=== PATIENT | female | born 1960 | race Caucasian/White ===

== ENCOUNTER → 2016-06-24 | Day surgery (SDC) | payer BC ==
[~2016-06-24] MED LIST: Buffered Lidocaine 1% SYR 3ML* 3 ML/SYR SYRINGE INTRADERM ONE; Bupivacaine 0.25% SDV* 30 ML ONE; Bupivacaine 0.5% W/EPI SDV* 30 ML VIAL ONE; DiMENhydriNATE IV* 50 MG/ML VIAL IV PUSH PRN; Metoclopramide TAB* 10 MG ONE; Metoclopramide TAB* 10 MG PO ONE; Midazolam* 1 MG/ML 5 ML VIAL (5 MG) ONE; Ondansetron INJ* 2 MG/ML VIAL IV PRN; Ondansetron INJ* 2 MG/ML VIAL ONE; Propofol* 10 MG/ML 20 ML BTL IV PUSH ONE; Scopolamine 1.5 mg* PATCH ONE; Scopolamine PATCH Remove* 1 NOTE MISC PATCH OFF ONE; ceFAZolin 2 GM PREMIX (*) 2 GM/50 ML BAG IVPB ONE; fentaNYL* 50 MCG/ML 2 ML VIAL (100 MCG VIAL) IV PRN; fentaNYL* 50 MCG/ML 2 ML VIAL (100 MCG VIAL) ONE; oxyCODONE/Acetamin 5/325 MG* TAB PO PRN
[2016-06-24] MEDS: Scopolamine 1.5 mg* PATCH TRANSDERM ONE ×2 (10:50→12:44)
[2016-06-24 15:55] VITALS: BP 128/64
--- NOTE | 2016-06-30 00:14 | OP ---
DATE OF OPERATION: 06/24/16 - [facility] DATE OF : 58 SURGEON: Modesto Cao MD CAR USHER: SANGITA Goodwin ANESTHESIOLOGIST: Dr. Rl Presley. ANESTHESIA: General. 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 POST-OP DIAGNOSES: 1. 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 2. Right scaphotrapezoid degenerative joint disease. OPERATIVE PROCEDURES: 1. Right thumb carpometacarpal interposition arthroplasty with trapeziectomy. 2. Distally based split flexor carpi radialis tendon transfer for thumb suspension. 3. Right partial trapezoidectomy. INDICATIONS: Xiao is a patient on whom I have done a left carpometacarpal arthroplasty and partial trapezoidectomy. She has had good pain relief and her motion is improving. She presented with similar severe pain in the right thumb. She wanted to proceed with surgery. We discussed risks and benefits including risk of stiffness and persistent pain. ESTIMATED BLOOD LOSS: 5 mL. COMPLICATIONS: None. FINDINGS: Degenerative joint disease in both the carpometacarpal joints of the thumb and in the scaphotrapezoid joints. DESCRIPTION OF PROCEDURE: Xiao was seen in the preoperative holding area and the correct site and side were marked. We came back to the operating room where anesthesia was induced. The arm was prepped and draped in the usual fashion and a formal time-out was performed. The arm was exsanguinated with the Esmarch and the tourniquet inflated to 250 mmHg. A longitudinal incision was made from the base of the thumb metacarpal proximal just staying dorsal to the first dorsal compartment tendons. Dissection was carried down and care was taken to preserve the dorsal sensory nerves. Full- thickness flaps were raised off the capsule of the basal joint. The radial artery was identified and mobilized, and protected throughout the procedure. I then made a longitudinal incision opening the capsules of the scaphotrapezoid joint and then the carpometacarpal joint, full thickness capsule and periosteal flaps were raised to release the soft tissue attachments around the trapezium. The basal joint, the trapeziotrapezoid joint and the scaphotrapezoid joint were all identified. I then went ahead and removed the trapezium with a rongeur. The FCR tendon was identified in the base of the wound and care was taken to preserve it throughout the trapeziectomy. Once all the bone was removed, I went ahead and made a drill hole through the base of the thumb metacarpal in a standard fashion from distal dorsal radial to proximal volar ulnar. I then went ahead and irrigated the wound and turned our attention to the volar forearm. After the trapeziectomy had been completed. I went ahead and pulled some longitudinal traction on the index finger and using a freer to get little bit more space, I was able to look at the scaphotrapezoid joint. There was complete full thickness loss of the cartilage on the distal aspect of the scaphoid. I therefore turned my osteotome and excised the most proximal 3 mm of the trapezoid. There was no more contact between the proximal trapezoid and the distal pole of the scaphoid with motion and with axial loading of that joint. I made a transverse incision over the distal aspect of the FCR tendon just proximal to the volar wrist flexion crease. The tendon was identified. I made two more transverse incisions each about 7 or 8 cm more proximal than the prior incision. All adhesions were released about the flexor carpi radialis tendon. I then delivered the tendon up into the most distal wound and split the tendon with a 15 blade. I passed a 26 gauge wire through the splint in the tendon. This was then sequentially pulled in to the two more proximal wounds, completing the split of the tendon in the musculotendinous junction. I then delivered the split into the tendon down into the distal wound and freed up and continued to split down in to the flexor carpi radialis sheath with a tenotomy scissors. A 26 gauge wire was then used to shuttle the tendon down into the thumb base wound. The split in the tendon was continued all the way down to the base of the second metacarpal with a tenotomy scissors. I then passed the free tail through the bony tunnel back around the intact limb of the FCR tendon and then set the tension and secured the tendon transverse with 3-0 Ethibond suture. The rest of the tendon was rolled up and secured as a ball with a 3-0 Ethibond suture. This was placed in an interposition fashion between the base of the thumb metacarpal and the distal scaphoid. A free tail of the tendon was left out of the ball and was placed as an interposition between the distal pole of the scaphoid and the proximal aspect of the trapezoid, where the partial trapezoidectomy had been performed. At this point, I was very satisfied with the interposition of the tendon and the partial trapezoidectomy. So we went ahead and irrigated with wound. The capsule was closed with some 3-0 Ethibond suture. The skin at the thumb base wound was closed using 4-0 nylon. The volar forearm wounds were closed with a buried 3-0 Polysorb followed by 4-0 nylon to close the skin. All wounds were dressed with Xeroform, 4x4s, sterile Webril and then a thumb spica splint was placed leaving the IP joint free. She was then awoken back up and taken the recovery room in stable condition. [id number]/[facility] #: [id number] [place]
== END | disposition home or self-care (01) ==
LOC: OREAST 10:34
PROVIDERS: ATTEND Orthopaedic Surgery Hand Surgery
DX: M18.11 Unilateral primary osteoarthritis of first carpometacarpal joint, right hand (principal); M19.041 Primary osteoarthritis, right hand; E03.9 Hypothyroidism, unspecified; K51.90 Ulcerative colitis, unspecified, without complications
CPT/HCPCS: 88304; 88311; A9270-GY; J0690; J2250; J2405; J2704; J3010

== ENCOUNTER 2018-11-27 20:02 | Emergency (ER) | payer BC ==
--- OUTSIDE RECORDS SUMMARY | 2018-11-27 20:10 | XMS REPORT | Continuity of Care Document ---
:1960 External Reference #:[id number] Author Name Gabriel Becker D.O. Address [address] [place] [address] Care Team Providers Name Role Phone HCP given Primary Care Physician Unavailable Payers Date Identification Numbers Payment Provider Subscriber Policy Number: [id number] [employer] Xiao Gorman PayID: [id number] [address] [address] [place] [address] Problems Active Problems Provider Date Hypothyroidism Yulissa Lopez MD Onset: 07/18/2008 Gastroesophageal reflux disease Yulissa Lopez MD Onset: 07/18/2008 Degeneration of cervical intervertebral disc Jose Scott M.D. Onset: Ulcerative colitis Jose Scott M.D. Onset: 01/19/2010 Backache Gabriel Becker D.O. Onset: 11/14/2013 Low back pain Gabriel Becker D.O. Onset: 11/14/2013 Rosacea Gabriel Becker D.O. Onset: 12/14/2013 Generalized osteoarthritis of the hand Gabriel Becker D.O. Onset: 12/14/2013 Psoriasis Gabriel Becker D.O. Onset: 12/27/2013 Benign neoplasm of colon Yulissa Lopez MD Onset: 01/09/2014 Insomnia Yulissa Lopez MD Onset: 01/09/2014 Osteochondropathy Gabriel Becker D.O. Onset: 01/16/2014 Disorder of magnesium metabolism Gabriel Becker D.O. Onset: 08/13/2015 Iron deficiency anemia Gabriel Becker D.O. Onset: 08/13/2015 Headache Gabriel Becker D.O. Onset: 08/13/2015 Anxiety state Gabriel Becker D.O. Onset: 12/29/2016 Family History Date Family Member(s) Observation Comments Father Hypertension Father Lymphoma Father TIA Father Alzheimer's Disease Father Colon Polyps Father Merry Louise Mother Glaucoma Mother Hypercholesterolemia Mother Colon Polyps Mother Moira Louise Number of Children 2 sons and 1 daughter. First Son Lenny Second Son Mohsen Second Daughter Migraine Second Daughter Violeta First Brother Hypercholesterolemia Second Brother Hypercholesterolemia First Sister Hypercholesterolemia Maternal Grandmother due to MS () Social History Type Date Description Comments Sex Unknown Education Highest Level Completed College Marital Status 2 Times Lives With in the warmer months she [place], in the winter they rent a condo in [place] and sail there as well. 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 Work Status Currently Working Hand Dominance 10/13/2018 Right-handed Abuse No history of abuse Tobacco Use Start: Unknown Denies Cigarette Use ETOH Use Rarely consumes alcohol Recreational Drug Use Former Drug User Tobacco Use Start: Unknown Non Smoker / No Tobacco Recreational Drug Use Denies Drug Use Current Smoking Status Reviewed: 10/13/18 Non Smoker / No Tobacco Sun Exposure excessive amount of sun exposure Sun Exposure Does not use sunscreen Seat Belt/Car Seat always uses seat belt Currently Active Patient is currently not sexually active Age 1st [place] 21 Years Old # Partners in a Lifetime Partners 1-5 Allergies, Adverse Reactions, Alerts Active Allergies Reaction Severity Comments Date Gabapentin 05/20/2011 Celexa 04/07/2012 Meloxicam Moderate Nausea and abd pain 11/01/2012 Mobic Moderate Nausea and abd pain 11/01/2012 Inactive Allergies NKDA 02/13/2004 Medications Active Medications SIG Qnty Indications Ordering Date Provider Alendronate Sodium take 1 tablet every 12tabs M81.0 [facility], 11/22/2018 week 30 mins before Lelo Rios. 35mg Tablets meal with 8 oz of water. do not lie down for 30 minutes after taking. Zolpidem Tartrate take 1/2-1 tablet by 30tabs G47.00 [facility], 11/20/2018 mouth at bedtime if Gabriel D.O. 10mg Tablets needed for sleep Bupropion take 1 tablet by 90tabs F34.1 [facility], 10/30/2018 Hydrochloride ER mouth once daily Adrian Rios (XL) 150mg Tablets ER 24HR Pepto Bismol prn Unknown 10/12/2018 Estradiol intravaginally twice Gannon, 09/18/2018 10mcg weekly MD Gloria Tablets Clobetasol apply to affected Gannon, 07/13/2018 Propionate area twice a day x MD Gloria 0.05% 7 days and then Ointment daily x 7 days Escitalopram Oxalate take 1 tablet by 30tabs F41.9 [facility], 06/20/2018 mouth once daily Adrian Rios 10mg Tablets Triamcinolone apply to affected 5gm [facility], 06/30/2017 Acetonide areas in mouth Adrian Rios 0.1% Cream 3-4x/d as needed Flonase Allergy 2 sprays each 47.400ml H65.23 [facility], 01/11/2017 Relief nostril in the Adrian Rios 50mcg/Act morning Suspension Meclizine HCL 1 tab by mouth three 90tabs H81.12 Darcie [place], 01/06/2017 25mg times a day as PA Tablets needed dizziness Ranitidine 150 1 cap by mouth twice 60tabs R11.0 [facility], 12/29/2016 Maximum Strength a day as needed Adrian Rios 150mg Tablets Calcium 1 daily Unknown 12/28/2016 500mg Colace 1 daily as needed Unknown 12/28/2016 100mg Capsules Carafate 10ml four times a 420ml [facility], 12/28/2016 1GM/10ML day as needed Adrian Rios Suspension Gas-X prn Unknown 12/28/2016 Benzoyl apply 1 application 46.600gm L71.8 [facility], 08/20/2016 Peroxide-Erythromyci topically to Adrian Rios n affected area 2 5-3% Gel times per day Magnesium 1 po twice daily Unknown 06/20/2016 100mg Tylenol 2 tablet by mouth Unknown 06/20/2016 325mg Tablets [id number] as needed for pain otc Ondansetron HCL 1 by mouth three 30tabs R11.0 [facility], 05/19/2016 4mg times a day as Gabriel, D.O. Tablets needed for nausea Levothyroxine Sodium Take 1 Tablet By 30tabs E03.8 [facility], 08/13/2015 Mouth Every Day Gabriel D.O. 100mcg Tablets Benzonatate 1 by mouth three 90caps [facility], 07/17/2015 200mg times a day as Gabriel, D.O. Capsules needed cough Soma 1 tab by mouth 90tabs M54.2 [facility], 12/28/2012 350mg Tablets t.i.d, as needed Gabriel, D.O. Lidoderm apply up to 3 30units M54.5 [facility], 09/03/2011 5% Patches patches to affected Reanna Garcia area for up to 12 hours a day as needed Diazepam 1 by mouth three 90tabs M54.89 [facility], 10/14/2006 5mg Tablets times a day as Gabriel, D.O. needed for back pain M54.2 Vitamin D3 1 by mouth every day Unknown 1000Unit Capsules Gluten Cutter Digestive as needed Unknown Enzyme Probiotic 2 capsules by mouth 180caps Yulissa Lopez MD Capsules daily. please cover the cost of this med. Xiao relies on it to regulate her bowels. History Medications Gas X prn Unknown 10/12/2018 - 11/21/2018 Zolpidem Tartrate ER take 1 tablet by 14tabs G47.00 [facility], 08/04/2018 - mouth daily at Gabriel D.OAbraham 11/20/2018 6.25mg Tablets ER bedtime Cefdinir 1 cap by mouth twice 14caps J01.90 [facility]onia, 07/17/2018 - 300mg a day x 7 days Reanna Garcia 08/05/2018 Capsules Mupirocin apply ointment 3 22gm J01.90 Sonia, 07/17/2018 - 2% Ointment times a day to in Reanna Garcia 08/05/2018 nose for 5 days Temazepam 1 qhs for sleep, prn 30caps G47.00 [facility], 07/17/2018 - 7.5mg Reanna Garcia 08/04/2018 Capsules Bactroban Nasal Apply 1 application 10gm [facility], 06/20/2017 - 2% into nostrils 2 times Adrian Rios 06/20/2017 Ointment per day for 5 days Bactroban Apply 1 application 15gm [facility], 06/20/2017 - 2% Cream topically to affected Adrian Rios 07/20/2017 area 3 times per day for 10days for skin infection Tobramycin 1 drop three times a 5ml [facility], 04/09/2017 - 0.3% day for 7 days Adrian Rios 04/16/2017 Solution Diurex as directed, 4 times Unknown 02/01/2017 - 50-162.5mg a day as needed when 07/16/2018 Tablets pt feels ears fill w/fluid Chelated Iron 2-3 times a week when Unknown 02/01/2017 - 29mg shaky or weak 09/29/2017 Lexapro 1 by mouth every day 30tabs F41.9 [facility], 01/11/2017 - 10mg Tablets Adrian Rios 06/20/2018 Zolpidem Tartrate ER take 1 tablet by 14tabs G47.00 [facility], 12/29/2016 - mouth daily at Thomas RiosOAbraham 01/10/2017 6.25mg Tablets ER bedtime Premarin 0.5 grams 30gm N89.8 [facility], 12/29/2016 - 0.625mg/GM intravaginally Thomas RiosOAbraham 10/12/2018 Cream twice-weekly Lexapro 1 by mouth every day 30tabs F41.9 [facility], 12/29/2016 - 5mg Tablets Thomas RiosOAbraham 01/11/2017 Zolpidem Tartrate 1/2-1 tablet by mouth 30tabs G47.00 [facility], 11/24/2016 - at bedtime for sleep Adrian Rios 07/17/2018 10mg Tablets code a mdd 1 Meclizine HCL take 2 tablet by 27tabs R42 [facility], 05/19/2016 - 25mg mouth 3 times per day Thomas RiosOAbraham 06/20/2016 Tablets for 3 days then 1 by mouth 3 times a day for 3 days then stop Ventolin HFA inhale 2 puffs by 16gm J20.9 [facility], 04/14/2016 - mouth every 4 hours Mark Rios.O. 06/20/2016 108(90Base) mcg/Act as needed for Aerosol bronchospasm Tylenol Extra 2 by mouth every 8 Unknown 04/13/2016 - Strength hours as for pain 06/21/2016 500mg Tablets Fluticasone 2 sprays into each 48units J01.00 [facility], 09/12/2015 - Propionate nostril once-twice Gabriel, D.O. 10/13/2015 50mcg/Act daily for nasal Suspension congestion Azithromycin take 1 tablet by 3tabs J01.00 [facility], 08/26/2015 - 500mg mouth daily for 3 Gabriel D.O. 08/29/2015 Tablets days for infection Slow-Mag 1-2 by mouth at night 60tabs E83.42 [facility], 08/13/2015 - 71.5-119mg Gabriel D.O. 06/20/[address] Iron (Ferrous 1 by mouth once to 180tabs D50.9 [facility], 08/13/2015 - Gluconate) twice a day Mark Rios.O. 10/13/2015 256(28Fe) mg Tablets Vitamin D3 Maximum 1 by mouth every day 90caps [facility], 08/04/2015 - Strength or 7 tablets once a Mark Rios.O. 10/13/2018 5000Unit week Capsules Iron Supplement 1 by mouth twice a 180tabs [facility], 08/04/2015 - day Gabriel D.O. 11/04/2015 325(65Fe) mg Tablets Amoxicillin/Clavulan 1 by mouth twice a 20tabs 01.00 [facility], 07/14/2015 - ate Potassium day Gabriel D.O. 07/22/2015 875-125mg Tablets Flonase Allergy 2 sprays twice a day 47.400ml [address] [place] [address], 07/14/2015 - Relief until better. Mark Rios.O. 09/12/2015 50mcg/Act Suspension Triamcinolone apply to affected 5gm [facility], 05/20/2015 - Acetonide areas in mouth 3-4x/d Mark Rios.O. 06/20/2016 0.1% Paste as needed Levothyroxine S[facility] 1 by mouth [facility]2014 - Adrian Rios 08/13/2015 112mcg Tablets Zolpidem Tartrate 1 every night at 30tabs G47.00 [facility], 07/16/2014 - bedtime as needed Adrian Rios 12/29/2016 10mg Tablets sleep code a, d Ferrousul 1 tab by mouth in hs. 100tabs Yulissa Lopez 01/23/2014 - 325(65Fe) for one week. if 02/22/2014 mg Tablets tolerable increase to one tab by mouth bid. start post hemmocult testing. Levoxyl one tab po daily 90tabs 244.8 Yulissa Lopez 01/23/2014 - 100mcg instead of the 112 10/12/2014 Tablets microgram dosing. labs in one month Celebrex one by mouth twice a 60caps M54.89 [facility], 01/09/2014 - 100mg day as needed pain Adrian Rios 10/11/2015 Capsules Physical And Massage 2x week indefinitely 724.5 Yulissa Lopez 01/09/2014 - Therapy 02/01/2017 Clobetasol use up to twice a day 118ml L45 [facility], 12/27/2013 - Propionate for 2 weeks for Adrian Rios 10/12/2018 0.05% psoriasis flares. Shampoo Bupropion HCL ER Take 1 Tablet By 90tabs F34.1 [facility], 12/21/2013 - (XL) Mouth Every Day Adrian Rios 10/30/2018 150mg Tablets ER 24HR Psoriasin use 1 - 4 times daily QS 696.8 [facility], 11/14/2013 - 3% Liquid until resovled then Adrian Rios 12/15/2013 decrease to 2-3 times/week Benzonatate 1 po prn cough q 8 30caps [facility], 10/09/2013 - 100mg hrs Adrian Rios 01/09/2014 Capsules Flonase inhale 2 sprays into 1units [facility], 10/09/2013 - 50mcg/Act nostril daily in each Adrian Rios 10/09/2014 Suspension nostril for nose inflammation Erythromycin/Benzoyl apply 1 application 46.600gm 695.3 [facility], 2013 - Peroxide topically to affected Thomas RiosO. 08/20/2016 5-3% Gel area 2 times per day Triamcinolone apply bid- three 60ml L71.8 [facility], 10/08/2013 - Acetonide times a day to GabrielMark.O. 02/01/2017 0.025% affected area Lotion Cream 5% cyclobenzaprine, 729.82 [facility], 08/30/2013 - 5% gabapentin. apply Mark Rios.O. 04/15/2015 to feet nightly to prevent cramps. # 30 grams 715.04 Medrol taper starting 6 21tabs 354.0 [facility], 06/08/2013 - 4mg Tablets tab,5 tabs...1 tab Mark Rios.O. 08/15/2013 qd. Take 5 ml by mouth 1bottle [facility], 01/26/2013 - 16.2mg/5ML 3 times per day Thomas RiosO. 08/16/2013 Elixir for acute small and large intestine inflammation Biaxin Take 1 tablet by 20tabs 461.0 [facility], 01/22/2013 - 500mg Tablets mouth every 12 Gabriel, D.O. 06/08/2013 hours for 10 days for sinus irritation and congestion Voltaren apply to painful 60gm 723.1 [facility] 01/12[facility]2013 - 1% Gel areas prn Reanna Garcia 10/07/2013 pain.wait 10 min before getting dressed to prevent rubbing off.samples given Diflucan 1 tablet, 1 time 1tabs 616.10 Sonia, 12/05/2012 - 150mg Tablets Reanna Garcia 12/06/2012 Diclofenac Sodium 1 po tid , prn 60tabs 715.90 Sonia, 11/23/2012 - 50mg Reanna Garcia 01/19/[address] Azithromycin 2 tabs day one, 6tabs Sonia, 11/11/2012 - 250mg one tab days 2-5 Reanna Garcia 11/17/2012 Tablets Amoxicillin/Clavulanat 1 tab po bid x 10 20tabs 461.2 [facility]onia, 11/01/2012 - e Potassium Reanna Garcia 11/02/2012 875-125mg Tablets Celebrex take 1 capsule by 180caps 724.5 [facility]onia, 11/01/2012 - 200mg Capsules mouth 1 To 2 Times Reanna Garcia 01/09/2014 Per Day as Needed For Back Pain Meloxicam 1 po bid 60tabs 724.5 Sonia, 10/12/2012 - 7.5mg Tablets Reanna Garcia 11/01/2012 Celebrex take 1 capsule by 180caps 724.5 Sonia, 05/19/2012 - 200mg Capsules mouth 1 To 2 Times Reanna Garcia 10/12/2012 Per Day as Needed For Back Pain Zolpidem Tartrate 1 every at bedtime 30tabs 780.52 [facility], 03/17/2012 - 10mg as needed sleep Gabriel D.Theodore 02/08/2014 Tablets Citalopram 1 tab qd x 1 week 60tabs 300.00 Sonia, 03/15/2012 - Hydrobromide then increase to 2 Reanna Garcia 04/07/2012 10mg Tablets tabs qd Mucinex DM 1 bid prn cough OTC Sonia, 10/05/2011 - 30-600mg Reanna Garcia 10/05/2012 Tablets ER 12HR Prochlorperazine take 1 tablet by 30tabs Sonia, 09/30/2011 - Maleate mouth three times Reanna Garcia 10/05/2012 10mg Tablets a day if needed for nausea Tramadol HCL 1-2 by mouth every 200tabs 724.2 [facility]onia, 09/03/2011 - 50mg Tablets 6 hours as needed Reanna Garcia 10/08/2013 for back pain Fluticasone Propionate 2 sprays into each 48gm 473.0 Rosita, 09/03/2011 - nostril once-twice Gabriel D.OAbraham 10/09/2013 50mcg/Act Suspension daily for nasal congestion 473.1 Gabapentin 1 po starting qhs 90caps 729.2 Jose Scott 04/08/2011 - 100mg x 5 days then bid M.D. 05/20/2011 Capsules x 5 days then tid. Celebrex 1 capsule 60caps 724.5 Jose Scott, 04/08/2011 - 200mg 1-2x/day as M.D. 03/17/2012 Capsules needed for back pain Compazine 1 tablet 3x/day 30tabs 787.01 Jose Scott, 01/12/2011 - 10mg as needed for M.D. 05/19/2012 Tablets nausea Sumatriptan 1 po at first 9tabs 784.0 Jose Scott, 12/28/2010 - Succinate sign of migraine; M.D. 10/05/2011 100mg may repeat in 2 Tablets hours if migraine partially relieved; max 3 doses/week Amoxicillin 2 po tid for 10 60tabs 784.0 Jose Scott, 12/28/2010 - 500mg days for M.D. 01/07/2011 Tablets sinusitis Bupropion HCL XL Take 1 tab Daily 180tabs 300.4 Jose Scott, 2010 - M.D. 10/23/2017 150mg Tablets ER 24HR Ferrous Fumarate 1 by mouth every 780.79 Jose Scott, 09/28/2010 - 324 day M.D. 12/25/2010 324mg Tablets 280.9 Terazol 7 use daily as 45gm 112.1 Jose Scott, 08/15/2010 - 0.4% directed x1wk for M.D. 08/22/2010 Cream yeast infection Vitamin D-3 1 po qd Unknown 07/27/2010 - 03/28/2012 1000Unit Tablets Ferrous Fumarate 1 tab po bid 180tabs 780.79 Jose Scott, 07/05/2010 - 324 M.D. 09/28/2010 324mg Tablets 280.9 Bupropion HCL XL 1 po qam 90tabs 300.4 Sonia, 07/03/2010 - Reanna Garcia 10/19/2010 300mg Tablets ER 24HR Bupropion HCL SR 1 pill every 300.4 Sonia, 07/02/2010 - morning Reanna Garcia 07/03/2010 150mg Tablets ER 12HR Ferrous Fumarate 324 1 tab po bid 180tabs 780.79 Sonia 06/29/2010 - Reanna Garcia 07/03/2010 324mg Tablets Dicyclomine HCL 1-2 po tid prn for 180caps 789.07 Sonia, 06/26/2010 - 10mg abdominal pain Reanna Garcia 01/09/2014 Capsules Nortriptyline HCL 1 po qhs to start; 150caps 723.1 Sonia, 02/11/2010 - inc by 1 tab q3-7 Reanna Garcia 07/02/2010 10mg Capsules days if needed; max 5 pills/night; Fish Oil 3 qd Sonia, 01/19/2010 - 1200 Reanna Garcia 03/28/2012 Capsules Ambien 1 tab po qhs prn 30tabs 780.52 Sonia, 01/19/2010 - 10mg Tablets for sleep Reanna Garcia 03/15/2012 Probiotic Formula Sonia, 01/19/2010 - Reanna Garcia 03/28/2012 Capsules Pantoprazole Sodium take 1 tablet once 90tabs 530.81 Gabriel Becker 12/26 - a day as needed D.O. 11/20/2015 40mg Tablets Bupropion HCL SR 1 po bid; take 180tabs 300.4 Eugeniecoaneesh, 12/25/2009 - last dose of the Reanna Garcia 07/02/2010 150mg Tablets ER day by mid 12HR afternoon Lialda 2 po qam 556.5 Juan Pablo Bolden, 09/10/2009 - 1.2gm Tablets 01/19/2010 Zolpidem Tartrate 1 po qhs prn for 30tabs 780.52 Sonia, 05/16/2009 - sleep; you should Reanna Garcia 07/02/2010 10mg Tablets only take this if you have 8hrs to devote to sleep Bupropion HCL 1 po qam 90tabs 300.4 Sonia, 05/16/2009 - 150mg Reanna Garcia 12/25/2009 Tablets ER 24HR Lidoderm apply to intact 30units 724.5 Yulissa Lopez 01/23/2009 - 5% Patches skin in region of 01/19/2010 pain. up to 3 patches , once for up to 12 hours within 24 hours Nerve Conduction Bilateral Upper 782.0 Sonia 10/16/2008 - Studies Extremities Reanna Garcia 05/06/2009 Pantoprazole Sodium 1 po qd 90tabs 787.02 Sonia 09/21/2008 - Reanna Garcia 12/26/2009 40mg Tablets 789.06 530.81 Cymbalta 1 po qd for 2 60caps 723.1 Jose Scott 08/21/2008 - 30mg weeks then 1 po M.D. 10/16/2008 Caps Part bid Skelaxin 1 po tid prn for 50tabs 723.1 Jose Scott 07/18/2008 - 800mg your muscle spasm M.D. 10/16/2008 Tablets like pain. Voltaren apply to painful 480gm 723.1 Yulissa Lopez MD 07/18/2008 - 1% Gel areas prn 09/13/2010 pain.wait 10 min before getting dressed to prevent rubbing off.samples given Protonix 1 PO bid for 1 120tabs 787.02 Jose Scott 03/04/2008 - 40mg month then M.D. 09/21/2008 Tablets decrease to qd 789.06 530.81 Protonix 1 PO qd 90tabs 787.02 Jose Scott, 12/25/2007 - 40mg Tablets M.D. 03/04/2008 789.06 Levoxyl take 1 tablet 90tabs 244.8 Rosita, 10/12/2007 - 112mcg Tablets daily in the Gabriel, D.O. 01/23/2014 morning on an empty stomach Luxiq Apply To Affected 100gm rohit 12/14/2006 - 0.12% Foam Area Sparingly 10/09/2007 bid Compazine 1 po tid prn for 30tabs 787.01 Sonia 10/14/2006 - 10mg Tablets nausea Reanna Garcia 01/23/2009 Vicodin 1 po q 4 hours 30tabs 724.5 rohit 10/14/2006 - 5-500mg Tablets prn pain 10/09/2007 Zithromax Z-Deandre take as directed rohit 02/04/2006 - 250mg 10/09/2007 Tablets #one pack Scopolamine Transdermal apply one patch 5units klepack 05/21/2005 - System every 72 hours as 10/09/2007 0.33mg/24 Hours needed for motion Patches sickness Tessalon 1 PO tid Cough. 30units [facility] 09/18/2004 - 100mg Perles Nothing In Mouth 10/09/2007 After Medication. Guaifenesin 1 po q4h cough 30caps 300.00 rohit 07/09/2004 - 200mg Capsules 10/09/2007 Tylenol W/ Codeine #3 1 po tid cough 30tabs 300.00 [facility] 07/09/2004 - 10/09/2007 300mg;30 mg Tablets Work Note patient seen and 300.00 [facility] 07/09/2004 - treated here. 07/12/2004 suggest next 72 hours off. Pseudoephedrine 1 PO bid [facility] - 120mg 10/09/2007 Tablets Amoxicillin 1 po tid 30caps 300.00 [facility] 07/09/2004 - 500mg Capsules 11/30/2004 Levoxyl 1 po qd 90tabs 244.8 Leland AAbraham 03/13/2003 - 125mcg Tablets Reanna Heath 10/12/2007 Acidophilus 1 qd Unknown - Capsules 01/19/2010 Multivitamins 2 by mouth every OTC Unknown - Capsules day 11/21/2018 Mucinex 1 by mouth twice otc Unknown - 600mg Tablets ER a day prn 06/20/2016 12HR Prochlorperazine take one tablet Unknown - Maleate by mouth every 8 08/04/2015 10mg Tablets hours as needed for nausea Magnesium Oxide Take 2 tablets by 180tabs [facility], - 400mg mouth daily Gabriel D.OAbraham 08/13/2015 Tablets Potassium Chloride Alexia Unknown - ER 04/13/2016 20Meq Tablets ER Ondansetron Place 1 tablet on 30tabs Sopchak, - 4mg Tablets the tongue and Gabriel D.O. 06/20/2016 Dispers allow to dissolve every 8 hours for prevention of nausea and vomiting Medications Administered in Office Medication SIG Qnty Indications Ordering Provider Date SC/Im Injections Sopchak, Gabriel, D.O. 04/14/2016 Injection Immunizations CPT Code Status Date Vaccine Lot # [id number] Refused 05/11/2014 Flu, Split Virus 3Yrs Vital Signs Date Vital Result Comment 11/22/2018 2:01pm BP Systolic 120 mmHg BP Diastolic 67 mmHg Height 62.25 inches 5'2.25" Weight 156.00 lb BMI (Body Mass Index) 28.3 kg/m2 10/13/2018 1:54pm BP Systolic 108 mmHg BP Diastolic 74 mmHg Height 62.25 inches 5'2.25" Weight 156.00 lb BMI (Body Mass Index) 28.3 kg/m2 07/17/2018 4:59pm BP Systolic 108 mmHg BP Diastolic 62 mmHg Body Temperature 98.0 F Height 62 inches 5'2" Weight 151.00 lb BMI (Body Mass Index) 27.6 kg/m2 10/24/2017 11:38am BP Systolic 96 mmHg BP Diastolic 64 mmHg 09/29/2017 2:06pm BP Systolic 112 mmHg BP Diastolic 66 mmHg 09/09/2017 4:38pm BP Systolic 116 mmHg BP Diastolic 70 mmHg Height 62.5 inches 5'2.50" Weight 147.00 lb BMI (Body Mass Index) 26.5 kg/m2 02/02/2017 4:48pm BP Systolic 136 mmHg BP Diastolic 78 mmHg 01/11/2017 9:56am BP Systolic 120 mmHg BP Diastolic 70 mmHg Height 62.50 inches 5'2.50" Weight 144.00 lb BMI (Body Mass Index) 25.9 kg/m2 01/06/2017 12:00pm BP Systolic 112 mmHg BP Diastolic 68 mmHg 12/29/2016 5:05pm BP Systolic 124 mmHg BP Diastolic 68 mmHg Weight 146.00 lb 06/21/2016 4:37pm BP Systolic 110 mmHg BP Diastolic 78 mmHg Height 62.25 inches 5'2.25" Weight 145.00 lb BMI (Body Mass Index) 26.3 kg/m2 05/19/2016 3:37pm BP Systolic 108 mmHg BP Diastolic 64 mmHg 05/06/2016 2:11pm BP Systolic 138 mmHg BP Diastolic 80 mmHg Weight 144.00 lb 04/14/2016 4:55pm BP Systolic 126 mmHg BP Diastolic 74 mmHg Body Temperature 97.9 F Height 62 inches 5'2" Weight 144.00 lb BMI (Body Mass Index) 26.3 kg/m2 08/13/2015 4:55pm BP Systolic 120 mmHg BP Diastolic 70 mmHg Weight 139.00 lb 07/22/2015 4:38pm BP Systolic 116 mmHg BP Diastolic 70 mmHg 07/14/2015 10:29am BP Systolic 126 mmHg BP Diastolic 76 mmHg Body Temperature 98.2 F Height 62 inches 5'2" Weight 140.00 lb BMI (Body Mass Index) 25.6 kg/m2 10/18/2014 3:59pm BP Systolic 111 mmHg BP Diastolic 62 mmHg Heart Rate 82 /min Body Temperature 98.1 F Height 62.25 inches 5'2.25" Weight 143.00 lb BMI (Body Mass Index) 25.9 kg/m2 05/11/2014 11:39am BP Systolic 104 mmHg BP Diastolic 66 mmHg Body Temperature 97.9 F Weight 145.00 lb 02/12/2014 9:49am BP Systolic 98 mmHg BP Diastolic 60 mmHg Height 62.25 inches 5'2.25" Weight 144.00 lb BMI (Body Mass Index) 26.1 kg/m2 01/16/2014 3:03pm BP Systolic 116 mmHg BP Diastolic 65 mmHg 01/09/2014 9:28am BP Systolic 104 mmHg BP Diastolic 66 mmHg Height 62.25 inches 5'2.25" Weight 141.00 lb BMI (Body Mass Index) 25.6 kg/m2 12/27/2013 4:44pm BP Systolic 110 mmHg BP Diastolic 78 mmHg Waist Circumference ` 12/14/2013 9:31am BP Systolic 114 mmHg BP Diastolic 64 mmHg Weight 142.00 lb 11/14/2013 3:15pm BP Systolic 118 mmHg BP Diastolic 64 mmHg 11/07/2013 11:59am BP Systolic 116 mmHg BP Diastolic 76 mmHg Body Temperature 98.2 F Weight 139.00 lb 10/08/2013 5:33pm BP Systolic 108 mmHg BP Diastolic 70 mmHg Height 62.5 inches 5'2.50" Weight 141.00 lb BMI (Body Mass Index) 25.4 kg/m2 08/30/2013 4:51pm BP Systolic 110 mmHg BP Diastolic 78 mmHg Body Temperature 98.2 F Weight 140.00 lb 06/08/2013 4:15pm BP Systolic 105 mmHg BP Diastolic 60 mmHg Heart Rate 69 /min Weight 137.50 lb 01/22/2013 4:08pm BP Systolic 118 mmHg BP Diastolic 76 mmHg Body Temperature 98.0 F Weight 134.00 lb 12/28/2012 3:28pm BP Systolic 113 mmHg BP Diastolic 56 mmHg Heart Rate 70 /min Height 62.25 inches 5'2.25" Weight 137.00 lb BMI (Body Mass Index) 24.9 kg/m2 Last Menstrual Period [id number] 12/05/2012 4:34pm BP Systolic 120 mmHg BP Diastolic 72 mmHg Heart Rate 72 /min Body Temperature 98.4 F Weight 138.00 lb 11/23/2012 4:35pm BP Systolic 111 mmHg BP Diastolic 62 mmHg Heart Rate 77 /min Weight 140.00 lb 11/01/2012 4:11pm BP Systolic 107 mmHg BP Diastolic 61 mmHg Heart Rate 77 /min Body Temperature 98.2 F Weight 137.00 lb 06/28/2012 1:51pm BP Systolic 133 mmHg BP Diastolic 68 mmHg Heart Rate 80 /min 05/19/2012 10:51am BP Systolic 115 mmHg BP Diastolic 63 mmHg Heart Rate 73 /min Height 62.50 inches 5'2.50" Weight 137.00 lb BMI (Body Mass Index) 24.7 kg/m2 04/19/2012 12:11pm BP Systolic 122 mmHg BP Diastolic 70 mmHg Heart Rate 76 /min Weight 137.00 lb Last Menstrual Period 0 04/07/2012 4:14pm BP Systolic 109 mmHg BP Diastolic 63 mmHg Heart Rate 73 /min Weight 136.00 lb Last Menstrual Period 0 03/20/2012 1:29pm BP Systolic 115 mmHg BP Diastolic 67 mmHg Heart Rate 77 /min 03/15/2012 11:31am BP Systolic 101 mmHg BP Diastolic 63 mmHg Heart Rate 65 /min Weight 133.00 lb Last Menstrual Period 0 10/06/2011 2:39pm BP Systolic 116 mmHg BP Diastolic 60 mmHg Height 62.50 inches 5'2.50" Weight 135.00 lb BMI (Body Mass Index) 24.3 kg/m2 09/03/2011 2:40pm BP Systolic 110 mmHg BP Diastolic 60 mmHg Body Temperature 98.2 F Weight 137.00 lb 05/20/2011 4:44pm BP Systolic 116 mmHg BP Diastolic 64 mmHg Heart Rate 65 /min Body Temperature 97.9 F Height 62.50 inches 5'2.50" Weight 134.00 lb BMI (Body Mass Index) 24.1 kg/m2 04/08/2011 4:02pm BP Systolic 100 mmHg BP Diastolic 62 mmHg Heart Rate 65 /min Body Temperature 98.1 F Weight 136.00 lb Last Menstrual Period 0 12/28/2010 3:15pm BP Systolic 110 mmHg BP Diastolic 74 mmHg Body Temperature 98.1 F Weight 136.00 lb 09/26/2010 9:22am BP Systolic 100 mmHg BP Diastolic 62 mmHg Weight 135.00 lb Last Menstrual Period 0 09/14/2010 3:05pm BP Systolic 108 mmHg BP Diastolic 69 mmHg Heart Rate 69 /min Weight 137.00 lb 07/28/2010 3:12pm BP Systolic 114 mmHg BP Diastolic 72 mmHg Height 62.75 inches 5'2.75" Weight 136.00 lb BMI (Body Mass Index) 24.3 kg/m2 07/03/2010 2:06pm BP Systolic 124 mmHg BP Diastolic 70 mmHg BP Systolic Recheck 118 mmHg R arm sitting; 116/74 standing BP Diastolic Recheck 72 mmHg R arm sitting; 116/74 standing Heart Rate 88 /min reg (similar lying and standing) Respiratory Rate 12 /min not laboured Weight 135.00 lb 06/29/2010 10:59am BP Systolic 144 mmHg BP Diastolic 83 mmHg BP Systolic Recheck 118 mmHg BP Diastolic Recheck 89 mmHg Heart Rate 65 /min 63 Respiratory Rate 21 /min O2 % BldC Oximetry 98 % Body Temperature 98.0 F Weight 136.00 lb 02/11/2010 2:39pm BP Systolic 112 mmHg BP Diastolic 78 mmHg 01/19/2010 1:33pm BP Systolic 104 mmHg BP Diastolic 80 mmHg Height 62.25 inches 5'2.25" Weight 144.00 lb BMI (Body Mass Index) 26.1 kg/m2 Last Menstrual Period 0 05/16/2009 5:58pm BP Systolic 110 mmHg BP Diastolic 72 mmHg Weight 156.00 lb 01/23/2009 1:50pm BP Systolic 122 mmHg BP Diastolic 80 mmHg Height 62.5 inches 5'2.50" Weight 153.00 lb BMI (Body Mass Index) 27.5 kg/m2 11/25/2008 9:02am BP Systolic 100 mmHg BP Diastolic 64 mmHg Weight 152.00 lb 10/16/2008 4:03pm BP Systolic 112 mmHg BP Diastolic 64 mmHg Height 62.5 inches 5'2.50" Weight 150.00 lb BMI (Body Mass Index) 27.0 kg/m2 08/21/2008 9:21am BP Systolic 118 mmHg BP Diastolic 68 mmHg Weight 140.00 lb 08/09/2008 3:38pm BP Systolic 130 mmHg BP Diastolic 86 mmHg Body Temperature 98.1 F Weight 153.00 lb 07/18/2008 9:26am BP Systolic 116 mmHg BP Diastolic 66 mmHg Height 62.75 inches 5'2.75" Weight 156.00 lb BMI (Body Mass Index) 27.9 kg/m2 Last Menstrual Period [id number] 03/04/2008 11:38am BP Systolic 120 mmHg BP Diastolic 82 mmHg Height 62.5 inches 5'2.50" Weight 150.00 lb BMI (Body Mass Index) 27.0 kg/m2 Last Menstrual Period 0 01/12/2008 4:23pm BP Systolic 112 mmHg BP Diastolic 70 mmHg Height 62.5 inches 5'2.50" Weight 150.00 lb BMI (Body Mass Index) 27.0 kg/m2 12/25/2007 3:11pm BP Systolic 102 mmHg BP Diastolic 70 mmHg Body Temperature 97.9 F Height 62.6 inches 5'2.60" Weight 150.00 lb BMI (Body Mass Index) 26.9 kg/m2 Last Menstrual Period 0 11/16/2007 4:07pm BP Systolic 116 mmHg BP Diastolic 78 mmHg Height 62.6 inches 5'2.60" Weight 147.00 lb BMI (Body Mass Index) 26.4 kg/m2 Last Menstrual Period 0 10/09/2007 5:13pm BP Systolic 114 mmHg BP Diastolic 60 mmHg Height 62.6 inches 5'2.60" Weight 152.00 lb BMI (Body Mass Index) 27.3 kg/m2 05/10/2007 4:50pm BP Systolic 108 mmHg BP Diastolic 70 mmHg Height 62.6 inches 5'2.60" Weight 154.00 lb BMI (Body Mass Index) 27.6 kg/m2 04/14/2007 1:14pm BP Systolic 90 mmHg BP Diastolic 60 mmHg Body Temperature 98.6 F Height 62.6 inches 5'2.60" Weight 155.00 lb BMI (Body Mass Index) 27.8 kg/m2 12/01/2006 4:31pm BP Systolic 115 mmHg BP Diastolic 80 mmHg Height 62.6 inches 5'2.60" Weight 154.00 lb BMI (Body Mass Index) 27.6 kg/m2 10/24/2006 4:23pm BP Systolic 130 mmHg BP Diastolic 58 mmHg Height 62.6 inches 5'2.60" 10/14/2006 2:49pm BP Systolic 110 mmHg BP Diastolic 78 mmHg Height 62.6 inches 5'2.60" 10/14/2006 2:27pm Height 62.6 inches 5'2.60" 09/21/2006 3:06pm BP Systolic 114 mmHg BP Diastolic 68 mmHg Height 62.6 inches 5'2.60" Weight 154.50 lb BMI (Body Mass Index) 27.7 kg/m2 11/30/2004 1:51pm BP Systolic 120 mmHg BP Diastolic 72 mmHg Height 62.6 inches 5'2.60" Weight 153.00 lb BMI (Body Mass Index) 27.4 kg/m2 07/09/2004 10:06am BP Systolic 110 mmHg BP Diastolic 68 mmHg Body Temperature 98.1 F Height 62.6 inches 5'2.60" Weight 154.00 lb BMI (Body Mass Index) 27.6 kg/m2 02/13/2004 1:36pm BP Systolic 106 mmHg BP Diastolic 70 mmHg Height 62.6 inches 5'2.60" Weight 150.00 lb BMI (Body Mass Index) 26.9 kg/m2 Results Test Date Facility Test Result H/L Range Note CBC Auto Diff 10/16/2018 [facility] White Blood 4.9 10^3/uL N 3.5- 10.8 [phone] Count Red Blood Count 4.37 10^6/uL N 3.70-4.87 Hemoglobin 13.7 g/dL N 12.0-16.0 Hematocrit 40 % N 35-47 Mean Corpuscular Volume 90 fL N 80-97 Mean Corpuscular Hemoglobin 31 pg N 27-31 Mean Corpuscular HGB Conc 35 g/dL N 31-36 Red Cell Distribution Width 13 % N 10-15 Platelet Count 180 10^3/uL N 150-450 Mean Platelet Volume 8.9 fL N 7.4-10.4 Abs Neutrophils 3.1 10^3/uL N 1.5-7.7 Abs Lymphocytes 1.2 10^3/uL N 1.0-4.8 Abs Monocytes 0.4 10^3/uL N 0-0.8 Abs Eosinophils 0.2 10^3/uL N 0-0.6 Abs Basophils 0.0 10^3/uL N 0-0.2 Abs Nucleated RBC 0.0 10^3/uL Granulocyte % 63.4 % Lymphocyte % 25.2 % Monocyte % 7.7 % Eosinophil % 3.2 % Basophil % 0.5 % Nucleated Red Blood Cells % 0.2 Comp Metabolic Panel 10/16/2018 [facility] Sodium 140 mmol/L N 135- 145 [phone] Potassium 4.3 mmol/L N 3.5-5.0 Chloride 104 mmol/L N 101-111 Co2 Carbon Dioxide 29 mmol/L N 22-32 Anion Gap 7 mmol/L N 2-11 Calcium 9.7 mg/dL N 8.6-10.3 Albumin 4.1 g/dL N 3.2-5.2 Total Bilirubin 0.40 mg/dL N 0.2-1.0 Glucose 87 mg/dL N 70-100 Blood Urea Nitrogen 15 mg/dL N 6-24 Creatinine 0.80 mg/dL N 0.51-0.95 BUN/Creatinine Ratio 18.8 N 8-20 Total Protein 6.4 g/dL N 6.4-8.9 Globulin 2.3 g/dL N 2-4 Albumin/Globulin Ratio 1.8 N 1-3 Alkaline Phosphatase 116 U/L High 34-104 Alt 24 U/L N 7-52 Ast 22 U/L N 13-39 Egfr Non- 73.4 >60 Egfr 88.8 >60 1 Laboratory test finding 10/16/2018 [facility] Magnesium 2.0 mg/dL N 1.9-2.7 2 [phone] Iron (Fe) 134 g/dL N 50-212 3 Ferritin 27.9 ng/mL N 11-307 4 TSH (Thyroid Stim Horm) 0.85 mcIU/mL N 0.34-5.60 5 Vitamin B12 605 pg/mL N 180-914 6 Erythrocyte Sed Rate 8 mm/Hr N 0-29 7 C Reactive Protein < 1.00 mg/L N <8.01 8 Connective Tissue 10/16/2018 [facility] Anti-Nuclear Antibody 2.1 U High 9 Panel [phone] Cyclic Citrullinated Peptide <15.6 U 10 Interpretation See Comment 11 Lipid Profile (Trig/Chol/HDL) 10/16/2018 [facility] Triglycerides 95 mg /dL 12 [phone] Cholesterol 207 mg/dL 13 HDL Cholesterol 61.3 mg/dL 14 LDL Cholesterol 127 mg/dL 15 Xray 12/01/2017 [facility] MRI Lumbar Spine lft [address] W/O Contrast [place], [place] [id number] [phone] CBC Auto Diff 07/26/2017 [facility] White Blood 4.1 10^3/uL N 3.5- 10.8 [phone] Count Red Blood Count 4.73 10^6/uL N 4.0-5.4 Hemoglobin 14.7 g/dL N 12.0-16.0 Hematocrit 43 % N 35-47 Mean Corpuscular Volume 90 fL N 80-97 Mean Corpuscular Hemoglobin 31 pg N 27-31 Mean Corpuscular HGB Conc 35 g/dL N 31-36 Red Cell Distribution Width 13 % N 10.5-15 Platelet Count 185 10^3/uL N 150-450 Mean Platelet Volume 9 um3 N 7.4-10.4 Abs Neutrophils 2.3 10^3/uL N 1.5-7.7 Abs Lymphocytes 1.2 10^3/uL N 1.0-4.8 Abs Monocytes 0.4 10^3/uL N 0-0.8 Abs Eosinophils 0.2 10^3/uL N 0-0.6 Abs Basophils 0 10^3/uL N 0-0.2 Abs Nucleated RBC 0 10^3/uL Granulocyte % 55.3 % N 38-83 Lymphocyte % 29.3 % N 25-47 Monocyte % 9.4 % High 0-7 Eosinophil % 5.1 % N 0-6 Basophil % 0.9 % N 0-2 Nucleated Red Blood Cells % 0.1 Comp Metabolic Panel 07/26/2017 [facility] Sodium 136 mmol/L N 133- 145 [phone] Potassium 4.1 mmol/L N 3.5-5.0 Chloride 103 mmol/L N 101-111 Co2 Carbon Dioxide 29 mmol/L N 22-32 Anion Gap 4 mmol/L N 2-11 Glucose 91 mg/dL N 70-100 Blood Urea Nitrogen 13 mg/dL N 6-24 Creatinine 0.78 mg/dL N 0.51-0.95 BUN/Creatinine Ratio 16.7 N 8-20 Calcium 9.4 mg/dL N 8.6-10.3 Total Protein 6.4 g/dL N 6.4-8.9 Albumin 4.0 g/dL N 3.2-5.2 Globulin 2.4 g/dL N 2-4 Albumin/Globulin Ratio 1.7 N 1-3 Total Bilirubin 0.40 mg/dL N 0.2-1.0 Alkaline Phosphatase 111 U/L High 34-104 Alt 30 U/L N 7-52 Ast 24 U/L N 13-39 Egfr Non- 75.9 >60 Egfr 97.6 >60 16 Laboratory test finding 07/26/2017 [facility] Magnesium 1.9 mg/dL N 1.9-2.7 [phone] Iron (Fe) 114 g/dL N 50-212 Ferritin 26.6 ng/mL N 11-307 TSH (Thyroid Stim Horm) 1.43 mcIU/mL N 0.34-5.60 Laboratory test 07/28/2016 [facility] Vitamin D Total 64.7 ng/mL High 30-50 17 finding [phone] 25(Oh) Lipid Profile 07/28/2016 [facility] Triglycerides 86 mg/dL N 18 (Trig/Chol/HDL) [phone] Cholesterol 209 mg/dL N 19 HDL Cholesterol 65.3 mg/dL N 20 LDL Cholesterol 127 mg/dL N 21 Basic Metabolic Panel 07/28/2016 [facility] Sodium 139 mmol/L N 133- 145 [phone] Potassium 3.9 mmol/L N 3.5-5.0 Chloride 104 mmol/L N 101-111 Co2 Carbon Dioxide 28 mmol/L N 22-32 Anion Gap 7 mmol/L N 2-11 Glucose 82 mg/dL N 70-100 Blood Urea Nitrogen 13 mg/dL N 6-24 Creatinine 0.87 mg/dL N 0.51-0.95 BUN/Creatinine Ratio 14.9 N 8-20 Calcium 9.5 mg/dL N 8.6-10.3 Egfr Non- 67.1 N >60 Egfr 86.3 N >60 22 HIV 1/2 AB 07/28/2016 [facility] HIV 1 2 Nonreactive N Nonreactive 23 Evaluation [phone] Antibody Laboratory 07/28/2016 [facility] Hepatitis C Nonreactive N Nonreactive 24 test finding [phone] Antibody Xray 06/21/2016 [facility] Dexa Bone osteopenia Density Study One Or More Sites Axial Skeleton Comp Metabolic 05/06/2016 [facility] Sodium 138 mmol/L N 133-145 Panel [phone] Potassium 4.1 mmol/L N 3.5-5.0 Chloride 102 mmol/L N 101-111 Co2 Carbon Dioxide 32 mmol/L N 22-32 Anion Gap 4 mmol/L N 2-11 Glucose 83 mg/dL N 70-100 Blood Urea Nitrogen 12 mg/dL N 6-24 Creatinine 0.95 mg/dL N 0.51-0.95 BUN/Creatinine Ratio 12.6 N 8-20 Calcium 9.4 mg/dL N 8.6-10.3 Total Protein 6.4 g/dL N 6.4-8.9 Albumin 3.9 g/dL N 3.2-5.2 Globulin 2.5 g/dL N 2-4 Albumin/Globulin Ratio 1.6 N 1-3 Total Bilirubin 0.30 mg/dL N 0.2-1.0 Alkaline Phosphatase 94 U/L N 34-104 Alt 22 U/L N 7-52 Ast 23 U/L N 13-39 Egfr Non- 60.9 N >60 Egfr 78.3 N >60 25 Urinalysis Profile 03/03/2016 [facility] Urine Color Colorless N [phone] Urine Appearance Clear N Urine Specific [place] 1.004 Low 1.010-1.030 Urine pH 7.0 N 5-9 Urine Urobilinogen Negative N Negative Urine Ketones Negative N Negative Urine Protein Negative N Negative Urine Leukocytes Negative N Negative Urine Blood 2+ Abnormal Negative Urine Nitrite Negative N Negative Urine Bilirubin Negative N Negative Urine Glucose Negative N Negative Urine White Blood Cell Absent N Absent Urine Red Blood Cell Trace(0-2/hpf) N Absent Urine Bacteria Absent N Absent Urine Squamous Epithelial Cell Present Abnormal Absent CBC Auto Diff 03/03/2016 [facility] White Blood Count 5.3 10^3/uL N 3.5-10.8 [phone] Red Blood Count 4.33 10^6/uL N 4.0-5.4 Hemoglobin 12.1 g/dL N 12.0-16.0 Hematocrit 37 % N 35-47 Mean Corpuscular Volume 85 fL N 80-97 Mean Corpuscular Hemoglobin 28 pg N 27-31 Mean Corpuscular HGB Conc 33 g/dL N 31-36 Red Cell Distribution Width 15 % N 10.5-15 Platelet Count 172 10^3/uL N 150-450 Mean Platelet Volume 9 um3 N 7.4-10.4 Abs Neutrophils 3.6 10^3/uL N 1.5-7.7 Abs Lymphocytes 1.2 10^3/uL N 1.0-4.8 Abs Monocytes 0.4 10^3/uL N 0-0.8 Abs Eosinophils 0.1 10^3/uL N 0-0.6 Abs Basophils 0.1 10^3/uL N 0-0.2 Abs Nucleated RBC 0 10^3/uL N Granulocyte % 67.3 % N 38-83 Lymphocyte % 22.9 % Low 25-47 Monocyte % 6.9 % N 1-9 Eosinophil % 1.9 % N 0-6 Basophil % 1.0 % N 0-2 Nucleated Red Blood Cells % 0 N Laboratory test 03/03/2016 [facility] B-Type Natriuretic 58 pg/mL N 26 finding [phone] Peptide BNP Inr/Protime 03/03/2016 [facility] Inr 0.90 N 0.89-6 [phone] Laboratory test 03/03/2016 [facility] Partial Thrombo 31.6 seconds N 26.0-3 finding [phone] Time PTT 6.3 D Dimer Quantitative < 200 ng/mL N Less Than 230 27 Lactic Acid 0.9 mmol/L N 0.5-2.0 28 Comp Metabolic Panel 03/03/2016 [facility] Sodium 137 mmol/L N 133- 145 [phone] Potassium 3.8 mmol/L N 3.5-5.0 Chloride 104 mmol/L N 101-111 Co2 Carbon Dioxide 26 mmol/L N 22-32 Anion Gap 7 mmol/L N 2-11 Glucose 80 mg/dL N 70-100 Blood Urea Nitrogen 10 mg/dL N 6-24 Creatinine 0.74 mg/dL N 0.51-0.95 BUN/Creatinine Ratio 13.5 N 8-20 Calcium 9.6 mg/dL N 8.6-10.3 Total Protein 7.1 g/dL N 6.4-8.9 Albumin 4.1 g/dL N 3.2-5.2 Globulin 3.0 g/dL N 2-4 Albumin/Globulin Ratio 1.4 N 1-3 Total Bilirubin 0.40 mg/dL N 0.2-1.0 Alkaline Phosphatase 80 U/L N 34-104 Alt 18 U/L N 7-52 Ast 21 U/L N 13-39 Egfr Non- 81.2 N >60 Egfr 104.4 N >60 29 Laboratory test finding 03/03/2016 [facility] Magnesium 2.0 mg/dL N 1.9-2.7 [phone] Lipase 33 U/L N 11.0-82.0 Creatine Kinase(CK) 67 U/L N 10-223 C Reactive Protein < 1.00 mg/L N < 5.00 30 Troponin-I (TnI) 0.00 ng/mL N <0.03 31 CKMB 03/03/2016 [facility] CKMB ng/mL 1.0 ng/mL N 0.6-6.3 [phone] Laboratory test 03/03/2016 [facility] TSH (Thyroid 1.08 mcIU/mL N 0.34-5.60 finding [phone] Stim Horm) Laboratory test 09/29/2015 [facility] TSH (Thyroid 1.13 ?IU/mL N 0.34 -5.60 finding [phone] Stim Horm) Free T4 (Free Thyroxine) 1.25 ng/dL High 0.61-1.12 T3 Free 2.80 pg/mL N 2.5-3.9 Laboratory test 09/23/2015 [facility] (HCG) Negative N Negative 32 finding [phone] Urine Urinalysis Profile 08/26/2015 [facility] Urine Color Straw N [phone] Urine Appearance Clear N Urine Specific [place] 1.006 Low 1.010-1.030 Urine pH 6.0 N 5-9 Urine Urobilinogen Negative N Negative Urine Ketones Negative N Negative Urine Protein Negative N Negative Urine Leukocytes Negative N Negative Urine Blood 1+ Abnormal Negative Urine Nitrite Negative N Negative Urine Bilirubin Negative N Negative Urine Glucose Negative N Negative Urine White Blood Cell Absent N Absent Urine Red Blood Cell Trace(0-2/hpf) N Absent Urine Bacteria Absent N Absent Urine Squamous Epithelial Cell Present Abnormal Absent Laboratory test 08/26/2015 [facility] C Reactive < 1.00 mg/L N < 5.00 33 finding [phone] Protein Comp Metabolic 08/26/2015 [facility] Sodium 137 mmol/L N 133-145 Panel [phone] Potassium 3.6 mmol/L N 3.5-5.0 Chloride 103 mmol/L N 101-111 Co2 Carbon Dioxide 28 mmol/L N 22-32 Anion Gap 6 mmol/L N 2-11 Glucose 85 mg/dL N 70-100 Blood Urea Nitrogen 7 mg/dL N 6-24 Creatinine 0.86 mg/dL N 0.51-0.95 BUN/Creatinine Ratio 8.1 N 8-20 Calcium 9.3 mg/dL N 8.6-10.3 Total Protein 6.9 g/dL N 6.4-8.9 Albumin 4.1 g/dL N 3.2-5.2 Globulin 2.8 g/dL N 2-4 Albumin/Globulin Ratio 1.5 N 1-3 Total Bilirubin 0.30 mg/dL N 0.2-1.0 Alkaline Phosphatase 86 U/L N 34-104 Alt 15 U/L N 7-52 Ast 20 U/L N 13-39 Egfr Non- 68.3 N >60 Egfr 87.8 N >60 34 Laboratory test 08/26/2015 [facility] Erythrocyte Sed 20 mm/Hr N 0- 30 finding [phone] Rate CBC Auto Diff 08/26/2015 [facility] White Blood Count 6.8 10^3/uL N 3.5-10.8 [phone] Red Blood Count 4.37 10^6/uL N 4.0-5.4 Hemoglobin 12.7 g/dL N 12.0-16.0 Hematocrit 38 % N 35-47 Mean Corpuscular Volume 86 fL N 80-97 Mean Corpuscular Hemoglobin 29 pg N 27-31 Mean Corpuscular HGB Conc 34 g/dL N 31-36 Red Cell Distribution Width 14 % N 10.5-15 Platelet Count 229 10^3/uL N 150-450 Mean Platelet Volume 9 um3 N 7.4-10.4 Abs Neutrophils 4.7 10^3/uL N 1.5-7.7 Abs Lymphocytes 1.1 10^3/uL N 1.0-4.8 Abs Monocytes 0.5 10^3/uL N 0-0.8 Abs Eosinophils 0.5 10^3/uL N 0-0.6 Abs Basophils 0.1 10^3/uL N 0-0.2 Abs Nucleated RBC 0 10^3/uL N Granulocyte % 68.5 % N 38-83 Lymphocyte % 15.4 % Low 25-47 Monocyte % 7.9 % N 1-9 Eosinophil % 6.7 % High 0-6 Basophil % 1.5 % N 0-2 Nucleated Red Blood Cells % 0 N Laboratory test 08/21/2015 [facility] C Difficile PCR SEE RESULT 35 finding [phone] BELOW Laboratory test 08/20/2015 [facility] Magnesium 1.7 mg/dL Low 1.9-2. finding [phone] Ferritin < 10.0 ng/mL Low 11-307 Iron (Fe) 48 g/dL Low 50-212 CBC Auto Diff 08/20/2015 [facility] White Blood Count 7.7 10^3/uL N 3.5-10.8 [phone] Red Blood Count 3.91 10^6/uL Low 4.0-5.4 Hemoglobin 11.4 g/dL Low 12.0-16.0 Hematocrit 34 % Low 35-47 Mean Corpuscular Volume 86 fL N 80-97 Mean Corpuscular Hemoglobin 29 pg N 27-31 Mean Corpuscular HGB Conc 34 g/dL N 31-36 Red Cell Distribution Width 14 % N 10.5-15 Platelet Count 185 10^3/uL N 150-450 Mean Platelet Volume 10 um3 N 7.4-10.4 Abs Neutrophils 6.1 10^3/uL N 1.5-7.7 Abs Lymphocytes 0.9 10^3/uL Low 1.0-4.8 Abs Monocytes 0.4 10^3/uL N 0-0.8 Abs Eosinophils 0.3 10^3/uL N 0-0.6 Abs Basophils 0 10^3/uL N 0-0.2 Abs Nucleated RBC 0 10^3/uL N Granulocyte % 78.5 % N 38-83 Lymphocyte % 11.9 % Low 25-47 Monocyte % 5.7 % N 1-9 Eosinophil % 3.4 % N 0-6 Basophil % 0.5 % N 0-2 Nucleated Red Blood Cells % 0 N Laboratory test finding 07/30/2015 [facility] Magnesium 1.7 mg/dL Low 1.9-2.7 [phone] Iron & Iron Binding 07/30/2015 [facility] Iron 68 g/dL N 50-212 Capacity [phone] Unsaturated Iron Binding 271 g/dL N Total Iron Binding Capacity 339 g/dL N 250-450 % Iron Saturation 20 % N 15-55 Laboratory test 07/30/2015 [facility] TSH (Thyroid 0.31 ?IU/mL Low 0.34-5.60 finding [phone] Stim Horm) Vitamin D Total 25(Oh) 28.6 ng/mL Low 30-50 Vitamin B12 813 pg/mL N 180-914 36 CBC Auto Diff 07/30/2015 [facility] White Blood Count 4.9 10^3/uL N 3.5-10.8 [phone] Red Blood Count 4.25 10^6/uL N 4.0-5.4 Hemoglobin 12.2 g/dL N 12.0-16.0 Hematocrit 37 % N 35-47 Mean Corpuscular Volume 86 fL N 80-97 Mean Corpuscular Hemoglobin 29 pg N 27-31 Mean Corpuscular HGB Conc 34 g/dL N 31-36 Red Cell Distribution Width 14 % N 10.5-15 Platelet Count 186 10^3/uL N 150-450 Mean Platelet Volume 10 um3 N 7.4-10.4 Abs Neutrophils 2.7 10^3/uL N 1.5-7.7 Abs Lymphocytes 1.4 10^3/uL N 1.0-4.8 Abs Monocytes 0.5 10^3/uL N 0-0.8 Abs Eosinophils 0.3 10^3/uL N 0-0.6 Abs Basophils 0.1 10^3/uL N 0-0.2 Abs Nucleated RBC 0 10^3/uL N Granulocyte % 54.2 % N 38-83 Lymphocyte % 28.2 % N 25-47 Monocyte % 9.9 % High 1-9 Eosinophil % 6.6 % High 0-6 Basophil % 1.1 % N 0-2 Nucleated Red Blood Cells % 0.1 N Laboratory test finding 07/30/2015 [facility] Ferritin < 10.0 ng/mL Low 11-307 [phone] Comp Metabolic Panel 07/30/2015 [facility] Sodium 138 mmol/L N 133- 145 [phone] Potassium 3.6 mmol/L N 3.5-5.0 Chloride 104 mmol/L N 101-111 Co2 Carbon Dioxide 28 mmol/L N 22-32 Anion Gap 6 mmol/L N 2-11 Glucose 95 mg/dL N 70-100 Blood Urea Nitrogen 12 mg/dL N 6-24 Creatinine 0.80 mg/dL N 0.51-0.95 BUN/Creatinine Ratio 15.0 N 8-20 Calcium 9.2 mg/dL N 8.6-10.3 Total Protein 6.2 g/dL Low 6.4-8.9 Albumin 3.8 g/dL N 3.2-5.2 Globulin 2.4 g/dL N 2-4 Albumin/Globulin Ratio 1.6 N 1-3 Total Bilirubin 0.30 mg/dL N 0.2-1.0 Alkaline Phosphatase 82 U/L N 34-104 Alt 17 U/L N 7-52 Ast 19 U/L N 13-39 Egfr Non- 74.2 N >60 Egfr 95.4 N >60 37 Laboratory test 07/14/2015 In House Hemoglobin 11.6 38 finding CBC Auto Diff 10/22/2014 [facility] White Blood Count 4.8 10^3/uL N 4.8-10. [phone] Red Blood Count 3.93 10^6/uL Low 4.0-5.4 Hemoglobin 12.1 g/dL N 12.0-16.0 Hematocrit 36 % N 35-47 Mean Corpuscular Volume 91 fL N 80-97 Mean Corpuscular Hemoglobin 31 pg N 27-31 Mean Corpuscular HGB Conc 34 g/dL N 31-36 Red Cell Distribution Width 13 % N 10.5-15 Platelet Count 190 10^3/uL N 150-450 Mean Platelet Volume 10 um3 N 7.4-10.4 Abs Neutrophils 2.7 10^3/uL N 1.5-7.7 Abs Lymphocytes 1.3 10^3/uL N 1.0-4.8 Abs Monocytes 0.4 10^3/uL N 0-0.8 Abs Eosinophils 0.3 10^3/uL N 0-0.6 Abs Basophils 0 10^3/uL N 0-0.2 Abs Nucleated RBC 0.01 10^3/uL N Granulocyte % 56.5 % N 38-83 Lymphocyte % 27.8 % N 25-47 Monocyte % 9.2 % High 1-9 Eosinophil % 5.6 % N 0-6 Basophil % 0.9 % N 0-2 Nucleated Red Blood Cells % 0.1 N Comp Metabolic Panel 10/22/2014 [facility] Sodium 137 mmol/L N 133- 145 [phone] Potassium 4.1 mmol/L N 3.5-5.0 Chloride 106 mmol/L N 101-111 Co2 Carbon Dioxide 27 mmol/L N 22-32 Anion Gap 4 mmol/L N 2-11 Glucose 95 mg/dL N 70-100 Blood Urea Nitrogen 17 mg/dL N 6-24 Creatinine 0.77 mg/dL N 0.51-0.95 BUN/Creatinine Ratio 22.1 High 8-20 Calcium 8.7 mg/dL N 8.6-10.3 Total Protein 5.7 g/dL Low 6.4-8.9 Albumin 3.5 g/dL N 3.2-5.2 Globulin 2.2 g/dL N 2-4 Albumin/Globulin Ratio 1.6 N 1-3 Total Bilirubin 0.40 mg/dL N 0.2-1.0 Alkaline Phosphatase 68 U/L N 34-104 Alt 12 U/L N 7-52 Ast 17 U/L N 13-39 Egfr Non- 77.8 N >60 Egfr 100.1 N >60 39 Laboratory test 10/22/2014 [facility] TSH (Thyroid 0.37 ?IU/mL N 0.34 -5.60 finding [phone] Stim Horm) Erythrocyte Sed Rate 14 mm/Hr N 0-30 C Reactive Protein < 1.00 mg/L N < 5.00 40 Laboratory test finding 10/22/2014 [facility] Vitamin B12 631 pg/mL N 180-914 41 [phone] Iron & Iron Binding 10/22/2014 [facility] Iron 80 g/dL N 50-212 Capacity [phone] Unsaturated Iron Binding 253 g/dL N Total Iron Binding Capacity 333 g/dL N 250-450 % Iron Saturation 24 % N 15-55 Laboratory test 10/22/2014 [facility] Ferritin < 10.0 Low 11-307 finding [phone]/mL Ehrlichia Igg & 10/22/2014 [facility] Anaplasma <1:64 N <1:64 42 Igm Abs [phone] phagocytophila IgG titer Ehrlichia chaffeensis IgG AB <1:64 titer N <1:64 43 Laboratory test 10/22/2014 [facility] Babesiosis <1:64 titer N <1:64 44 finding [phone] Evaluation Lyme Western Blot 10/22/2014 [facility] Lyme Disease IgG Negative N Negative [phone] Ab WB Lyme Disease IgG Bands Present No bands detecte <SEE NOTE> kDa N 45 Lyme Disease IgM Ab WB Negative N Negative Lyme Disease IgM Bands Present No bands detecte <SEE NOTE> kDa N 46 Lyme Disease Interpretation See Comment N 47 Laboratory test 09/20/2014 [facility] Surgical Interface SEE RESULT 48 finding [phone] Order BELOW Occult Blood,Triple 07/17/2014 In House Misc x3 neg Culture Urine 05/11/2014 In House Colonies mixed 02/08 Inhouse Urine Micro Inhouse 05/11/2014 In House Ua WBC - Ua RBC - Ua Casts - Ua Epi 3-5 Ua Other few bacteria Ua Glucose - Ua Bilirubin - Ua Ketones - Ua Specific [place] 1.005 Ua Blood NH Tr Ua PH 5.0 Ua Protein - Ua Urobilinogen - Ua Nitrite - Ua Leukocytes - Laboratory test finding 03/25/2014 [facility] Free T4 1.46 ng/mL High 0.61-1.12 [phone] TSH (Thyroid Stimulating Horm) 1.01 IU/mL N 0.34-5.60 Iron & Iron Binding Capacity 03/25/2014 [facility] Iron 71 g/dL N 50-212 [phone] Unsaturated Iron Binding 226 g/dL N Total Iron Binding Capacity 297 g/dL N 250-450 % Iron Saturation 24 % N 15-55 Laboratory test finding 03/25/2014 [facility] Ferritin < 10.0 ng/mL Low 11-307 [phone] Occult Blood,Triple 02/12/2014 In House Misc neg x3 Culture Urine Inhouse 02/12/2014 In House Colonies no growth Urine Micro Inhouse 02/12/2014 In House Ua WBC - Ua RBC 0-2 Ua Casts - Ua Epi - Ua Other - Ua Glucose - Ua Bilirubin - Ua Ketones - Ua Specific [place] 1.015 Ua Blood tr Ua PH 6.0 Ua Protein - Ua Urobilinogen - Ua Nitrite - Ua Leukocytes - Xray 01/16/2014 [facility] Dexa Bone osteopenia Density Study One Or More Sites Axial Skeleton Laboratory test 01/09/2014 [facility] Free T4 1.25 ng/mL High 0.61- 1. finding [phone] TSH (Thyroid Stimulating Horm) 0.67 IU/mL N 0.34-5.60 49 CBC With Manual 01/09/2014 [facility] White Blood 6.0 10^3/uL N 4.8- 10.8 Diff [phone] Count Red Blood Count 4.23 10^6/uL N 4.0-5.4 Hemoglobin 12.7 g/dL N 12.0-16.0 Hematocrit 37 % N 35-47 Mean Corpuscular Volume 88 fL N 80-97 Mean Corpuscular Hemoglobin 30 pg N 27-31 Mean Corpuscular HGB Conc 34 g/dL N 31-36 Red Cell Distribution Width 13 % N 10.5-15 Platelet Count 200 10^3/uL N 150-450 Mean Platelet Volume 9 um3 N 7.4-10.4 Abs Neutrophils 4.3 10^3/uL N 1.5-7.7 Abs Lymphocytes 1.0 10^3/uL N 1.0-4.8 Abs Monocytes 0.4 10^3/uL N 0-0.8 Abs Eosinophils 0.2 10^3/uL N 0-0.6 Abs Basophils 0.1 10^3/uL N 0-0.2 Abs Nucleated RBC 0 10^3/uL N Neutrophil % 77 % N 38-83 Band % 1 % N 0-8 Lymphocytes % 15 % Low 25-47 Monocytes % 6 % N 0-13 Eosinophils % 1 % N 0-6 RBC Morphology Normal N Normal Laboratory test 01/09/2014 [facility] Erythrocyte Sed 14 mm/Hr N 0- 30 finding [phone] Rate Comp Metabolic 01/09/2014 [facility] Sodium 138 mmol/L N 133-145 Panel [phone] Potassium 4.1 mmol/L N 3.7-5.6 Chloride 105 mmol/L N 101-111 Co2 Carbon Dioxide 29 mmol/L N 22-32 Anion Gap 4 mmol/L N 2-11 Glucose 77 mg/dL N 70-100 Blood Urea Nitrogen 11 mg/dL N 6-24 Creatinine 0.74 mg/dL N 0.51-0.95 BUN/Creatinine Ratio 14.9 N 8-20 Calcium 9.0 mg/dL N 8.6-10.3 Total Protein 6.3 g/dL Low 6.4-8.9 Albumin 3.8 g/dL N 3.2-5.2 Globulin 2.5 g/dL N 2-4 Albumin/Globulin Ratio 1.5 N 1-3 Total Bilirubin 0.50 mg/dL N 0.2-1.0 Alkaline Phosphatase 82 U/L N 34-104 Alt 21 U/L N 7-52 Ast 22 U/L N 13-39 Egfr Non- 81.8 N >60 Egfr 105.2 N >60 50 Laboratory test 01/09/2014 [facility] Vitamin D 62 pg/mL N 18-78 51 finding [phone] 1,25-Dihydroxy Follicle Stimulating Hormone 15.7 IU/mL N 52 Ferritin < 10.0 ng/mL Low 11-307 Iron & Iron Binding Capacity 01/09/2014 [facility] Iron 105 g/dL N 50-212 [phone] Unsaturated Iron Binding 248 g/dL N Total Iron Binding Capacity 353 g/dL N 250-450 % Iron Saturation 30 % N 15-55 Urine Culture And 12/28/2013 [facility] Urine Culture (SEE NOTE) 53 Sensitivities [phone] Laboratory test 12/12/2012 [facility] Erythrocyte Sed 11 mm/Hr 0-30 finding [phone] Rate Stool Culture (SEE NOTE) 54 Fecal Lactoferrin (Stool WBC) (SEE NOTE) 55 CBC Auto Diff 12/12/2012 [facility] White Blood Count 5.3 10^3/uL 4.8-10.8 [phone] Red Blood Count 4.08 10^6/uL 4.0-5.4 Hemoglobin 12.7 g/dL 12.0-16.0 Hematocrit 37 % 35-47 Mean Corpuscular Volume 90 fL 80-97 Mean Corpuscular Hemoglobin 31 pg 27-31 Mean Corpuscular HGB Conc 35 g/dL 31-36 Red Cell Distribution Width 13 % 10.5-15 Platelet Count 170 10^3/uL 150-450 Mean Platelet Volume 10 um3 7.4-10.4 Abs Neutrophils 3.4 10^3/uL 1.5-7.7 Abs Lymphocytes 1.2 10^3/uL 1.0-4.8 Abs Monocytes 0.5 10^3/uL 0-0.8 Abs Eosinophils 0.2 10^3/uL 0-0.6 Abs Basophils 0.1 10^3/uL 0-0.2 Abs Nucleated RBC 0 10^3/uL Granulocyte % 64.0 % 38-83 Lymphocyte % 22.9 % Low 25-47 Monocyte % 9.0 % 1-9 Eosinophil % 2.9 % 0-6 Basophil % 1.2 % 0-2 Nucleated Red Blood Cells % 0 Ua Inhouse 12/05/2012 In House Ua Glucose - Ua Bilirubin - Ua Ketones - Ua Specific [place] 1.010 Ua Blood - Ua PH 6.0 Ua Protein - Ua Urobilinogen - Ua Nitrite - Ua Leukocytes - Laboratory test 12/05/2012 [facility] Genital Culture (SEE NOTE) 56 finding [phone] Manual Differential 06/28/2012 [facility] Neutrophil % 71 % 38-83 [phone] Band % 1 % 0-8 Lymphocytes % 20 % Low 25-47 Monocytes % 4 % 0-13 Eosinophils % 2 % 0-6 Basophil % 2 % 0-2 RBC Morphology Normal Normal Laboratory test 06/28/2012 [facility] TSH (Thyroid 0.76 miu/mL 0.34- 5.60 finding [phone] Stimulating Horm) CBC Auto Diff 06/28/2012 [facility] White Blood Count 5.4 10^3/uL 4.8-10.8 [phone] Red Blood Count 4.11 10^6/uL 4.0-5.4 Hemoglobin 13.3 g/dL 12.0-16.0 Hematocrit 38 % 35-47 Mean Corpuscular Volume 92 fL 80-97 Mean Corpuscular Hemoglobin 32 pg High 27-31 Mean Corpuscular HGB Conc 35 g/dL 31-36 Red Cell Distribution Width 11 % 10.5-15 Platelet Count 166 10^3/uL 150-450 Mean Platelet Volume 10 um3 7.4-10.4 Abs Neutrophils 4.2 10^3/uL 1.5-7.7 Abs Lymphocytes 0.8 10^3/uL Low 1.0-4.8 Abs Monocytes 0.2 10^3/uL 0-0.8 Abs Eosinophils 0.2 10^3/uL 0-0.6 Abs Basophils 0 10^3/uL 0-0.2 CBC No Diff 09/30/2011 [facility] White Blood Count 5.0 CUMM 4.8- 10.8 [phone] Red Cell Count 3.96 CUMM Low 4.2-5.4 Hemoglobin 12.9 g/dL 12.0-16.0 Hematocrit 37 % 35-47 Mean Corpuscular Volume 92 um3 79-97 Mean Corpuscular Hemoglob 32 pg High 27-31 Mean Corpuscular HGB Cone 35 g/dL 32-36 Redcell Distribution WDTH 12 % 10.5-15 Platelet Count 186 CUMM 150-450 Mean Platelet Volume 9.4 um3 7.4-10.4 Lipid Profile 09/30/2011 [facility] Triglyceride 40 mg/dL 40-200 (Trig/Chol/HDL) [phone] Cholesterol 153 mg/dL Less Than 200 57 High Density Lipoprotein 50 mg/dL 40-60 58 Cholesterol/HDL Ratio 3.06 AVERAGE 1-4.44 Low Density Lipoprotein 95 mg/dL Less Than 100 59 Laboratory test finding 09/30/2011 [facility] Glucose 81 mg/dL 70- 100 [phone] Thyroxine Free 1.16 ng/dL 0.61-1.24 Vitamin D, 25 09/30/2011 [facility] 25-Hydroxy Vitamin D2 <4.0 ng/mL () Hydroxy [phone] 25-Hydroxy Vitamin D3 36 ng/mL () 25-Hydroxy Vitamin D Total 36 ng/mL () 60 Laboratory test 09/30/2011 [facility] TSH 0.66 MIU/ML 0.34-5.60 finding [phone] Laboratory test 11/23/2010 [facility] Ferritin 26 NG/ML 11.0-307 finding [phone] CBC No Diff 11/23/2010 [facility] White Blood 5.4 CUMM 4.8-10.8 [phone] Count Red Cell Count 4.18 CUMM Low 4.2-5.4 Hemoglobin 13.4 g/dL 12.0-16.0 Hematocrit 39 % 35-47 Mean Corpuscular Volume 94 um3 79-97 Mean Corpuscular Hemoglob 32 pg High 27-31 Mean Corpuscular HGB Cone 34 g/dL 32-36 Redcell Distribution WDTH 13 % 10.5-15 Platelet Count 187 CUMM 150-450 Mean Platelet Volume 9.8 um3 7.4-10.4 Tranglutaminase 10/09/2010 [facility] Transglutaminase Iga <1.2 U/mL <4.0 Igg,Igm,Iga [phone] Transglutaminase Igg 1.4 U/mL <6.0 61 Manual Differential 09/27/2010 [facility] Polysegmented Neutrophil 61 % 38-83 [phone] Lymphocyte 31 % 25-47 Monocyte 5 % 0-13 Eosinophil 1 % 0-6 Basophil 1 % 0-2 Atypical Lymph 1 % 0-6 Absolute Neutrophil Count 3.1 Anisocytosis SLIGHT Ovalocytes FEW CBC Auto Diff 09/27/2010 [facility] White Blood Count 5.2 CUMM 4.8- 10.8 [phone] Red Cell Count 4.31 CUMM 4.2-5.4 Hemoglobin 13.3 g/dL 12.0-16.0 Hematocrit 40 % 35-47 Mean Corpuscular Volume 92 um3 79-97 Mean Corpuscular Hemoglob 31 pg 27-31 Mean Corpuscular HGB Cone 34 g/dL 32-36 Redcell Distribution WDTH 13 % 10.5-15 Platelet Count 170 CUMM 150-450 Mean Platelet Volume 10.1 um3 7.4-10.4 62 Laboratory test finding 09/27/2010 [facility] Ferritin 27 NG/ML 11.0 -307 [phone] Iron & Iron Binding 09/27/2010 [facility] Iron Total 130 g/dL 28- 170 Capacity [phone] Unsaturated Iron Binding 108 g/dL Total Iron Binding Capacity 238 g/dL Low 250-450 % Iron Saturation 55 % 15-55 Laboratory test 06/29/2010 In House Hemoglobin 10.4 finding Laboratory test 06/29/2010 [facility] TSH 1.25 MIU/ML 0.34-5. finding [phone] CBC With 06/29/2010 [facility] White Blood Count 5.1 CUMM 4.8-10. Electronic Diff [phone] Red Cell Count 3.85 CUMM Low 4.2-5.4 Hemoglobin 11.6 g/dL Low 12.0-16.0 Hematocrit 34 % Low 35-47 Mean Corpuscular Volume 89 um3 79-97 Mean Corpuscular Hemoglob 30 pg 27-31 Mean Corpuscular HGB Cone 34 g/dL 32-36 Redcell Distribution WDTH 12 % 10.5-15 Platelet Count 202 CUMM 150-450 Mean Platelet Volume 8.8 um3 7.4-10.4 Gran % 67.1 % 38-83 Lymph % 22.7 % Low 25-47 Mononuclear % 7.6 % 1-9 Eosinophil % 2.2 % 0-6 Basophil % 0.4 % 0-2 Abs Lymphs 1.2 1.0-4.8 Abs Mononuclear 0.4 0-0.8 Absolute Neutrophil Count 3.4 1.5-7.7 Abs Eosinophils 0.1 0-0.6 Abs Basophils 0 0-0.2 Comp Metabolic Panel 06/29/2010 [facility] Sodium 139 mmol/L 135- 145 [phone] Potassium 3.9 mmol/L 3.5-5.0 Chloride 107 mmol/L 101-111 Co2 (Carbon Dioxide) 27.0 mmol/L 22-32 Anion Gap 5.0 mmol/L 2-11 63 Glucose 89 mg/dL 70-100 BUN 8 mg/dL 6-24 Creatinine 0.70 mg/dL 0.50-1.40 One Over Creatinine 1.40 BUN/Creatinine Ratio 11.4 8-20 Calcium 9.0 mg/dL 8.1-9.9 Total Protein 6.6 GM/DL 6.2-8.1 Albumin 3.9 GM/DL 3.6-5.4 Globulin 2.7 GM/DL 2-4 Albumin/Globulin Ratio 1.4 1-3 Bilirubin Total 0.5 mg/dL 0.4-1.5 64 Alkaline Phosphatase 74 U/L 30-110 Alt (SGPT) 18 U/L 14-54 Ast (Sgot) 20 U/L 12-42 eGFR Non- 88.6 > 60 eGFR 113.9 > 60 65 Laboratory test finding 06/29/2010 [facility] Vitamin B12 378 pg/mL 180-914 [phone] Iron & Iron Binding 06/29/2010 [facility] Iron Total 34 g/dL 28- 170 Capacity [phone] Unsaturated Iron Binding 327 g/dL Total Iron Binding Capacity 361 g/dL 250-450 % Iron Saturation 9 % Low 15-55 Laboratory test 06/29/2010 [facility] Ferritin < 10 NG/ML Low 11.0- 307 finding [phone] Laboratory test 01/19/2010 [facility] TSH 0.33 Low 0.34-5.60 finding [phone] MIU/ML Laboratory test 12/19/2009 [facility] C Reactive < 0.5 Less Than 0.5 finding [phone] Protein mg/dL CBC With 12/19/2009 [facility] White Blood 6.5 CUMM 4.8-10.8 Electronic Diff [phone] Count Red Cell Count 4.16 CUMM Low 4.2-5.4 Hemoglobin 13.0 g/dL 12.0-16.0 Hematocrit 37 % 35-47 Mean Corpuscular Volume 89 um3 79-97 Mean Corpuscular Hemoglob 31 pg 27-31 Mean Corpuscular HGB Cone 35 g/dL 32-36 Redcell Distribution WDTH 12 % 10.5-15 Platelet Count 211 CUMM 150-450 Mean Platelet Volume 7.6 um3 7.4-10.4 Gran % 74.4 % 38-83 Lymph % 16.0 % Low 25-47 Mononuclear % 7.5 % 1-9 Eosinophil % 1.6 % 0-6 Basophil % 0.5 % 0-2 Abs Lymphs 1.0 1.0-4.8 Abs Mononuclear 0.5 0-0.8 Absolute Neutrophil Count 4.9 1.5-7.7 Abs Eosinophils 0.1 0-0.6 Abs Basophils 0 0-0.2 66 Laboratory test 12/19/2009 [facility] Erythrocyte Sed 14 MM/HR 0-30 finding [phone] Rate Laboratory test 09/03/2009 [facility] Shiga Toxin 1 NEGATIVE BY 67 , 68 finding [phone] And 2 (Ehec) IMMU <SEE NOTE> Stool Cult 09/03/2009 [facility] Stool Cult NF 69 [phone] Sensitivity Laboratory test 09/03/2009 [facility] C. Difficile TEST 70 finding [phone] Toxin A B LIMITATIONS <SEE NOTE> O P: Giardia/Crypto Screen Giardia and cryp <SEE NOTE> 71 Campylobacter Culture NG 72 Stool Specimen 09/03/2009 [facility] Stool Specimen GREEN 73 Description [phone] Description Surgical 09/03/2009 [facility] Surgical 74 Pathology [phone] Pathology --- <SEE NOTE> Stool For Polys 02/04/2009 [facility] Stool For WBCS NONE DETECTED Negative [phone] (Polys) Stool Color BROWN Stool Form FORMED Stool Consistency SEMI-HARD Laboratory test 02/04/2009 [facility] Campylobacter NF 75 finding [phone] Culture Stool Cult 02/04/2009 [facility] Stool Cult NF 76 [phone] Sensitivity Stool Specimen 02/04/2009 [facility] Stool Specimen S^SOFT^STC 77 Description [phone] Description ON Laboratory test 02/04/2009 [facility] Shiga Toxin 1 And 2 N^NEGATIVE 78 finding [phone] (Ehec) BY IM <SEE NOTE> Comp Metabolic 01/23/2009 [facility] Sodium 139 mmol/L 135-14 79 Panel [phone] Potassium 4.4 mmol/L 3.5-5.0 Chloride 105 mmol/L 101-111 Co2 (Carbon Dioxide) 26.0 mmol/L 22-32 Anion Gap 8.0 mmol/L 2-11 80 Glucose 70 mg/dL 70-100 81 BUN 6 mg/dL 6-24 Creatinine 0.80 mg/dL 0.50-1.40 One Over Creatinine 1.20 BUN/Creatinine Ratio 7.5 Low 8-20 Calcium 9.3 mg/dL 8.1-9.9 82 Total Protein 6.6 GM/DL 6.2-8.1 Albumin 3.7 GM/DL 3.6-5.4 Globulin 2.9 GM/DL 2-4 Albumin/Globulin Ratio 1.3 1-3 Bilirubin Total 0.7 mg/dL 0.4-1.5 83 Alkaline Phosphatase 84 U/L 30-110 Alt (SGPT) 19 U/L 14-54 Ast (Sgot) 20 U/L 12-42 eGFR Non- 81.0 > 60 eGFR 98.0 > 60 84 Laboratory test 01/23/2009 [facility] Erythrocyte Sed Rate 8 MM/HR 0 -15 finding [phone] TSH 0.43 MIU/ML 0.34-5.60 Laboratory test 01/15/2009 [facility] Glucose 78 mg/dL 70-100 85, 86 finding [phone] Lipid Profile 01/15/2009 [facility] Triglyceride 49 mg/dL 40-200 (Trig/Chol/HDL) [phone] Cholesterol 165 mg/dL Less Than 200 87 High Density Lipoprotein 46 mg/dL 40-60 88 Cholesterol/HDL Ratio 3.59 AVERAGE 1-4.44 Low Density Lipoprotein 109 mg/dL High Less Than 100 89 Laboratory test 07/18/2008 [facility] Cytology <SEE 90 finding [phone] NOTE> Laboratory test 07/18/2008 [facility] TSH 0.66 MIU/ML 0.34-5 finding [phone] .60 Vitamin B12 630 pg/mL 180-914 Laboratory test 05/06/2008 [facility] Clotest N^NEGATIVE^SOBEIDA finding [phone] H Pylori Ag Stool 12/26/2007 [facility] [place] Pylori NEGATIVE 91 [phone] Antigen- Stool CBC With 12/25/2007 [facility] White Blood 7.2 CUMM 4.8-10. Electronic Diff [phone] Count 8 Red Cell Count 4.08 CUMM Low 4.2-5.4 Hemoglobin 12.8 g/dL 12.0-16.0 Hematocrit 36 % 35-47 Mean Corpuscular Volume 89 um3 79-97 Mean Corpuscular Hemoglob 31 pg 27-31 Mean Corpuscular HGB Cone 35 g/dL 32-36 Redcell Distribution WDTH 13 % 10.5-15 Platelet Count 212 CUMM 150-450 Mean Platelet Volume 9.1 um3 7.4-10.4 Gran % 71.9 % 38-83 Lymph % 18.7 % Low 20-45 Mononuclear % 5.7 % 1-9 Eosinophil % 3.0 % 0-6 Basophil % 0.7 % 0-2 Abs Lymphs 1.3 1.0-4.8 Abs Mononuclear 0.4 0-0.8 Absolute Neutrophil Count 5.2 1.5-7.7 Abs Eosinophils 0.2 0-0.6 Abs Basophils 0.1 0-0.2 92 Laboratory test 12/25/2007 [facility] H Pylori Ag neg finding [phone] Stool Comp Metabolic Panel 12/25/2007 [facility] Sodium 138 mmol/L 135- 145 [phone] Potassium 4.8 mmol/L 3.5-5.0 Chloride 107 mmol/L 101-111 Co2 (Carbon Dioxide) 29.0 mmol/L 22-32 Anion Gap 2.0 mmol/L 2-11 93 Glucose 80 mg/dL 70-105 BUN 12 mg/dL 6-24 Creatinine 0.8 mg/dL 0.5-1.4 One Over Creatinine 1.25 BUN/Creatinine Ratio 15.0 8-20 Calcium 9.0 mg/dL 8.1-9.9 94 Total Protein 6.3 GM/DL 6.2-8.1 Albumin 3.6 GM/DL 3.6-5.4 Globulin 2.7 GM/DL 2-4 Albumin/Globulin Ratio 1.3 1-3 Bilirubin Total 0.7 mg/dL 0.4-1.5 Alkaline Phosphatase 80 U/L 30-110 Alt (SGPT) 20 U/L 14-54 Ast (Sgot) 20 U/L 12-42 Laboratory test 12/25/2007 [facility] TSH 0.99 MIU/ML 0.34-5.60 finding [phone] Lipid Profile 10/09/2007 [facility] Triglyceride 33 mg/dL Low 40-200 (Trig/Chol/HDL) [phone] Cholesterol 127 mg/dL Less Than 200 95 High Density Lipoprotein 42 mg/dL 40-60 96 Cholesterol/HDL Ratio 3.02 AVERAGE 1-4.44 Low Density Lipoprotein 78 mg/dL Less Than 100 97 Laboratory test finding 10/09/2007 [facility] Glucose 89 mg/dL 70- 105 [phone] Comp Metabolic Panel 10/09/2007 [facility] Sodium 137 mmol/L 135- 145 [phone] Potassium 3.8 mmol/L 3.5-5.0 Chloride 111 mmol/L 101-111 Co2 (Carbon Dioxide) 27.0 mmol/L 22-32 Anion Gap -1.0 mmol/L Low 2-11 98 BUN 10 mg/dL 6-24 Creatinine 0.8 mg/dL 0.5-1.4 One Over Creatinine 1.25 BUN/Creatinine Ratio 12.5 8-20 Calcium 8.5 mg/dL Low 8.7-10.2 Total Protein 5.9 GM/DL Low 6.2-8.1 Albumin 3.3 GM/DL Low 3.6-5.4 Globulin 2.6 GM/DL 2-4 Albumin/Globulin Ratio 1.3 1-3 Bilirubin Total 0.7 mg/dL 0.4-1.5 Alkaline Phosphatase 73 U/L 30-110 Alt (SGPT) 17 U/L 14-54 Ast (Sgot) 19 U/L 12-42 Laboratory test 10/09/2007 [facility] TSH 0.15 MIU/ML Low 0.34-5.60 finding [phone] Laboratory test 11/23/2006 [facility] TSH 0.59 MIU/ML 0.34-5.60 finding [phone] CMP 10/13/2006 [facility] One Over 1.42 [phone] Creatinine Anion Gap 8.0 mmol/L 2-11 99 Albumin/Globulin Ratio 1.0 1-3 Albumin 3.2 GM/DL Low 3.6-5.4 Alkaline Phosphatase 94 U/L 30-110 Alt (SGPT) 20 U/L 14-54 Ast (Sgot) 21 U/L 12-42 BUN 9 mg/dL 6-24 Calcium 9.1 mg/dL 8.7-10.2 Chloride 102 mmol/L 101-111 Co2 (Carbon Dioxide) 27.0 mmol/L 22-32 Globulin 3.1 GM/DL 2-4 Glucose 111 mg/dL High 70-105 Potassium 3.6 mmol/L 3.5-5.0 Sodium 137 mmol/L 135-145 Bilirubin Total 0.2 mg/dL Low 0.4-1.5 Total Protein 6.3 GM/DL 6.2-8.1 BUN/Creatinine Ratio 12.9 8-20 Creatinine 0.7 mg/dL 0.5-1.4 Laboratory test 10/13/2006 [facility] Troponin-I (TnI) 0.05 NG/ML 0- 0.06 100 finding [phone] CBC With Manual 10/13/2006 [facility] White Blood 10.7 CUMM 4.8- 10.8 Diff Stat [phone] Count Absolute Neutrophil Count 8.6 Atypical Lymph 3 % 0-6 Anisocytosis SLIGHT Band Neutrophil 3 % 0-8 Hematocrit 38 % 35-47 Hemoglobin 13.1 g/dL 12.0-16.0 Eosenophil 1 % 0-6 Lymphocyte 13 % 5-47 Mean Corpuscular HGB Cone 35 g/dL 32-36 Mean Corpuscular Hemoglob 32 pg High 27-31 Mean Corpuscular Volume 91 um3 79-97 Monocyte 2 % 0-13 Mean Platelet Volume 8.2 um3 7.4-10.4 Platelet Count 215 CUMM 150-450 Polychromasia SLIGHT Polysegmented Neutrophil 78 % 38-83 Red Cell Count 4.15 CUMM Low 4.2-5.4 Redcell Distribution WDTH 12 % 10.5-15 Laboratory test 09/30/2005 [facility] TSH 0.57 MIU/ML 0.34- 5.60 finding [address] [place] [address] [phone] Laboratory test 02/13/2004 [facility] TSH 1.11 MIU/ML 0.34-5.60 finding [phone] Comp Metabolic 03/15/2003 [facility] Anion Gap 4.0 mmol/L 2-11 101 Panel [phone] Albumin/Globulin Ratio 1.2 1-3 Albumin 3.3 GM/DL Low 3.6-5.4 BUN 9 mg/dL 6-24 Calcium 8.9 mg/dL 8.7-10.2 Chloride 105 mmol/L 101-111 Co2 (Carbon Dioxide) 30.0 mmol/L 22-32 Creatinine 1.0 mg/dL 0.5-1.4 Globulin 2.7 GM/DL 2-4 Glucose 85 mg/dL 70-105 Potassium 3.9 mmol/L 3.5-5.0 Sodium 139 mmol/L 135-145 Total Protein 6.0 GM/DL Low 6.2-8.1 BUN/Creatinine Ratio 9.0 8-20 Alkaline Phosphatase 76 U/L 30-110 Alt (SGPT) 16 U/L 14-54 Ast (Sgot) 20 U/L 12-42 Bilirubin Total 0.8 mg/dL 0.4-1.5 Laboratory test 03/15/2003 [facility] TSH 0.60 MIU/ML 0.34-5.60 finding [phone] Lipid Profile 03/15/2003 [facility] Cholesterol/H 2.79 AVERAGE 1- 4.44 (Trig/Chol/HDL) [phone] DL Ratio Cholesterol 134 mg/dL Less Than 200 102 Triglyceride 45 mg/dL 40-200 High Density Lipoprotein 48 mg/dL 40-60 Low Density Lipoprotein 77 mg/dL Less Than 100 103 1 Because ethnic data is not always readily available, this report includes an eGFR for both -Americans and non- Americans. The National Kidney Disease Education Program (NKDEP) does not endorse the use of the MDRD equation for patients that are not between the ages of 18 and 70, are , have extremes of body size, muscle mass, or nutritional status, or are non- or non-. According to the National Kidney Foundation, irrespective of diagnosis, the stage of the disease is based on the level of kidney function: Stage Description GFR(mL/min/1.73 m(2)) 1 Kidney damage with normal or decreased GFR 90 2 Kidney damage with mild decrease in GFR 60-89 3 Moderate decrease in GFR 30-59 4 Severe decrease in GFR 15-29 5 Kidney failure <15 (or dialysis) 2 FASTING 12 HOUR 3 FASTING 12 HOUR 4 FASTING 12 HOUR 5 FASTING 12 HOUR 6 Normal Range 180 to 914 Indeterminate Range 145 to 180 Deficient Range <145 7 FASTING 12 HOUR 8 FASTING 12 HOUR 9 Interpretation: Weak Positive (1.1-2.9) REFERENCE VALUE <=1.0 (Negative) 10 REFERENCE VALUE <20.0 (Negative) 11 Tests for antibodies to dsDNA and TONG antigens are not performed automatically unless the TERRI result is > or= 3.0 U. Studies performed at [facility] indicate that positive TERRI results <3.0 U are rarely accompanied by positive second order tests. Test Performed by: [facility] [address] [place] [address] 12 Desirable: <150 Borderline High: 150-199 High: 200-499 Very High: >500 13 Desirable: <200 Borderline High: 200-239 High: >239 14 Low: <40 Desirable: 40-60 High: >60 15 Desirable: <100 Near Optimal: 100-129 Borderline High: 130-159 High: 160-189 Very High: >189 16 Because ethnic data is not always readily available, this report includes an eGFR for both -Americans and non- Americans. The National Kidney Disease Education Program (NKDEP) does not endorse the use of the MDRD equation for patients that are not between the ages of 18 and 70, are , have extremes of body size, muscle mass, or nutritional status, or are non- or non-. According to the National Kidney Foundation, irrespective of diagnosis, the stage of the disease is based on the level of kidney function: Stage Description GFR(mL/min/1.73 m(2)) 1 Kidney damage with normal or decreased GFR 90 2 Kidney damage with mild decrease in GFR 60-89 3 Moderate decrease in GFR 30-59 4 Severe decrease in GFR 15-29 5 Kidney failure <15 (or dialysis) 17 FASTING 12 HOUR PT IS FASTING 18 Desirable <150 Borderline high 150-199 High 200-499 Very High >500 19 Desirable <200 Borderline high 200-239 High >239 20 Low <40 Desirable: 40-60 High: >60 21 Desirable: <100 mg/dL Near Optimal: 100-129 mg/dL Borderline High: 130-159 mg/dL High: 160-189 mg/dL Very High: >189 mg/dL 22 Because ethnic data is not always readily available, this report includes an eGFR for both -Americans and non- Americans. The National Kidney Disease Education Program (NKDEP) does not endorse the use of the MDRD equation for patients that are not between the ages of 18 and 70, are , have extremes of body size, muscle mass, or nutritional status, or are non- or non-. According to the National Kidney Foundation, irrespective of diagnosis, the stage of the disease is based on the level of kidney function: Stage Description GFR(mL/min/1.73 m(2)) 1 Kidney damage with normal or decreased GFR 90 2 Kidney damage with mild decrease in GFR 60-89 3 Moderate decrease in GFR 30-59 4 Severe decrease in GFR 15-29 5 Kidney failure <15 (or dialysis) 23 It is recognized that currently available assays for the detection of antibodies to HIV-1 and/or HIV-2 may not detect all infected individuals. HIV antibodies may be undetectable in some stages of the infection and in some clinical conditions. The performance of this assay has not been established for populations of infants or children. Assayed by Chemiluminescence Microparticle Immunoassay on the Siemens Advia Centaur CP. Values obtained with different methods or kits cannot be used interchangeably.The diagnostic specificity of the ADVIA Centaur 1/O/2 Enhanced assay in the low risk population was 99.90% (6052/6058) with a 95% confidence interval of 99.78 to 99.96%. 24 FASTING 12 HOUR 25 Because ethnic data is not always readily available, this report includes an eGFR for both -Americans and non- Americans. The National Kidney Disease Education Program (NKDEP) does not endorse the use of the MDRD equation for patients that are not between the ages of 18 and 70, are , have extremes of body size, muscle mass, or nutritional status, or are non- or non-. According to the National Kidney Foundation, irrespective of diagnosis, the stage of the disease is based on the level of kidney function: Stage Description GFR(mL/min/1.73 m(2)) 1 Kidney damage with normal or decreased GFR 90 2 Kidney damage with mild decrease in GFR 60-89 3 Moderate decrease in GFR 30-59 4 Severe decrease in GFR 15-29 5 Kidney failure <15 (or dialysis) 26 >100 to <200 pg/mL: likely compensated congestive heart failure (CHF) 200 to 400 pg/mL: likely moderate CHF >400 pg/mL: likely moderate to severe CHF 27 Please note: The following may produce a false positive D Dimer test: - Rheumatoid factor greater than 60 IU/ml - Plasma hemoglobin greater than 0.05 gm/dl - Bilirubin greater than 50 mg/dl - Lipids greater than 1000 mg/dl - FDP greater than 20 ug/ml 28 [facility] Severe Sepsis and Septic Shock Management Bundle Measure requires all lactic acids initially measuring >2.0 mmol/L be repeated. 29 Because ethnic data is not always readily available, this report includes an eGFR for both -Americans and non- Americans. The National Kidney Disease Education Program (NKDEP) does not endorse the use of the MDRD equation for patients that are not between the ages of 18 and 70, are , have extremes of body size, muscle mass, or nutritional status, or are non- or non-. According to the National Kidney Foundation, irrespective of diagnosis, the stage of the disease is based on the level of kidney function: Stage Description GFR(mL/min/1.73 m(2)) 1 Kidney damage with normal or decreased GFR 90 2 Kidney damage with mild decrease in GFR 60-89 3 Moderate decrease in GFR 30-59 4 Severe decrease in GFR 15-29 5 Kidney failure <15 (or dialysis) 30 Acute inflammation: >10.00 31 Reference Range and Interpretation: TnI (ng/mL) Interpretation Less Than 0.03 ng/mL Not supportive of diagnosis of CA 0.03 - 0.50 ng/mL Indeterminate: suggest serial studies if clinically indicated. Greater than 0.5 ng/mL Consistent with diagnosis of CA 32 If is still suspected, please repeat test after 48 to 72 hours. This test detects intact HCG only and is indicated for the early detection of . 33 Acute inflammation: >10.00 34 Because ethnic data is not always readily available, this report includes an eGFR for both -Americans and non- Americans. The National Kidney Disease Education Program (NKDEP) does not endorse the use of the MDRD equation for patients that are not between the ages of 18 and 70, are , have extremes of body size, muscle mass, or nutritional status, or are non- or non-. According to the National Kidney Foundation, irrespective of diagnosis, the stage of the disease is based on the level of kidney function: Stage Description GFR(mL/min/1.73 m(2)) 1 Kidney damage with normal or decreased GFR 90 2 Kidney damage with mild decrease in GFR 60-89 3 Moderate decrease in GFR 30-59 4 Severe decrease in GFR 15-29 5 Kidney failure <15 (or dialysis) 35 SEE RESULT BELOW Name: XIAO GORMAN : [address]: Juan Pablo Bolden MD Acct: [id number] Unit: [id number] AGE: 55 Location: [facility] Re08/21/15 SEX: F Status: REG REF SPEC: [id number] FADY: 08/21/15-0745 [facility] DR: Juan Pablo Bolden MD REQ: [id number] RECD: 08/21/15-1301 STATUS: COMP [facility] : Gabriel Becker DO _ SOURCE: STOOL SPDESC: ORDERED: C. diff PCR, Fecal Lactoferr, O P: Giar/Crypt COMMENTS: C. Difficile toxin testing is not performed on formed stool specimens. Test of cure on positive patients is not recommended. Verbal to RAMONJuan NEFF by [id number] at 1529 on 08/21/15. Results read back accurately. Procedure Result Reported Site Stool Specimen Description Final 08/21/15- 1504 ML Stool Color Greenish Brown Stool Form Semi-formed Stool Consistency Pasty C. difficile PCR Final 08/21/15- 1509 ML Test not performed Fecal Lactoferrin (Stool WBC) Final 08/21/15- 1511 ML Fecal Lactoferrin Positive by Immunoassay TEST LIMITATIONS: Assay detects elevated levels of lactoferrin released from fecal leukocytes as a marker of intestinal inflammation. The test may not be appropriate in immunocompromised persons. Fecal samples from breast fed infants should not be used with this assay. O P: Giardia/Cryptospor Screen Final 08/22/15- 1133 ML Organism 1 Neg Cryptosporidium/Giardia CONTINUED ON NEXT PAGE * ML=Testing performed at Main Lab DEPARTMENT OF PATHOLOGY, [address] [place] [address] Denny Holbrook M.D. Director [facility] # [id number] Patient: XIAO GORMAN [id number] (Continued) Specimen: [id number] Collected: 08/21/15 Received: 08/21/15 (Continued) Procedure Result Reported Site O P: Giardia/Cryptospor Screen Final (continued) 08/22/15- 1133 Giardia and cryptosporidium antigen testing performed by enzyme immunoassay. If patient is immunocompromised or has traveled to or is from a developing country, a full ova and parasite exam with microscopic (OPMIC) is recommended. All samples will be held one month in case full ova and parasite testing is requested. Contact the Microbiology Department at [phone]. TEST LIMITATIONS: As with all diagnostic procedures, the results obtained should be used in conjunction with other clinical information available the physician, including confirmation by another method. Negative results can occur in samples containing antigen below lower limits of detection of the assay. One negative specimen does not rule out the possibility of a parasitic infection. To improve detection it is recommended that three specimens be collected on separate days over a period of not more than seven days. The use of colonic washes, aspirates or other diluted sample types has not been established and could affect the performance of the assay. Stool samples contaminated with an oily or particulate base (eg. Barium, mineral oil etc.) could interfere with the test and are not recommended. * ML - MAIN LAB ([facility]) . END OF REPORT * ML=Testing performed at Main Lab DEPARTMENT OF PATHOLOGY, [address] [place] [address] Denny Holbrook M.D. Director [facility] # [id number] Normal Range 180 to 914 Indeterminate Range 145 to 180 Deficient Range <145 37 Because ethnic data is not always readily available, this report includes an eGFR for both -Americans and non- Americans. The National Kidney Disease Education Program (NKDEP) does not endorse the use of the MDRD equation for patients that are not between the ages of 18 and 70, are , have extremes of body size, muscle mass, or nutritional status, or are non- or non-. According to the National Kidney Foundation, irrespective of diagnosis, the stage of the disease is based on the level of kidney function: Stage Description GFR(mL/min/1.73 m(2)) 1 Kidney damage with normal or decreased GFR 90 2 Kidney damage with mild decrease in GFR 60-89 3 Moderate decrease in GFR 30-59 4 Severe decrease in GFR 15-29 5 Kidney failure <15 (or dialysis) 38 Dr. Rosita pinzon. 39 Because ethnic data is not always readily available, this report includes an eGFR for both -Americans and non- Americans. The National Kidney Disease Education Program (NKDEP) does not endorse the use of the MDRD equation for patients that are not between the ages of 18 and 70, are , have extremes of body size, muscle mass, or nutritional status, or are non- or non-. According to the National Kidney Foundation, irrespective of diagnosis, the stage of the disease is based on the level of kidney function: Stage Description GFR(mL/min/1.73 m(2)) 1 Kidney damage with normal or decreased GFR 90 2 Kidney damage with mild decrease in GFR 60-89 3 Moderate decrease in GFR 30-59 4 Severe decrease in GFR 15-29 5 Kidney failure <15 (or dialysis) 40 Acute inflammation: >10.00 41 Normal Range 180 to 914 Indeterminate Range 145 to 180 Deficient Range <145 42 ADDITIONAL INFORMATION Analyte Specific Reagent: This test was developed and its performance characteristics determined by [facility]. It has not been cleared or approved by the U.S. Food and Drug Administration. 43 ADDITIONAL INFORMATION Analyte Specific Reagent: This test was developed and its performance characteristics determined by [facility]. It has not been cleared or approved by the U.S. Food and Drug Administration. Test Performed by: [facility] - [address] [address] Employee Adviser: Leland Quinonez II, M.D., Ph.D. 44 ADDITIONAL INFORMATION Analyte Specific Reagent: This test was developed and its performance characteristics determined by [facility]. It has not been cleared or approved by the U.S. Food and Drug Administration. Test Performed by: [facility] - [address] [address] Employee Adviser: Leland Quinonez II, M.D., Ph.D. 45 No bands detected 46 No bands detected 47 Specific serologic response to B. burgdorferi infection is not detected, but cannot rule out early infection during which low or undetectable antibody levels to B. burgdorferi may be present. If clinically indicated, a new serum specimen should be submitted in 7-14 days. ADDITIONAL INFORMATION CDC criteria require >=5 bands for IgG or >=2 bands for IgM for the Immunoblot to be considered positive. Bands (e.g.,p41) may be detected in patients without Lyme disease, and patterns not meeting the CDC criteria should be interpreted with caution. Immunoblot should be ordered only on specimens that are positive or equivocal by a FDA-licensed Lyme disease antibody screening test (e.g., EIA). Test Performed by: [facility] - [address] [address] Employee Adviser: Leland Quinonez II, M.D., Ph.D. 48 SEE RESULT BELOW Name: XIAO GORMAN : [address]: Juan Pablo Bolden MD Acct: [id number] Unit: [id number] AGE: 54 Location: [facility] Re09/20/14 SEX: F Status: REG REF SPEC: [id number] FADY: 09/20/14-0 [facility] DR: Juan Pablo Bolden MD REQ: [id number] RECD: 09/20/14 STATUS: ZELDA LUTHER DR: Gloria Becker DO _ ORDERED: LEVEL IV/6 FINAL DIAGNOSIS 1. Colon, cecum, biopsy: -- Chronic active colitis, moderate. See comment. -- No dysplasia identified. 2. Colon, right, biopsy: -- Chronic active colitis, moderate. See comment. -- No dysplasia identified. 3. Colon, transverse, biopsy: -- Large intestinal mucosa with mild architectural distortion and lamina propria muciphages. -- No active colitis identified. -- No dysplasia identified. 4. Colon, descending, biopsy: -- Large intestinal mucosa with mild to moderate architectural distortion with lamina propria muciphages. -- No active colitis identified. -- No dysplasia identified. 5. Colon, sigmoid, biopsy: -- Large intestinal mucosa with mild architectural disorder and lamina propria muciphages. -- No active colitis identified. -- No dysplasia identified. 6. Colon, rectum, biopsy: -- Large intestinal mucosa with mild to moderate architectural disorder and lamina propria muciphages. -- No active colitis identified. -- No dysplasia identified. CONTINUED ON NEXT PAGE * ML=Testing performed at Main Lab DEPARTMENT OF PATHOLOGY, [address] [place] [address] Denny Holbrook M.D. Director [facility] # [id number] RUN DATE: 09/24/14 [facility] LAB LIVE PAGE 2 Patient: XIAO GORMAN [id number] (Continued) SPECIMEN COMMENTS (Continued) Comment: The cecum and right colon demonstrate classic features of chronic inflammatory bowel disease with significant architectural disorder with evidence of repair as well as active colitis with acute superficial and crypt inflammation with crypt abscess formation. No granulomata are noted. The additional biopsies all demonstrate some degree of glandular repair with background lamina propria muciphages indicating a significant resolving prior insult. Though, the more right sided and "patchy" distribution of the inflammatory process might suggest the possibility of regional enteritis, the histologic pattern as well as evidence of prior diffuse involvement favors ulcerative colitis. Correlation with clinical and colonoscopic findings is suggested. # CLINICAL HISTORY Ulcerative colitis, history of colon polyp for screening colonoscopy. POST-OPERATIVE DIAGNOSIS Screening colonoscopy into terminal ileum. Prep good. Two "patches" of colitis - cecum and right colon, otherwise normal, no polyp. Surveillance biopsies obtained. Conclusion/Plan: Patchy mild colitis, otherwise normal colonoscopy. GROSS DESCRIPTION 1. The specimen is received in formalin labeled, Biopsy Cecum, and consists of a 1.0 x 0.7 x 0.2 cm aggregate of multiple godinez irregular soft tissue fragments, which is submitted entirely in one cassette. 2. The specimen is received in formalin labeled, Biopsy Right Colon, and consists of a 0.7 x 0.5 x 0.3 cm aggregate of multiple godinez irregular to polypoid soft tissue fragments, which is submitted entirely in one cassette. 3. The specimen is received in formalin labeled, Biopsy Transverse Colon, and consists of a 0.7 x 0.5 x 0.2 cm aggregate of multiple godinez irregular soft tissue fragments, which is submitted entirely in one cassette. 4. The specimen is received in formalin labeled, Biopsy Descending Colon, and consists of a 0.8 x 0.4 x 0.2 cm aggregate of multiple godinez irregular soft tissue fragments, which is submitted entirely in one cassette. CONTINUED ON NEXT PAGE * ML=Testing performed at Main Lab DEPARTMENT OF PATHOLOGY, [address] [place] [address] Denny Holbrook M.D. Director [facility] # [id number] RUN DATE: 09/24/14 [facility] LAB LIVE PAGE 3 Patient: DEBBIEXIAO [id number] (Continued) GROSS DESCRIPTION (Continued) GROSS DESCRIPTION (Continued) 5. The specimen is received in formalin labeled, Biopsy Sigmoid Colon, and consists of a 0.7 x 0.5 x 0.1 cm aggregate of multiple godinez irregular soft tissue fragments , which is submitted entirely in one cassette. 6. The specimen is received in formalin labeled, Biopsy Rectum, and consists of a 0.6 x 0.5 x 0.2 cm aggregate of multiple godinez irregular soft tissue fragments, which is submitted entirely in one cassette. Signed (signature on file) Denny Holbrook MD [id number] END OF REPORT * ML=Testing performed at Main Lab DEPARTMENT OF PATHOLOGY, [facility] [employer] [place], [place] [address] Denny Holbrook M.D. Director [facility] # [id number] 49 --- 01/09/14 1410 --- TSH previously reported as: 0.60 IU/mL 50 Because ethnic data is not always readily available, this report includes an eGFR for both -Americans and non- Americans. The National Kidney Disease Education Program (NKDEP) does not endorse the use of the MDRD equation for patients that are not between the ages of 18 and 70, are , have extremes of body size, muscle mass, or nutritional status, or are non- or non-. According to the National Kidney Foundation, irrespective of diagnosis, the stage of the disease is based on the level of kidney function: Stage Description GFR(mL/min/1.73 m(2)) 1 Kidney damage with normal or decreased GFR 90 2 Kidney damage with mild decrease in GFR 60-89 3 Moderate decrease in GFR 30-59 4 Severe decrease in GFR 15-29 5 Kidney failure <15 (or dialysis) 51 Test Performed by: [address] [address] Employee Adviser: Shaw Ye III, M.D. 52 Normally menstruating females - Follicular phase 3 - 9 - Mid-cycle peak 4 - 23 - Luteal phase 1 - 6 Postmenopausal females 16 - 114 53 RUN DATE: 12/31/13 [facility] LAB LIVE PAGE 1 RUN TIME: 904 [facility] [employer] [place], [place] [address] Specimen Inquiry Name: XIAO GORMAN: [address]: Jason See MD Acct: [id number] Unit: [id number] AGE: 53 Location: [facility] Re12/28/13 SEX: F Status: DEP ER SPEC: [id number] FADY: 12/28/13-[address]: Jason See MD REQ: [id number] RECD: 12/29/13-120 STATUS: ANALIA LUTHER DR: Tessy QUESADA _ SOURCE: URINE SPDESC: ORDERED: Urine Culture Procedure Result Verified Site Urine Culture Final 12/31/13- 09 ML Organism 1 ESCHERICHIA COLI [place] Count 25-50,000 (Moderate) CFU/ML 1. ESCHERICHIA COLI M.I.C. RX --------- ------ Ampicillin <=2 S Cefazolin <=4 S Cefepime <=1 S Ceftriaxone <=1 S Ciprofloxacin <=0.25 S Gentamicin <=1 S Levofloxacin <=0.12 S Meropenem <=0.25 S Nitrofurantoin 64 I Tetracycline <=1 S Pipercillin/Tazobactam <=4 S Trimethoprim/Sulfamethoxazole <=20 S Amoxicillin/Clavulanic Acid <=2 S Aztreonam <=1 S Contact the Microbiology Department for any additional antibiotic reporting. END OF REPORT * ML=Testing performed at Main Lab DEPARTMENT OF PATHOLOGY, [facility] [employer] [place], [place] [address] Denny Holbrook M.D. Director [facility] # [id number] RUN DATE: 12/16/12 [facility] LAB LIVE PAGE 1 RUN TIME: 1001 [facility] [employer] [place], [place] [address] Specimen Inquiry Name: XIAO GORMAN : [address]: Tessy QUESADA Acct: [id number] Unit: [id number] AGE: 52 Location: [facility] Re12/12/12 SEX: F Status: REG REF SPEC: [id number] FADY: 12/12/12-5 [facility] DR: Tessy QUESADA REQ: [id number] RECD: 12/13/12 STATUS: COMP _ SOURCE: STOOL SPDESC: ORDERED: Stool Culture, Fecal Lactoferr, C. diff Amp DNA COMMENTS: C. Difficile toxin testing is not performed on formed stool specimens. Test of cure on positive patients is not recommended. Verbal to GLORIA RODRIGUES/MYKEL by [id number] at 0908 on 12/14/12. QUERIES: [employer] Number [id number] Procedure Result Verified Site Stool Culture Final 12/16/12- 1001 ML Result No enteric pathogens isolated Testing for Salmonella, Shigella, Aeromonas, Plesiomonas, Yersinia and Campylobacter are included in a Stool Culture. Vibrio spp not routinely tested for in a stool culture. If testing is desired, please request specifically when placing test order. Sensitivities not routinely performed on stool isolates, as antibiotics may prolong the carriage rate of bacteria. Please contact the microbiology lab if sensitivities are required. Stool Specimen Description Final 12/14/12- 0823 ML Stool Color Dark Brown Stool Form Formed Stool Consistency Firm Shiga Toxin 1 2 Final 12/15/12- 1423 ML Organism 1 Negative Shiga Toxin 1 2 CONTINUED ON NEXT PAGE * ML=Testing performed at Main Lab DEPARTMENT OF PATHOLOGY, [address], [place] [address] Denny Holbrook M.D. Director [facility] Permit #[id number] RUN DATE: 12/16/12 [facility] LAB LIVE PAGE 2 RUN TIME: 1001 [address] [place], [place] [address] Specimen Inquiry Patient: XIAO GORMAN [id number] (Continued) Specimen: [id number] Collected: 12/12/12 Received: 12/13/12-1844 (Continued) Procedure Result Verified Site Shiga Toxin 1 2 Final (continued) 12/15/12- 142 Immunochromatographic Assay C. difficile Amplified DNA Final 12/14/12- 822 ML Test not performed Fecal Lactoferrin (Stool WBC) Final 12/14/12- 1430 ML Fecal Lactoferrin Negative by Immunoassay END OF REPORT * ML=Testing performed at Main Lab DEPARTMENT OF PATHOLOGY, [facility] [employer] [place] [address] Denny Holbrook M.D. Director [facility] Permit #[id number] RUN DATE: 12/14/12 [facility] LAB LIVE PAGE 1 RUN TIME: 1430 [facility] [employer] [place], [place] [address] Specimen Inquiry Name: XIAO GORMAN : [address]: Tessy QUESADA Acct: [id number] Unit: [id number] AGE: 52 Location: [facility] Re12/12/12 SEX: F Status: REG REF SPEC: [id number] FADY: 12/12/12-1115 [facility] DR: Tessy QUESADA REQ: [id number] RECD: 12/13/12 STATUS: RES _ SOURCE: STOOL SPDESC: ORDERED: Stool Culture, Fecal Lactoferr, C. diff Amp DNA COMMENTS: C. Difficile toxin testing is not performed on formed stool specimens. Test of cure on positive patients is not recommended. Verbal to GLORIA RODRIGUES/MYKEL by [id number] at 0908 on 12/14/12. QUERIES: Med[employer] Number [id number] Procedure Result Verified Site Stool Culture Preliminary 12/14/12- 1321 ML <No reportable results for this procedure> Stool Specimen Description Final 12/14/12- 0823 ML Stool Color Dark Brown Stool Form Formed Stool Consistency Firm Shiga Toxin 1 2 PENDING C. difficile Amplified DNA Final 12/14/12- 0823 ML Test not performed Fecal Lactoferrin (Stool WBC) Final 12/14/12- 1430 ML Fecal Lactoferrin Negative by Immunoassay END OF REPORT * ML=Testing performed at Main Lab DEPARTMENT OF PATHOLOGY, [facility] [employer] [place], [place] [address] Denny Holbrook M.D. Director [facility] Permit #[id number] RUN DATE: 12/08/12 [facility] LAB LIVE PAGE 1 RUN TIME: 1112 [facility] [employer] [place], [place] [address] Specimen Inquiry Name: XIAO GORMAN : [address]: Tessy QUESADA Acct: [id number] Unit: [id number] AGE: 52 Location: [facility] Re12/05/12 SEX: F Status: REG REF SPEC: [id number] FADY: 12/05/12-[address]: Tessy QUESADA REQ: [id number] RECD: 12/06/123 STATUS: COMP _ SOURCE: VAGINAL SPDESC: ORDERED: Genital Culture QUERIES: Med[employer] Number [id number] Procedure Result Verified Site Genital Culture Final 12/08/12- 1112 ML Organism 1 NORMAL ROXIE Quantity 3+ END OF REPORT * ML=Testing performed at Main Lab DEPARTMENT OF PATHOLOGY, [address] [place] [address] Denny Holbrook M.D. Director [facility] Permit #[id number] CHOLESTEROL INTERPRETATION: Desirable: Less than 200 MG/DL Borderline-High Risk: 200-239 MG/DL High-Risk: 240 MG/DL and over 58 HDL INTERPRETATION: Undesirable: High Risk: Less than 40 MG/DL Desirable: Low Risk: Greater than 60 MG/DL 59 LDL INTERPRETATION: Low Risk Optimal Level: LDL Less than 100 MG/DL Near or Above Optimal: LDL 100-129 MG/DL Borderline High Risk: LDL 130-159 MG/DL High Risk: LDL 160-189 MG/DL Very High Risk: LDL Greater than 189 MG/DL 60 -- REFERENCE VALUE -- 25-HYDROXY D TOTAL (D2+D3) Optimum levels in the normal population are 25-80 Test Performed by: [facility] Dpt of Lab Med and Pathology [address] [place] [address] Employee Adviser: Shaw Ye III, M.D. 61 Test Performed by: [facility] Dpt of Lab Med and Pathology [address] [place] [address] Employee Adviser: Shaw Ye III, M.D. 62 Monocytosis % 63 Anion gap measurement may be of limited value in the presence of any alkalosis, especially in a combined acid base disorder. . 64 A metabolite of Naproxen, O-desmethylnaproxen, has been shown to interfere with the Jendrassik-Prospect method for measuring total bilirubin. Samples from patients who have taken Naproxen have shown spurious elevation in total bilirubin levels. 65 Because ethnic data is not always readily available, this report includes an eGFR for both -Americans and non- Americans. The National Kidney Disease Education Program (NKDEP) does not endorse the use of the MDRD equation for patients that are not between the ages of 18 and 70, are , have extremes of body size, muscle mass, or nutritional status, or are non- or non-. According to the National Kidney Foundation, irrespective of diagnosis, the stage of the disease is based on the level of kidney function: Stage Description GFR(mL/min/1.73 m(2)) 1 Kidney damage with normal or decreased GFR 90 2 Kidney damage with mild decrease in GFR 60-89 3 Moderate decrease in GFR 30-59 4 Severe decrease in GFR 15-29 5 Kidney failure <15 (or dialysis) 66 Lymphopenia % 67 COMMENTS: STOOL FROM COLONOSCOPY COMMENTS: STOOL 68 NEGATIVE BY IMMUNOCHROMATOGRAPHIC ASSAY NEGATIVE BY IMMUNOCHROMATOGRAPHIC ASSAY 69 NEGATIVE FOR THE ENTERIC PATHOGENS - SALMONELLA, SHIGELLA, AEROMONAS, PLESIOMONAS AND YERSINIA. VIBRIO AND E. COLI 0157 NOT ROUTINELY TESTED FOR IN A STOOL CULTURE. PLEASE SUBMIT SAMPLE WITH SPECIFIC REQUEST FOR DESIRED ORGANISM(S). 70 TEST LIMITATIONS: The performance of specimens from pediatric patients has not been evaluated. A positive test confirms the presence of toxins A and/or B only. A physician must use the test results in conjunction with other diagnostic procedures and the patient's clinical condition to establish a diagnosis of C.difficile-associated disease. Isolates of C. sordellii may react with this test due to immunological identitiy of the C. sordellii toxins. Two distinct groups have been identified that can harbor C. difficile asymptomatically at very high rates. Colonization rates of up to 50% and higher have been reported in infants and rates of up to 32% in cystic fibrosis patients. NEGATIVE BY IMMUNOASSAY 71 Giardia and cryptosporidium antigen testing performed by immunoassay. If patient is immunocompromised or has traveled to or is from a developing country, a full ova and parasite exam with microscopic (OPMIC) is recommended. All samples will be held one month in case full ova and parasite testing is requested. Contact the Microbiology Department at [phone]. TEST LIMITATIONS: As with all diagnostic procedures, the results obtained should be used in conjunction with other clinical information available the physician. Negative results can occur in samples containing antigen below lower limits of detection of the assay. The use of colonic washes, aspirates or other diluted sample types has not been established and could affect the performance of the assay. Stool samples contaminated with an oily or particulate base (eg. Barium, mineral oil etc.) could interfere with the test and are not recommended. NEGATIVE BY IMMUNOASSAY NEGATIVE BY IMMUNOASSAY 72 NO GROWTH OF CAMPYLOBACTER AFTER 48 HOURS 73 LIQUID NONFORMED 74 ---- RUN DATE: 09/05/09 [facility] NMI LIVE PAGE 1 RUN TIME: 1531 Specimen Inquiry RUN USER: INTERFACE -- Name: XIAO GORMAN Jamshid Status: REG REF Re09/03/09 Age/Sex: 49/F Unit#: [id number] Location: [facility] : 58 -- Specimen: [id number] ZELDA Spec Date: 09/03/[address]: Juan Pablo alvarez MD Spec Type: SURGICAL P Received: 09/04/09-1231 Copies to: Jose Scott MD SPECIMEN 1) BIOPSY SIGMOID COLON 2) BIOPSY RECTUM 3) POLYP HEPATIC FLEXURE 4) BIOPSY POLYP AT 30 CM HISTORY PRE-OP DIAGNOSIS: ? colitis POST-OP DIAGNOSIS: Two polyps removed; distal colitis (probable ulcerativ e colitis) CLINICAL INFORMATION: Change in bowel habits, abdominal pain, rectal blee ding GROSS DESCRIPTION 1) Specimen received in formalin labelled Xiao Gorman, Biopsy Sigmoid Colon, and consists of three fragments of godinez-yellow tissue measuring in aggregate 0.5 x 0.5 x 0.3 cm. Entirely, one cassette labelled one. 2) Specimen received in formalin labelled Xiao Gorman, Biopsy Rectum, and consists of three fragments of godinez-yellow tissue, each measuring 0.3 x 0.2 x 0.1 cm. Submitted entirely, one cassette labelled two. 3) Specimen received in formalin labelled Xiao Gorman, Biopsy Polyp at Hepatic Flexure, and consists of a polypoid fragment of dark brown tissue without a stalk measuring 0.5 x 0.5 x 0.4 cm. Submitted entirely as it is in one cassette labelled three. 4) Specimen received in formalin labelled Xiao Gorman, Biopsy Polyp at 30 cm., and consists of one fragment of godinez-yellow tissue measuring 0.4 x 0.2 x 0.2 cm. Submitted entirely, one cassette labelled four. DIAGNOSIS 1) Sigmoid colon, biopsy: A. Fragments of large bowel mucosa with acute cryptitis, reactive changes, and crypt abscesses. B. Granulomas are not seen. 2) Rectum, biopsy: A. Fragments of large bowel mucosa with evidence of acute cryptitis -- DEPARTMENT OF PATHOLOGY, [address] [place] [address] [facility] Permit #[id number] Reanna Yanez M.D. Helicopter Repairer Dir sury -- -- RUN DATE: 09/05/09 [facility] NMI LIVE PAGE 2 RUN TIME: 1531 Specimen Inquiry RUN USER: INTERFACE -- Name: XIAO GORMAN Status: REG REF Re09/03/09 Age/Sex: 49/F Unit#: [id number] Location: END : 58 -- -- CONTINUED -- DIAGNOSIS (Continued) and crypt abscesses with focal surface ulceration. B. Granulomas are not seen. 3) Hepatic flexure, biopsy: A. Tubular adenoma. B. No high grade dysplasia or malignancy. 4) Colon at 30 cm., biopsy: Polypoid fragment of large bowel with focal surface ulceration, acute cryptitis and crypt abscesses (see comment). COMMENT The features seen in these colon biopsies together with architectural changes suggest a chronic active colitis of some duration. Granulomas are not seen in any of these biopsies. In the correct clinical context these findings are compatible with ulcerative colitis. Signed Electronically by: RONDA FAUSTIN 09/05/09 1531 -- -- DEPARTMENT OF PATHOLOGY, [address] [place] [address] [facility] Permit #[id number] Denny Holbrook M.D. Director Ronda Faustin M.D. Assistant Dir guzmánor -- 75 NO GROWTH OF CAMPYLOBACTER AFTER 48 HOURS 76 NEGATIVE FOR THE ENTERIC PATHOGENS - SALMONELLA, SHIGELLA, AEROMONAS, PLESIOMONAS AND YERSINIA. VIBRIO AND E. COLI 0157 NOT ROUTINELY TESTED FOR IN A STOOL CULTURE. PLEASE SUBMIT SAMPLE WITH SPECIFIC REQUEST FOR DESIRED ORGANISM(S). 77 NF^NONFORMED^STFORM DARK BROWN^DARK BROWN^STOTH 78 N^NEGATIVE BY IMMUNOCHROMATOGRAPHIC ASSAY^ST2 79 another order was done and completes the stool testing. 80 Anion gap measurement may be of limited value in the presence of any alkalosis, especially in a combined acid base disorder. . 81 Note change in reference range as of 12/28/07. The change was based on recommendations from the [place] [employer]. 82 Please note change in reference range effective 07 . 83 A metabolite of Naproxen, O-desmethylnaproxen, has been shown to interfere with the Jendrassik-Linus method for measuring total bilirubin. Samples from patients who have taken Naproxen have shown spurious elevation in total bilirubin levels. 84 Because ethnic data is not always readily available, this report includes an eGFR for both -Americans and non- Americans. The National Kidney Disease Education Program (NKDEP) does not endorse the use of the MDRD equation for patients that are not between the ages of 18 and 70, are , have extremes of body size, muscle mass, or nutritional status, or are non- or non-. According to the National Kidney Foundation, irrespective of diagnosis, the stage of the disease is based on the level of kidney function: Stage Description GFR(mL/min/1.73 m(2)) 1 Kidney damage with normal or decreased GFR 90 2 Kidney damage with mild decrease in GFR 60-89 3 Moderate decrease in GFR 30-59 4 Severe decrease in GFR 15-29 5 Kidney failure <15 (or dialysis) 85 FASTING 86 Note change in reference range as of 12/28/07. The change was based on recommendations from the [place] [employer]. 87 CHOLESTEROL INTERPRETATION: Desirable: Less than 200 MG/DL Borderline-High Risk: 200-239 MG/DL High-Risk: 240 MG/DL and over 88 HDL INTERPRETATION: Undesirable: High Risk: Less than 40 MG/DL Desirable: Low Risk: Greater than 60 MG/DL 89 LDL INTERPRETATION: Low Risk Optimal Level: LDL Less than 100 MG/DL Near or Above Optimal: LDL 100-129 MG/DL Borderline High Risk: LDL 130-159 MG/DL High Risk: LDL 160-189 MG/DL Very High Risk: LDL Greater than 189 MG/DL 90 ---- RUN DATE: 07/19/08 [facility] NMI LIVE PAGE 1 RUN TIME: 1307 Specimen Inquiry RUN USER: INTERFACE -- Name: XIAO GORMAN Status: REG REF Re07/18/08 Age/Sex: 47/F Unit#: [id number] [facility] 58 -- Specimen: [id number] SOUT Spec Date: 07/18/[address]: Yulissa Lopez MD Spec Type: CYTOLOGY Received: 07/19/08 Copies to: SOURCE ECTOCERVICAL/ENDOCERVICAL Thin Prep with Reflex HPV Test PATIENT INFORMATION ACTUAL COLLECTION DATE: 07/18/08 ? No POST MENOPAUSAL? No HYSTERECTOMY? No PREVIOUS ABNORMAL PAP SMEARS No LAST MENSTRUAL PERIOD: 07/11/08 ADEQUACY OF SPECIMEN Satisfactory for evaluation * Transformation zone component identified * DIAGNOSIS NEGATIVE FOR INTRAEPITHELIAL LESION OR MALIGNANCY * This Pap test was evaluated with the assistance of the [employer] Pap Test Imaging System. The Pap Smear is a screening test designed to aid in the detection of premalign ant and malignant conditions of the uterine cervix. It is not a diagnostic procedure a nd should not be used as the sole means of detecting cervical cancer. Both false- positiv e and false-negative reports do occur. Depending on your risk status, a Pap smear jaja uld be obtained and evaluated every one to three years. Final Interpretation electronically signed by: Mark NOLASCO(ASC) 07/19/08 130 7 -- -- DEPARTMENT OF PATHOLOGY, [address] [place] [address] [facility] Permit #[id number] Denny Holbrook M.D. Director Ronda Faustin M.D. Helicopter Repairer Dir sury -- 91 Test performed by: [employer] [address] [place], [place] [address] N^NEGATIVE^HELAG 92 Lymphopenia % 93 Anion gap measurement may be of limited value in the presence of any alkalosis, especially in a combined acid base disorder. . 94 Please note change in reference range effective 07 . 95 CHOLESTEROL INTERPRETATION: Desirable: Less than 200 MG/DL Borderline-High Risk: 200-239 MG/DL High-Risk: 240 MG/DL and over 96 HDL INTERPRETATION: Undesirable: High Risk: Less than 40 MG/DL Desirable: Low Risk: Greater than 60 MG/DL 97 LDL INTERPRETATION: Low Risk Optimal Level: LDL Less than 100 MG/DL Near or Above Optimal: LDL 100-129 MG/DL Borderline High Risk: LDL 130-159 MG/DL High Risk: LDL 160-189 MG/DL Very High Risk: LDL Greater than 189 MG/DL 98 Anion gap measurement may be of limited value in the presence of any alkalosis, especially in a combined acid base disorder. . 99 Anion gap measurement may be of limited value in the presence of any alkalosis, especially in a combined acid base disorder. . 100 New Reference Range and Interpretation effective 02/09/02 TnI (ng/ml) INTERPRETATION <0.06 ng/ml NOT SUPPORTIVE OF DIAGNOSIS OF [place] 0.06 - 0.50 ng/ml INDETERMINATE: SUGGEST SERIAL STUDIES IF CLINICALLY INDICATED. > 0.5 ng/ml CONSISTENT WITH DIAGNOSIS OF [place] . 101 Anion gap measurement may be of limited value in the presence of any alkalosis, especially in a combined acid base disorder. . 102 Classification: Desirable . 103 CALCULATED LDL APPROXIMATES THE VALUE OF A DIRECT LDL MEASUREMENT. Classification: Optimal Level . Procedures Date Code Description Status 11/22/2018 63192 Dexa Bone Density Study One Or More Sites Axial Completed Skeleton 09/29/2018 41911855 Mammogram Completed 10/24/2017 42750 Omt 3 To 4 Body Regions Involved Completed 09/09/2017 96648 Destruction Of Skin Lesions Up To 14 Flat Completed Warts/Molluscum Contag 06/21/2016 00517 Dexa Bone Density Study One Or More Sites Axial Completed Skeleton 04/14/2016 82456 SC/Im Injections Completed 07/22/2015 36554 Omt 3 To 4 Body Regions Involved Completed 09/20/2014 16343085 Colonoscopy Completed 01/16/2014 43266 Injection Intralesional Up To 7 Completed 01/16/2014 52111 Dexa Bone Density Study One Or More Sites Axial Completed Skeleton 12/14/2013 74679 Injection Intralesional Up To 7 Completed 08/30/2013 36326 Injection Intralesional Up To 7 Completed 06/29/2010 46837 Oximetry, Single Completed 06/29/2010 09039 Electrocardiogram Complete Completed 03/31/2009 0 Payment Completed 01/23/2009 07818 Electrocardiogram Complete Completed 02/13/2004 95408 Omt 3 To 4 Body Regions Involved Completed Encounters Type Date Location Provider Dx Diagnosis Office Visit 11/22/2018 Main Office Gabriel Becker, Z13.820 Encounter for 2:15p D.O. screening for osteoporosis M54.5 Low back pain M25.562 Pain in left knee M79.652 Pain in left thigh R53.83 Other fatigue M81.0 Age-related osteoporosis w/o current pathological fracture E83.42 Hypomagnesemia D50.9 Iron deficiency anemia, unspecified F41.9 Anxiety disorder, unspecified E03.9 Hypothyroidism, unspecified Z68.28 Body mass index (BMI) 28.0-28.9, adult Office Visit 10/13/2018 1:45p Main Office Gabriel Becker D.O. R53.83 Other fatigue Z00.00 Encntr for general adult medical exam w/o abnormal findings G47.00 Insomnia, unspecified M54.5 Low back pain M25.562 Pain in left knee M79.652 Pain in left thigh E83.42 Hypomagnesemia D50.9 Iron deficiency anemia, unspecified K21.9 Gastro-esophageal reflux disease without esophagitis F41.9 Anxiety disorder, unspecified E03.9 Hypothyroidism, unspecified M25.561 Pain in right knee Z13.820 Encounter for screening for osteoporosis M79.7 Fibromyalgia Z68.28 Body mass index (BMI) 28.0-28.9, adult Office Visit 07/17/2018 4:20p Main Office Tessy Conte, J01.90 Acute sinusitis, P.A. unspecified G47.00 Insomnia, unspecified Office Visit 10/24/2017 10:45a Main Office Gabriel Becker D.O. M54.5 Low back pain M25.562 Pain in left knee M79.652 Pain in left thigh M99.04 Segmental and somatic dysfunction of sacral region M99.05 Segmental and somatic dysfunction of pelvic region M99.03 Segmental and somatic dysfunction of lumbar region F41.9 Anxiety disorder, unspecified G47.00 Insomnia, unspecified E83.42 Hypomagnesemia D50.9 Iron deficiency anemia, unspecified K21.9 Gastro-esophageal reflux disease without esophagitis Office Visit 09/29/2017 2:00p Main Office Gabriel Becker, Z00.00 Encntr for D.O. general adult medical exam w/o abnormal findings L82.1 Other seborrheic keratosis Z71.89 Other specified counseling F41.9 Anxiety disorder, unspecified H81.12 Benign paroxysmal vertigo, left ear G47.00 Insomnia, unspecified D50.9 Iron deficiency anemia, unspecified E83.42 Hypomagnesemia E03.9 Hypothyroidism, unspecified Office Visit 09/09/2017 4:30p Main Office Gabriel Becker, L82.1 Other seborrheic D.O. keratosis R10.10 Upper abdominal pain, unspecified K21.9 Gastro-esophageal reflux disease without esophagitis R23.4 Changes in skin texture R23.8 Other skin changes Office Visit 02/02/2017 4:40p Main Office Darcie Montana, F41.9 Anxiety disorder, PA unspecified H81.12 Benign paroxysmal vertigo, left ear N94.10 Unspecified dyspareunia G47.00 Insomnia, unspecified D50.9 Iron deficiency anemia, unspecified E83.42 Hypomagnesemia Office Visit 01/12/2017 11:00a Main Office Darcie Montana, F41.9 Anxiety disorder, PA unspecified H81.12 Benign paroxysmal vertigo, left ear Office Visit 01/11/2017 9:45a Main Office Gabriel Becker, H81.12 Benign paroxysmal D.O. vertigo, left ear H65.23 Chronic serous otitis media, bilateral G47.00 Insomnia, unspecified F41.9 Anxiety disorder, unspecified Office Visit 01/06/2017 11:25a Main Office Darcie Montana, H81.12 Benign paroxysmal PA vertigo, left ear Office Visit 12/29/2016 4:30p Main Office Gabriel Becker, G47.00 Insomnia , D.O. unspecified F41.9 Anxiety disorder, unspecified R11.0 Nausea N89.8 Other specified noninflammatory disorders of vagina Office Visit 06/21/2016 3:30p Main Office Gabriel Becker, Z13.820 Encounter for D.O. screening for osteoporosis Z00.00 Encntr for general adult medical exam w/o abnormal findings Z12.31 Encntr screen mammogram for malignant neoplasm of breast Office Visit 05/19/2016 3:30p Main Office Gabriel Becker, D.O. R11.0 Nausea R42 Dizziness and giddiness Office Visit 05/06/2016 1:55p Main Office Darcie Montana, L02.214 Cutaneous abscess PA of groin Z13.89 Encounter for screening for other disorder Office Visit 04/14/2016 4:45p Main Office Gabriel Becker, J20.9 Acute bronchitis, D.O. unspecified Office Visit 08/13/2015 4:45p Main Office Gabriel Becker, E83.42 Hypomagnesemia D.O. D50.9 Iron deficiency anemia, unspecified E03.9 Hypothyroidism, unspecified R51 Headache Office Visit 07/22/2015 4:30p Main Office Gabriel Becker, H81.21 Vestibular D.O. neuronitis, right ear M54.12 Radiculopathy, cervical region M99.08 Segmental and somatic dysfunction of rib cage M99.00 Segmental and somatic dysfunction of head region M99.02 Segmental and somatic dysfunction of thoracic region M99.01 Segmental and somatic dysfunction of cervical region Office Visit 07/14/2015 10:15a Main Office Gabriel Becker, D50.9 Iron deficiency D.O. anemia, unspecified J01.00 Acute maxillary sinusitis, unspecified Office Visit 10/18/2014 4:00p Main Office Gabriel Becker, 729.1 Myalgia & Myositis D.O. Unspec 780.79 Malaise And Fatigue Other 696.8 Psoriasis Other 780.52 Insomnia Unspecified 724.5 Backache Unspec 724.2 Lumbago 695.3 Rosacea 280.9 Iron Deficiency Anemia Unspec Office Visit 05/11/2014 10:45a Main Office Leland Heath M.D. 788.1 Dysuria 724.2 Lumbago 724.5 Backache Unspec Office Visit 02/12/2014 9:30a Main Office Yulissa Lopez MD 724.5 Backache Unspec 280.9 Iron Deficiency Anemia Unspec 780.52 Insomnia Unspecified 211.3 Benign Neoplasm Colon 696.8 Psoriasis Other 611.72 Lump Or Mass Breast 530.81 Esophageal Reflux 599.72 Microscopic Hematuria Office Visit 01/16/2014 3:00p Main Office Gabriel Becker D.O. 724.5 Backache Unspec 695.3 Rosacea 244.8 Hypothyroidism Other Spec 733.90 Bone & Cartilage Disorder Unspec Office Visit 01/09/2014 9:30a Main Office Yulissa Lopez MD V70.0 Examination General Medical Routine AT Health Care Facility 724.5 Backache Unspec 715.04 Osteoarthrosis Generalized Hand 696.8 Psoriasis Other 211.3 Benign Neoplasm Colon 780.52 Insomnia Unspecified 244.8 Hypothyroidism Other Spec 300.00 Anxiety State Unspec 695.3 Rosacea 611.72 Lump Or Mass Breast 530.81 Esophageal Reflux 626.9 Menstruation & Other Abnormal Bleeding Disorders Unspec 556.9 Ulcerative Colitis Unspec 719.41 Pain Joint Shoulder Region Office Visit 12/27/2013 4:30p Main Office Gabriel Becker D.O. 696.8 Psoriasis Other Office Visit 12/14/2013 9:15a Main Office Gabriel Becker D.O. 695.3 Rosacea 715.04 Osteoarthrosis Generalized Hand Office Visit 11/14/2013 3:00p Main Office Gabriel Becker D.O. 724.5 Backache Unspec 729.1 Myalgia & Myositis Unspec 724.2 Lumbago 696.8 Psoriasis Other 780.52 Insomnia Unspecified Office Visit 11/07/2013 11:30a Main Office Yulissa Lopez MD 785.6 Lymph Nodes Enlargement 611.72 Lump Or Mass Breast 724.5 Backache Unspec Office Visit 10/08/2013 4:45p Main Office Gabriel Becker D.O. 695.3 Rosacea 473.0 Sinusitis Chronic Maxillary Office Visit 08/30/2013 4:45p Main Office Gabriel Becker D.O. 729.82 Cramp Of Limb V58.69 Medications Director Of Social Media Marketing (Current) Use Encounter 695.2 Erythema Nodosum Office Visit 06/08/2013 4:00p Main Office Tessy Conte, 354.0 Carpal Tunnel P.A. Syndrome V58.69 Medications Director Of Social Media Marketing (Current) Use Encounter 723.1 Cervicalgia 724.5 Backache Unspec 789.06 Pain Abdominal Epigastric Office Visit 01/22/2013 4:00p Main Office Gabriel Becker, 789.9 Abdomen & Pelvis D.O. Symptoms Other 461.0 Sinusitis Acute Maxillary 381.01 Otitis Media Serous Acute Office Visit 12/28/2012 3:20p Main Office Tessy Conte V70.0 Examination General P.A. Medical Routine AT Health Care Facility 611.79 Breast Signs & Symptoms Other 789.09 Pain Abdominal Other Spec Site 723.1 Cervicalgia V72.31 Routine Research Chef Examination Office Visit 12/05/2012 4:00p Main Office Tessy Conte 789.09 Pain Abdominal P.A. Other Spec Site 616.10 Vaginitis & Vulvovaginitis Unspec Office Visit 11/23/2012 4:20p Main Office Ga Watson 723.1 Cervicalgia 715.90 Osteoarthrosis Unspec Genlzd Or Localized Site Unspec 556.9 Ulcerative Colitis Unspec 461.2 Sinusitis Acute Ethmoidal Office Visit 11/01/2012 4:00p Main Office Tessy Conte, 461.2 Sinusitis Acute P.A. Ethmoidal 379.90 Eye Disorder Unspec Office Visit 06/28/2012 1:40p Main Office Tessy Conte, 300.00 Anxiety State P.A. Unspec 309.0 Adjustment Disorder With Depression Office Visit 05/19/2012 10:20a Main Office Tessy Conte, 300.00 Anxiety State P.A. Unspec 309.0 Adjustment Disorder With Depression 724.5 Backache Unspec 784.0 Headache Office Visit 04/19/2012 11:40a Main Office Tessy Conte, 300.00 Anxiety State P.A. Unspec 309.0 Adjustment Disorder With Depression 724.5 Backache Unspec Office Visit 04/07/2012 4:00p Main Office Tessy Conte, 300.00 Anxiety State P.A. Unspec 309.0 Adjustment Disorder With Depression Office Visit 03/20/2012 1:20p Main Office Tessy Conte, 300.00 Anxiety State P.A. Unspec 309.0 Adjustment Disorder With Depression Office Visit 03/15/2012 11:00a Main Office Tessy Conte, 300.00 Anxiety State P.A. Unspec Office Visit 09/03/2011 2:30p Main Office Jose Scott, 724.2 Lumbago M.D. 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 724.5 Backache Unspec 729.2 Neuralgia Neuritis & Radiculitis Unspec 723.1 Cervicalgia Office Visit 04/08/2011 4:00p Main Office Tessy Conte P.A. 724.5 Backache Unspec 729.2 Neuralgia Neuritis & Radiculitis Unspec Office Visit 12/28/2010 3:00p Main Office Jose Scott M.D. 784.0 Headache 780.79 Malaise And Fatigue Other Office Visit 09/26/2010 9:15a Main Office Jose Scott, 280.9 Iron Deficiency M.D. Anemia Unspec 780.79 Malaise And Fatigue Other 784.0 Headache Office Visit 09/14/2010 3:00p Main Office Tessy Conte, 786.50 Pain Chest Unspec P.A. V76.19 Screening Breast Exam Malignant Neoplasms Other Office Visit 07/28/2010 3:00p Main Office Jose Scott, 280.9 Iron Deficiency M.D. Anemia Unspec 780.79 Malaise And Fatigue Other 556.9 Ulcerative Colitis Unspec 300.4 Dysthymic Disorder Office Visit 07/03/2010 2:00p Main Office Jose Scott M.D. 285.9 Anemia Unspec 780.79 Malaise And Fatigue Other 244.8 Hypothyroidism Other Spec 556.9 Ulcerative Colitis Unspec 300.4 Dysthymic Disorder Office Visit 06/29/2010 10:20a Main Office Tessy Conte, 780.79 Malaise And P.A. Fatigue Other 281.9 Anemia Deficiency Unspec 780.4 Dizziness & Giddiness 786.05 Shortness Of Breath 285.9 Anemia Unspec Office Visit 02/11/2010 2:30p Main Office Jose Scott, 723.1 Cervicalgia M.D. Office Visit 01/19/2010 1:30p Main Office Jose Scott, 300.4 Dysthymic Disorder M.DAbraham 780.52 Insomnia Unspecified 244.8 Hypothyroidism Other Spec 556.9 Ulcerative Colitis Unspec 723.1 Cervicalgia Office Visit 05/16/2009 4:45p Main Office Jose Scott, 300.4 Dysthymic Disorder M.DAbraham 780.52 Insomnia Unspecified Office Visit 01/23/2009 1:45p Main Office Yulissa Lopez V70.3 Examination Other Medical For Administrative Purpose 723.1 Cervicalgia 724.5 Backache Unspec 530.81 Esophageal Reflux 792.1 Stool Contents Abnormal 785.1 Palpitations V70.0 Examination General Medical Routine AT Health Care Facility 782.0 Skin Sensation Disturbance Office Visit 10/16/2008 4:00p Main Office Jose Scott M.D. 723.1 Cervicalgia 722.4 Intervertebral Disc Degeneration Cervical 723.1 Cervicalgia 722.4 Intervertebral Disc Degeneration Cervical 724.5 Backache Unspec 724.5 Backache Unspec Office Visit 08/21/2008 9:15a Main Office Jose Scott M.D. 723.1 Cervicalgia 724.5 Backache Unspec 722.4 Intervertebral Disc Degeneration Cervical 789.03 Pain Abdominal Right Lower Quadrant 530.81 Esophageal Reflux 789.04 Pain Abdominal Left Lower Quadrant 596.9 Bladder Disorders Unspec 792.1 Stool Contents Abnormal Office Visit 08/09/2008 3:30p Main Office Sarah Lindsay MD 564.1 Irritable Bowel Syndrome 564.00 Constipation Unspecified Office Visit 07/18/2008 9:15a Main Office Yulissa Lopez MD 723.1 Cervicalgia V72.31 Routine Research Chef Examination V72.31 Routine Research Chef Examination 244.8 Hypothyroidism Other Spec V76.2 Screening Malignant Neoplasm Cervix V76.2 Screening Malignant Neoplasm Cervix V72.31 Routine Research Chef Examination 244.8 Hypothyroidism Other Spec 244.8 Hypothyroidism Other Spec 530.81 Esophageal Reflux 530.81 Esophageal Reflux 530.81 Esophageal Reflux 782.0 Skin Sensation Disturbance 723.1 Cervicalgia 723.1 Cervicalgia Office Visit 03/04/2008 11:30a Main Office Jose Scott, 789.06 Pain Abdominal M.D. Epigastric 787.02 Nausea Alone 244.8 Hypothyroidism Other Spec V76.2 Screening Malignant Neoplasm Cervix Office Visit 12/25/2007 3:00p Main Office Jose Scott, 789.06 Pain Abdominal M.D. Epigastric 787.02 Nausea Alone 787.3 Flatulence Eructation & Gas Pain 244.8 Hypothyroidism Other Spec Office Visit 11/16/2007 4:00p Main Office Leland Hirsch 782.0 Skin Sensation Reanna Heath Disturbance 723.1 Cervicalgia 782.0 Skin Sensation Disturbance 723.1 Cervicalgia Office Visit 10/09/2007 5:00p Main Office Leland Hirsch 782.1 Rash & Other Reanna Heath Nonspec Skin Eruption 784.0 Headache Office Visit 05/10/2007 4:00p Main Office rohit 723.1 Cervicalgia 782.0 Skin Sensation Disturbance 724.5 Backache Unspec Office Visit 04/14/2007 1:00p Main Office rohit 723.1 Cervicalgia 782.0 Skin Sensation Disturbance Office Visit 12/01/2006 4:20p Main Office rohit 719.43 Pain Joint Forearm Office Visit 10/24/2006 4:20p Main Office rohit 719.43 Pain Joint Forearm Office Visit 10/14/2006 2:15p Main Office rohit 724.5 Backache Unspec 787.01 Nausea W/ Vomiting Office Visit 09/21/2006 3:00p Main Office klepack 719.43 Pain Joint Forearm 719.43 Pain Joint Forearm 719.43 Pain Joint Forearm Office Visit 11/30/2004 1:45p Main Office klepack 719.46 Pain Joint Lower Leg Office Visit 07/09/2004 10:00a Main Office klepack 461.1 Sinusitis Acute Frontal Office Visit 02/13/2004 1:30p Main Office klepack 244.8 Hypothyroidism Other Spec 724.2 Lumbago 739.3 Lesion Nonallopathic Lumbar Region Not Elsewhere Class 739.4 Lesion Nonallopathic Sacral Region Not Elsewhere Class 739.5 Lesion Nonallopathic Pelvic Region Not Elsewhere Class Office Visit 03/13/2003 3:30p Main Office klepack 788.41 Urinary Frequency 783.5 Polydipsia Plan of Treatment Future Appointment(s):04/27/2019 2:30 pm - Gabriel Becker D.O. at [id number]/22/2018 - Gabriel Becker D.O.Z13.820 Encounter for screening for ermasgpgoagiL28.5 Low back painM25.562 Pain in left kneeM79.652 Pain in left nueaiU70.83 Other oknqxurL86.0 Age-related osteoporosis without current pathological fractuNew Medication:Alendronate Sodium 35 mg - take 1 tablet every week 30 mins before meal with 8 oz of water. do not lie down for 30 minutes after taking.E83.42 BvshwjmkdlmsdnL90.9 Iron deficiency anemia, lebvgeyqkylR52.9 Anxiety disorder, unspecifiedComments:Decreased libido can be a side effect of escitalopram. Discussed importance of identifying breaks for arousal including pain and proceeding at a pace that she can tolerate. suggested new lubricants silicone bases or oil based like vegetable oil or coconut oil. Suggested massaging the painful areas at a pressure and in a way that is not painful.Follow up:6 months vsoanlwY54.9 Hypothyroidism, uqxpsqwgixdP34.28 Body mass index (BMI) 28.0-28.9, adult
--- OUTSIDE RECORDS SUMMARY | 2018-11-27 20:11 | XMS REPORT | Continuity of Care Document ---
:1960 External Reference #:[id number] Author Name Gabriel Becker D.O. Address [address] [place] [address] Care Team Providers Name Role Phone HCP given Primary Care Physician Unavailable Payers Date Identification Numbers Payment Provider Subscriber Policy Number: [id number] [employer] Xiao Gorman PayID: [id number] [address] [address] [place] [address] Problems Active Problems Provider Date Hypothyroidism Yulissa [...] the winter they rent a condo in [place] and sail there as well. 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 35mg Tablets meal with 8 oz of water. do not lie down for 30 minutes after taking. Zolpidem Tartrate take 1/2-1 tablet by 30tabs G47.00 [facility], 11/20/2018 mouth at bedtime if Gabriel D.O. 10mg Tablets needed for sleep Bupropion take 1 tablet by 90tabs F34.1 [facility], 10/30/2018 Hydrochloride ER mouth once daily Adrian Rios (XL) 150mg Tablets ER 24HR Pepto Bismol prn Unknown 10/12/2018 Estradiol intravaginally twice [place], 09/18/2018 10mcg weekly MD Gloria Tablets Clobetasol apply to affected [place], 07/13/2018 Propionate area twice a day x MD Gloria 0.05% 7 days and then Ointment daily x 7 days Escitalopram Oxalate take 1 tablet by 30tabs F41.9 [facility], 06/20/2018 mouth once daily Adrian Rios 10mg Tablets Triamcinolone apply to affected 5gm [facility], 06/30/2017 Acetonide areas in mouth Adrian Rios 0.1% Cream 3-4x/d as needed Flonase Allergy 2 sprays each 47.400ml H65.23 [facility], 01/11/2017 Relief nostril in the Adrian Rios 50mcg/Act morning Suspension Meclizine HCL 1 tab by mouth three 90tabs H81.12 Darcie [place], 01/06/2017 25mg times a day as [place] Tablets needed dizziness Ranitidine 150 1 cap by mouth twice 60tabs R11.0 [facility], 12/29/2016 Maximum Strength a day as needed Adrian Rios 150mg Tablets Calcium 1 daily Unknown 12/28/2016 500mg Colace 1 daily as needed Unknown 12/28/2016 100mg Capsules Carafate 10ml four times a 420ml [facility], 12/28/2016 1GM/10ML day as needed Adrian Rios Suspension Gas-X prn Unknown 12/28/2016 Benzoyl apply 1 application 46.600gm L71.8 [facility], 08/20/2016 Peroxide-Erythromyci topically to Adrian Rios n affected area 2 5-3% Gel times per day Magnesium 1 po twice daily Unknown 06/20/2016 100mg Tylenol 2 tablet by mouth Unknown 06/20/2016 325mg Tablets [id number] as needed for pain otc Ondansetron HCL 1 by mouth three 30tabs R11.0 [facility], 05/19/2016 4mg times a day as Gabriel, D.O. Tablets needed for nausea Levothyroxine Sodium Take 1 Tablet By 30tabs E03.8 [facility], 08/13/2015 Mouth Every Day Gabriel D.O. 100mcg Tablets Benzonatate 1 by mouth three 90caps [facility], 07/17/2015 200mg times a day as Gabriel, D.O. Capsules needed cough Soma 1 tab by mouth 90tabs M54.2 [facility], 12/28/2012 350mg Tablets t.i.d, as needed Gabriel, D.O. Lidoderm apply up to 3 30units M54.5 [facility], 09/03/2011 5% Patches patches to affected Reanna Garcia area for up to 12 hours a day as needed Diazepam 1 by mouth three 90tabs M54.89 [facility], 10/14/2006 5mg Tablets times a day as [...] ER take 1 tablet by 14tabs G47.00 [facility], 08/04/2018 - mouth daily at Gabriel D.OAbraham [...] 5 days Bactroban Apply 1 application 15gm [facility], 06/20/2017 - 2% Cream topically to affected Adrian Rios 07/20/2017 area 3 times per day for 10days for skin infection Tobramycin 1 drop three times a 5ml [facility], 04/09/2017 - 0.3% day for 7 days Adrian Rios 04/16/2017 Solution Diurex as directed, 4 times Unknown 02/01/2017 - 50-162.5mg a day as needed when 07/16/2018 Tablets pt feels ears fill w/fluid Chelated Iron 2-3 times a week when Unknown 02/01/2017 - 29mg shaky or weak 09/29/2017 Lexapro 1 by mouth every day 30tabs F41.9 [facility], 01/11/2017 - 10mg Tablets Adrian Rios 06/20/2018 Zolpidem Tartrate ER take 1 tablet by 14tabs G47.00 [facility], 12/29/2016 - mouth daily at Thomas iRosOAbraham 01/10/2017 6.25mg Tablets ER bedtime Premarin 0.5 grams 30gm N89.8 [facility], 12/29/2016 - 0.625mg/GM intravaginally Thomas RiosOAbraham 10/12/2018 Cream twice-weekly Lexapro 1 by mouth every day 30tabs F41.9 [facility], 12/29/2016 - 5mg Tablets Thomas RiosOAbraham 01/11/2017 Zolpidem Tartrate 1/2-1 tablet by mouth 30tabs G47.00 [facility], 11/24/2016 - at bedtime for sleep Adrian Rios 07/17/2018 10mg Tablets code a mdd 1 Meclizine HCL take 2 tablet by 27tabs R42 [facility], 05/19/2016 - 25mg mouth 3 times per day Thomas RiosOAbraham 06/20/2016 Tablets for 3 days then 1 by mouth 3 times a day for 3 days then stop Ventolin HFA inhale 2 puffs by 16gm J20.9 [facility], 04/14/2016 - mouth every 4 hours Mark Rios.O. 06/20/2016 108(90Base) mcg/Act as needed for Aerosol bronchospasm Tylenol Extra 2 by mouth every 8 Unknown 04/13/2016 - Strength hours as for pain 06/21/2016 500mg Tablets Fluticasone 2 sprays into each 48units J01.00 [facility], 09/12/2015 - Propionate nostril once-twice Gabriel, D.O. 10/13/2015 50mcg/Act daily for nasal Suspension congestion Azithromycin take 1 tablet by 3tabs J01.00 [facility], 08/26/2015 - 500mg mouth daily for 3 Gabriel D.O. 08/29/2015 Tablets days for infection Slow-Mag 1-2 by mouth at night 60tabs E83.42 [facility], 08/13/2015 - 71.5-119mg Gabriel D.O. 06/20/[address] Iron (Ferrous 1 by mouth once to 180tabs D50.9 [facility], 08/13/2015 - Gluconate) twice a day Mark Rios.O. 10/13/2015 256(28Fe) mg Tablets Vitamin D3 Maximum 1 by mouth every day 90caps [facility], 08/04/2015 - Strength or 7 tablets once a Mark Rios.O. 10/13/2018 5000Unit week Capsules Iron Supplement 1 by mouth twice a 180tabs [facility], 08/04/2015 - day Gabriel D.O. 11/04/2015 325(65Fe) mg Tablets Amoxicillin/Clavulan 1 by mouth twice a 20tabs 01.00 [facility], 07/14/2015 - ate Potassium day Gabriel D.O. 07/22/2015 875-125mg Tablets Flonase Allergy 2 sprays twice a day 47.400ml [address] [place] [address], 07/14/2015 - Relief until better. Mark Rios.O. 09/12/2015 50mcg/Act Suspension Triamcinolone apply to affected 5gm [facility], 05/20/2015 - Acetonide areas in mouth 3-4x/d Mark Rios.O. 06/20/2016 0.1% Paste as needed Levothyroxine Sodium 1 by mouth daily [facility] - Adrian Rios 08/13/2015 112mcg Tablets Zolpidem Tartrate 1 every night at 30tabs G47.00 [facility], 07/16/2014 - bedtime as needed Adrian Rios [...] one by mouth twice a 60caps M54.89 [facility], 01/09/2014 - 100mg day as needed pain Adrian Rios 10/11/2015 Capsules Physical And Massage 2x week indefinitely 724.5 Yulissa Lopez 01/09/2014 - Therapy 02/01/2017 Clobetasol use up to twice a day 118ml L45 [facility], 12/27/2013 - Propionate for 2 weeks for Adrian Rios 10/12/2018 0.05% psoriasis flares. Shampoo Bupropion HCL ER Take 1 Tablet By 90tabs F34.1 [facility], 12/21/2013 - (XL) Mouth Every Day Adrian Rios 10/30/2018 150mg Tablets ER 24HR Psoriasin use 1 - 4 times daily QS 696.8 [facility], 11/14/2013 - 3% Liquid until resovled then Adrian Rios 12/15/2013 decrease to 2-3 times/week Benzonatate 1 po prn cough q 8 30caps [facility], 10/09/2013 - 100mg hrs Adrian Rios 01/09/2014 Capsules Flonase inhale 2 sprays into 1units [facility], 10/09/2013 - 50mcg/Act nostril daily in each Adrian Rios 10/09/2014 Suspension nostril for nose inflammation Erythromycin/Benzoyl apply 1 application 46.600gm 695.3 [facility], 2013 - Peroxide topically to affected Thomas RiosO. 08/20/2016 5-3% Gel area 2 times per day Triamcinolone apply bid- three 60ml L71.8 [facility], 10/08/2013 - Acetonide times a day to GabrielMark.O. 02/01/2017 0.025% affected area Lotion Cream 5% cyclobenzaprine, 729.82 [facility], 08/30/2013 - 5% gabapentin. apply Mark Rios.O. 04/15/2015 to feet nightly to prevent cramps. # 30 grams 715.04 Medrol taper starting 6 21tabs 354.0 [facility], 06/08/2013 - 4mg Tablets tab,5 tabs...1 tab Mark Rios.O. 08/15/2013 qd. Take 5 ml by mouth 1bottle [facility], 01/26/2013 - 16.2mg/5ML 3 times per day Thomas RiosO. 08/16/2013 Elixir for acute small and large intestine inflammation Biaxin Take 1 tablet by 20tabs 461.0 [facility], 01/22/2013 - 500mg Tablets mouth every 12 Gabriel, D.O. 06/08/2013 hours for 10 days for sinus irritation and congestion Voltaren apply to painful 60gm 723.1 [facility] 01[facility]12[facility]2013 - 1% Gel areas prn [...] Rosita, 03/17/2012 - 10mg as needed sleep Gbariel D.Theodore 02/08/2014 Tablets Citalopram 1 tab qd [...] every 300.4 [facility], 07/02/2010 - morning Reanna Garcai 07/03/2010 150mg Tablets ER 12HR Ferrous Fumarate 324 1 tab po bid 180tabs 780.79 [facility]onia 06/29/2010 - Reanna Garcia 07/03/2010 324mg Tablets Dicyclomine HCL 1-2 po tid prn for 180caps 789.07 [facility], 06/26/2010 - 10mg abdominal pain Reanna Garcia 01/09/2014 Capsules Nortriptyline HCL 1 po qhs to start; 150caps 723.1 [place], 02/11/2010 - inc by 1 tab q3-7 [...] sickness Tessalon 1 PO tid Cough. 30units [facility] 09/18/2004 - 100mg Perles Nothing In Mouth 10/09/2007 After Medication. Guaifenesin 1 po q4h cough 30caps 300.00 rohit 07/09/2004 - 200mg Capsules 10/09/2007 Tylenol W/ Codeine #3 1 po tid cough 30tabs 300.00 [facility] 07/09/2004 - 10/09/2007 300mg;30 mg Tablets Work Note patient seen and 300.00 [facility] 07/09/2004 - treated here. 07/12/2004 suggest next 72 hours off. Pseudoephed[facility] 1 PO bid [facility] - 120mg 10/09/2007 Tablets Amoxicillin 1 po tid 30caps 300.00 [facility] 07/09/2004 - 500mg Capsules 11/30/2004 Levoxyl 1 po qd 90tabs 244.8 Lelnad AAbraham 03/13/2003 - 125mcg Tablets Reanna Heath [...] CPT Code Status Date Vaccine Lot # [id number] Refused 05/11/2014 Flu, Split Virus 3Yrs Vital [...] Mass Index) 24.9 kg/m2 Last Menstrual Period [id number] 12/05/2012 4:34pm BP Systolic 120 mmHg BP [...] Mass Index) 27.9 kg/m2 Last Menstrual Period [id number] 03/04/2008 11:38am BP Systolic 120 mmHg BP [...] H/L Range Note CBC Auto Diff 10/16/2018 [facility] White Blood 4.9 10^3/uL N 3.5- 10.8 [phone] Count Red Blood Count 4.37 10^6/uL N [...] Cells % 0.2 Comp Metabolic Panel 10/16/2018 [facility] Sodium 140 mmol/L N 135- 145 [phone] Potassium 4.3 mmol/L N 3.5-5.0 Chloride 104 [...] 88.8 >60 1 Laboratory test finding 10/16/2018 [facility] Magnesium 2.0 mg/dL N 1.9-2.7 2 [phone] Iron (Fe) 134 g/dL N 50-212 3 Ferritin 27.9 ng/mL N 11-307 4 TSH (Thyroid Stim Horm) 0.85 mcIU/mL N 0.34-5.60 5 Vitamin B12 605 pg/mL N 180-914 6 Erythrocyte Sed Rate 8 mm/Hr N 0-29 7 C Reactive Protein < 1.00 mg/L N <8.01 8 Connective Tissue 10/16/2018 [facility] Anti-Nuclear Antibody 2.1 U High 9 Panel [phone] Cyclic Citrullinated Peptide <15.6 U 10 Interpretation See Comment 11 Lipid Profile (Trig/Chol/HDL) 10/16/2018 [facility] Triglycerides 95 mg /dL 12 [phone] Cholesterol 207 mg/dL 13 HDL Cholesterol 61.3 mg/dL 14 LDL Cholesterol 127 mg/dL 15 Xray 12/01/2017 [facility] MRI Lumbar Spine lft [address] W/O Contrast [place], [place] [id number] [phone] CBC Auto Diff 07/26/2017 [facility] White Blood 4.1 10^3/uL N 3.5- 10.8 [phone] Count Red Blood Count 4.73 10^6/uL N [...] Cells % 0.1 Comp Metabolic Panel 07/26/2017 [facility] Sodium 136 mmol/L N 133- 145 [phone] Potassium 4.1 mmol/L N 3.5-5.0 Chloride 103 [...] 97.6 >60 16 Laboratory test finding 07/26/2017 [facility] Magnesium 1.9 mg/dL N 1.9-2.7 [phone] Iron (Fe) 114 g/dL N 50-212 Ferritin 26.6 ng/mL N 11-307 TSH (Thyroid Stim Horm) 1.43 mcIU/mL N 0.34-5.60 Laboratory test 07/28/2016 [facility] Vitamin D Total 64.7 ng/mL High 30-50 17 finding [phone] 25(Oh) Lipid Profile 07/28/2016 [facility] Triglycerides 86 mg/dL N 18 (Trig/Chol/HDL) [phone] Cholesterol 209 mg/dL N 19 HDL Cholesterol 65.3 mg/dL N 20 LDL Cholesterol 127 mg/dL N 21 Basic Metabolic Panel 07/28/2016 [facility] Sodium 139 mmol/L N 133- 145 [phone] Potassium 3.9 mmol/L N 3.5-5.0 Chloride 104 [...] N >60 22 HIV 1/2 AB 07/28/2016 [facility] HIV 1 2 Nonreactive N Nonreactive 23 Evaluation [phone] Antibody Laboratory 07/28/2016 [facility] Hepatitis C Nonreactive N Nonreactive 24 test finding [phone] Antibody Xray 06/21/2016 [facility] Dexa Bone osteopenia Density Study One Or More Sites Axial Skeleton Comp Metabolic 05/06/2016 [facility] Sodium 138 mmol/L N 133-145 Panel [phone] Potassium 4.1 mmol/L N 3.5-5.0 Chloride 102 [...] 78.3 N >60 25 Urinalysis Profile 03/03/2016 [facility] Urine Color Colorless N [phone] Urine Appearance Clear N Urine Specific [place] 1.004 Low 1.010-1.030 Urine pH 7.0 N [...] Present Abnormal Absent CBC Auto Diff 03/03/2016 [facility] White Blood Count 5.3 10^3/uL N 3.5-10.8 [phone] Red Blood Count 4.33 10^6/uL N 4.0-5.4 [...] Cells % 0 N Laboratory test 03/03/2016 [facility] B-Type Natriuretic 58 pg/mL N 26 finding [phone] Peptide BNP Inr/Protime 03/03/2016 [facility] Inr 0.90 N 0.89-6 [phone] .11 Laboratory test 03/03/2016 [facility] Partial Thrombo 31.6 seconds N 26.0-3 finding [phone] Time PTT 6.3 D Dimer Quantitative < 200 ng/mL N Less Than 230 27 Lactic Acid 0.9 mmol/L N 0.5-2.0 28 Comp Metabolic Panel 03/03/2016 [facility] Sodium 137 mmol/L N 133- 145 [phone] Potassium 3.8 mmol/L N 3.5-5.0 Chloride 104 [...] N >60 29 Laboratory test finding 03/03/2016 [facility] Magnesium 2.0 mg/dL N 1.9-2.7 [phone] Lipase 33 U/L N 11.0-82.0 Creatine Kinase(CK) 67 U/L N 10-223 C Reactive Protein < 1.00 mg/L N < 5.00 30 Troponin-I (TnI) 0.00 ng/mL N <0.03 31 CKMB 03/03/2016 [facility] CKMB ng/mL 1.0 ng/mL N 0.6-6.3 [phone] Laboratory test 03/03/2016 [facility] TSH (Thyroid 1.08 mcIU/mL N 0.34-5.60 finding [phone] Stim Horm) Laboratory test 09/29/2015 [facility] TSH (Thyroid 1.13 ?IU/mL N 0.34 -5.60 finding [phone] Stim Horm) Free T4 (Free Thyroxine) 1.25 ng/dL High 0.61-1.12 T3 Free 2.80 pg/mL N 2.5-3.9 Laboratory test 09/23/2015 [facility] (HCG) Negative N Negative 32 finding [phone] Urine Urinalysis Profile 08/26/2015 [facility] Urine Color Straw N [phone] Urine Appearance Clear N Urine Specific [place] 1.006 Low 1.010-1.030 Urine pH 6.0 N [...] Cell Present Abnormal Absent Laboratory test 08/26/2015 [facility] C Reactive < 1.00 mg/L N < 5.00 33 finding [phone] Protein Comp Metabolic 08/26/2015 [facility] Sodium 137 mmol/L N 133-145 Panel [phone] Potassium 3.6 mmol/L N 3.5-5.0 Chloride 103 [...] 87.8 N >60 34 Laboratory test 08/26/2015 [facility] Erythrocyte Sed 20 mm/Hr N 0- 30 finding [phone] Rate CBC Auto Diff 08/26/2015 [facility] White Blood Count 6.8 10^3/uL N 3.5-10.8 [phone] Red Blood Count 4.37 10^6/uL N 4.0-5.4 [...] Cells % 0 N Laboratory test 08/21/2015 [facility] C Difficile PCR SEE RESULT 35 finding [phone] BELOW Laboratory test 08/20/2015 [facility] Magnesium 1.7 mg/dL Low 1.9-2. finding [phone] Ferritin < 10.0 ng/mL Low 11-307 Iron (Fe) 48 g/dL Low 50-212 CBC Auto Diff 08/20/2015 [facility] White Blood Count 7.7 10^3/uL N 3.5-10.8 [phone] Red Blood Count 3.91 10^6/uL Low 4.0-5.4 [...] % 0 N Laboratory test finding 07/30/2015 [facility] Magnesium 1.7 mg/dL Low 1.9-2.7 [phone] Iron & Iron Binding 07/30/2015 [facility] Iron 68 g/dL N 50-212 Capacity [phone] Unsaturated Iron Binding 271 g/dL N Total Iron Binding Capacity 339 g/dL N 250-450 % Iron Saturation 20 % N 15-55 Laboratory test 07/30/2015 [facility] TSH (Thyroid 0.31 ?IU/mL Low 0.34-5.60 finding [phone] Stim Horm) Vitamin D Total 25(Oh) 28.6 ng/mL Low 30-50 Vitamin B12 813 pg/mL N 180-914 36 CBC Auto Diff 07/30/2015 [facility] White Blood Count 4.9 10^3/uL N 3.5-10.8 [phone] Red Blood Count 4.25 10^6/uL N 4.0-5.4 [...] % 0.1 N Laboratory test finding 07/30/2015 [facility] Ferritin < 10.0 ng/mL Low 11-307 [phone] Comp Metabolic Panel 07/30/2015 [facility] Sodium 138 mmol/L N 133- 145 [phone] Potassium 3.6 mmol/L N 3.5-5.0 Chloride 104 [...] 11.6 38 finding CBC Auto Diff 10/22/2014 [facility] White Blood Count 4.8 10^3/uL N 4.8-10. [phone] Red Blood Count 3.93 10^6/uL Low [...] % 0.1 N Comp Metabolic Panel 10/22/2014 [facility] Sodium 137 mmol/L N 133- 145 [phone] Potassium 4.1 mmol/L N 3.5-5.0 Chloride 106 [...] 100.1 N >60 39 Laboratory test 10/22/2014 [facility] TSH (Thyroid 0.37 ?IU/mL N 0.34 -5.60 finding [phone] Stim Horm) Erythrocyte Sed Rate 14 mm/Hr N 0-30 C Reactive Protein < 1.00 mg/L N < 5.00 40 Laboratory test finding 10/22/2014 [facility] Vitamin B12 631 pg/mL N 180-914 41 [phone] Iron & Iron Binding 10/22/2014 [facility] Iron 80 g/dL N 50-212 Capacity [phone] Unsaturated Iron Binding 253 g/dL N Total Iron Binding Capacity 333 g/dL N 250-450 % Iron Saturation 24 % N 15-55 Laboratory test 10/22/2014 [facility] Ferritin < 10.0 Low 11-307 finding [phone] ng/mL Ehrlichia Igg & 10/22/2014 [facility] Anaplasma <1:64 N <1:64 42 Igm Abs [phone] phagocytophila IgG titer Ehrlichia chaffeensis IgG AB <1:64 titer N <1:64 43 Laboratory test 10/22/2014 [facility] Babesiosis <1:64 titer N <1:64 44 finding [phone] Evaluation Lyme Western Blot 10/22/2014 [facility] Lyme Disease IgG Negative N Negative [phone] Ab WB Lyme Disease IgG Bands Present No bands detecte <SEE NOTE> kDa N 45 Lyme Disease IgM Ab WB Negative N Negative Lyme Disease IgM Bands Present No bands detecte <SEE NOTE> kDa N 46 Lyme Disease Interpretation See Comment N 47 Laboratory test 09/20/2014 [facility] Surgical Interface SEE RESULT 48 finding [phone] Order BELOW Occult Blood,Triple 07/17/2014 In House Misc x3 neg Culture Urine 05/11/2014 In House Colonies mixed 02/08 Inhouse Urine Micro Inhouse 05/11/2014 In House Ua WBC - Ua RBC - Ua Casts - Ua Epi 3-5 Ua Other few bacteria Ua Glucose - Ua Bilirubin - Ua Ketones - Ua Specific [place] 1.005 Ua Blood NH Tr Ua PH 5.0 Ua Protein - Ua Urobilinogen - Ua Nitrite - Ua Leukocytes - Laboratory test finding 03/25/2014 [facility] Free T4 1.46 ng/mL High 0.61-1.12 [phone] TSH (Thyroid Stimulating Horm) 1.01 IU/mL N 0.34-5.60 Iron & Iron Binding Capacity 03/25/2014 [facility] Iron 71 g/dL N 50-212 [phone] Unsaturated Iron Binding 226 g/dL N Total Iron Binding Capacity 297 g/dL N 250-450 % Iron Saturation 24 % N 15-55 Laboratory test finding 03/25/2014 [facility] Ferritin < 10.0 ng/mL Low 11-307 [phone] Occult Blood,Triple 02/12/2014 In House Misc neg x3 Culture Urine Inhouse 02/12/2014 In House Colonies no growth Urine Micro Inhouse 02/12/2014 In House Ua WBC - Ua RBC 0-2 Ua Casts - Ua Epi - Ua Other - Ua Glucose - Ua Bilirubin - Ua Ketones - Ua Specific [place] 1.015 Ua Blood tr Ua PH 6.0 Ua Protein - Ua Urobilinogen - Ua Nitrite - Ua Leukocytes - Xray 01/16/2014 [facility] Dexa Bone osteopenia Density Study One Or More Sites Axial Skeleton Laboratory test 01/09/2014 [facility] Free T4 1.25 ng/mL High 0.61- 1. finding [phone] TSH (Thyroid Stimulating Horm) 0.67 IU/mL N 0.34-5.60 49 CBC With Manual 01/09/2014 [facility] White Blood 6.0 10^3/uL N 4.8- 10.8 Diff [phone] Count Red Blood Count 4.23 10^6/uL N [...] Morphology Normal N Normal Laboratory test 01/09/2014 [facility] Erythrocyte Sed 14 mm/Hr N 0- 30 finding [phone] Rate Comp Metabolic 01/09/2014 [facility] Sodium 138 mmol/L N 133-145 Panel [phone] Potassium 4.1 mmol/L N 3.7-5.6 Chloride 105 [...] 105.2 N >60 50 Laboratory test 01/09/2014 [facility] Vitamin D 62 pg/mL N 18-78 51 finding [phone] 1,25-Dihydroxy Follicle Stimulating Hormone 15.7 IU/mL N 52 Ferritin < 10.0 ng/mL Low 11-307 Iron & Iron Binding Capacity 01/09/2014 [facility] Iron 105 g/dL N 50-212 [phone] Unsaturated Iron Binding 248 g/dL N Total Iron Binding Capacity 353 g/dL N 250-450 % Iron Saturation 30 % N 15-55 Urine Culture And 12/28/2013 [facility] Urine Culture (SEE NOTE) 53 Sensitivities [phone] Laboratory test 12/12/2012 [facility] Erythrocyte Sed 11 mm/Hr 0-30 finding [phone] Rate Stool Culture (SEE NOTE) 54 Fecal Lactoferrin (Stool WBC) (SEE NOTE) 55 CBC Auto Diff 12/12/2012 [facility] White Blood Count 5.3 10^3/uL 4.8-10.8 [phone] Red Blood Count 4.08 10^6/uL 4.0-5.4 Hemoglobin [...] Bilirubin - Ua Ketones - Ua Specific [place] 1.010 Ua Blood - Ua PH 6.0 Ua Protein - Ua Urobilinogen - Ua Nitrite - Ua Leukocytes - Laboratory test 12/05/2012 [facility] Genital Culture (SEE NOTE) 56 finding [phone] Manual Differential 06/28/2012 [facility] Neutrophil % 71 % 38-83 [phone] Band % 1 % 0-8 Lymphocytes % 20 % Low 25-47 Monocytes % 4 % 0-13 Eosinophils % 2 % 0-6 Basophil % 2 % 0-2 RBC Morphology Normal Normal Laboratory test 06/28/2012 [facility] TSH (Thyroid 0.76 miu/mL 0.34- 5.60 finding [phone] Stimulating Horm) CBC Auto Diff 06/28/2012 [facility] White Blood Count 5.4 10^3/uL 4.8-10.8 [phone] Red Blood Count 4.11 10^6/uL 4.0-5.4 Hemoglobin [...] 0 10^3/uL 0-0.2 CBC No Diff 09/30/2011 [facility] White Blood Count 5.0 CUMM 4.8- 10.8 [phone] Red Cell Count 3.96 CUMM Low 4.2-5.4 Hemoglobin 12.9 g/dL 12.0-16.0 Hematocrit 37 % 35-47 Mean Corpuscular Volume 92 um3 79-97 Mean Corpuscular Hemoglob 32 pg High 27-31 Mean Corpuscular HGB Cone 35 g/dL 32-36 Redcell Distribution WDTH 12 % 10.5-15 Platelet Count 186 CUMM 150-450 Mean Platelet Volume 9.4 um3 7.4-10.4 Lipid Profile 09/30/2011 [facility] Triglyceride 40 mg/dL 40-200 (Trig/Chol/HDL) [phone] Cholesterol 153 mg/dL Less Than 200 57 High Density Lipoprotein 50 mg/dL 40-60 58 Cholesterol/HDL Ratio 3.06 AVERAGE 1-4.44 Low Density Lipoprotein 95 mg/dL Less Than 100 59 Laboratory test finding 09/30/2011 [facility] Glucose 81 mg/dL 70- 100 [phone] Thyroxine Free 1.16 ng/dL 0.61-1.24 Vitamin D, 25 09/30/2011 [facility] 25-Hydroxy Vitamin D2 <4.0 ng/mL () Hydroxy [phone] 25-Hydroxy Vitamin D3 36 ng/mL () 25-Hydroxy Vitamin D Total 36 ng/mL () 60 Laboratory test 09/30/2011 [facility] TSH 0.66 MIU/ML 0.34-5.60 finding [phone] Laboratory test 11/23/2010 [facility] Ferritin 26 NG/ML 11.0-307 finding [phone] CBC No Diff 11/23/2010 [facility] White Blood 5.4 CUMM 4.8-10.8 [phone] Count Red Cell Count 4.18 CUMM Low 4.2-5.4 Hemoglobin 13.4 g/dL 12.0-16.0 Hematocrit 39 % 35-47 Mean Corpuscular Volume 94 um3 79-97 Mean Corpuscular Hemoglob 32 pg High 27-31 Mean Corpuscular HGB Cone 34 g/dL 32-36 Redcell Distribution WDTH 13 % 10.5-15 Platelet Count 187 CUMM 150-450 Mean Platelet Volume 9.8 um3 7.4-10.4 Tranglutaminase 10/09/2010 [facility] Transglutaminase Iga <1.2 U/mL <4.0 Igg,Igm,Iga [phone] Transglutaminase Igg 1.4 U/mL <6.0 61 Manual Differential 09/27/2010 [facility] Polysegmented Neutrophil 61 % 38-83 [phone] Lymphocyte 31 % 25-47 Monocyte 5 % 0-13 Eosinophil 1 % 0-6 Basophil 1 % 0-2 Atypical Lymph 1 % 0-6 Absolute Neutrophil Count 3.1 Anisocytosis SLIGHT Ovalocytes FEW CBC Auto Diff 09/27/2010 [facility] White Blood Count 5.2 CUMM 4.8- 10.8 [phone] Red Cell Count 4.31 CUMM 4.2-5.4 Hemoglobin 13.3 g/dL 12.0-16.0 Hematocrit 40 % 35-47 Mean Corpuscular Volume 92 um3 79-97 Mean Corpuscular Hemoglob 31 pg 27-31 Mean Corpuscular HGB Cone 34 g/dL 32-36 Redcell Distribution WDTH 13 % 10.5-15 Platelet Count 170 CUMM 150-450 Mean Platelet Volume 10.1 um3 7.4-10.4 62 Laboratory test finding 09/27/2010 [facility] Ferritin 27 NG/ML 11.0 -307 [phone] Iron & Iron Binding 09/27/2010 [facility] Iron Total 130 g/dL 28- 170 Capacity [phone] Unsaturated Iron Binding 108 g/dL Total Iron Binding Capacity 238 g/dL Low 250-450 % Iron Saturation 55 % 15-55 Laboratory test 06/29/2010 In House Hemoglobin 10.4 finding Laboratory test 06/29/2010 [facility] TSH 1.25 MIU/ML 0.34-5. finding [phone] CBC With 06/29/2010 [facility] White Blood Count 5.1 CUMM 4.8-10. Electronic Diff [phone] Red Cell Count 3.85 CUMM Low [...] Basophils 0 0-0.2 Comp Metabolic Panel 06/29/2010 [facility] Sodium 139 mmol/L 135- 145 [phone] Potassium 3.9 mmol/L 3.5-5.0 Chloride 107 mmol/L [...] > 60 65 Laboratory test finding 06/29/2010 [facility] Vitamin B12 378 pg/mL 180-914 [phone] Iron & Iron Binding 06/29/2010 [facility] Iron Total 34 g/dL 28- 170 Capacity [phone] Unsaturated Iron Binding 327 g/dL Total Iron Binding Capacity 361 g/dL 250-450 % Iron Saturation 9 % Low 15-55 Laboratory test 06/29/2010 [facility] Ferritin < 10 NG/ML Low 11.0- 307 finding [phone] Laboratory test 01/19/2010 [facility] TSH 0.33 Low 0.34-5.60 finding [phone] MIU/ML Laboratory test 12/19/2009 [facility] C Reactive < 0.5 Less Than 0.5 finding [phone] Protein mg/dL CBC With 12/19/2009 [facility] White Blood 6.5 CUMM 4.8-10.8 Electronic Diff [phone] Count Red Cell Count 4.16 CUMM Low [...] Basophils 0 0-0.2 66 Laboratory test 12/19/2009 [facility] Erythrocyte Sed 14 MM/HR 0-30 finding [phone] Rate Laboratory test 09/03/2009 [facility] Shiga Toxin 1 NEGATIVE BY 67 , 68 finding [phone] And 2 (Ehec) IMMU <SEE NOTE> Stool Cult 09/03/2009 [facility] Stool Cult NF 69 [phone] Sensitivity Laboratory test 09/03/2009 [facility] C. Difficile TEST 70 finding [phone] Toxin A B LIMITATIONS <SEE NOTE> O P: Giardia/Crypto Screen Giardia and cryp <SEE NOTE> 71 Campylobacter Culture NG 72 Stool Specimen 09/03/2009 [facility] Stool Specimen GREEN 73 Description [phone] Description Surgical 09/03/2009 [facility] Surgical 74 Pathology [phone] Pathology --- <SEE NOTE> Stool For Polys 02/04/2009 [facility] Stool For WBCS NONE DETECTED Negative [phone] (Polys) Stool Color BROWN Stool Form FORMED Stool Consistency SEMI-HARD Laboratory test 02/04/2009 [facility] Campylobacter NF 75 finding [phone] Culture Stool Cult 02/04/2009 [facility] Stool Cult NF 76 [phone] Sensitivity Stool Specimen 02/04/2009 [facility] Stool Specimen S^SOFT^STC 77 Description [phone] Description ON Laboratory test 02/04/2009 [facility] Shiga Toxin 1 And 2 N^NEGATIVE 78 finding [phone] (Ehec) BY IM <SEE NOTE> Comp Metabolic 01/23/2009 [facility] Sodium 139 mmol/L 135-14 79 Panel [phone] Potassium 4.4 mmol/L 3.5-5.0 Chloride 105 [...] 98.0 > 60 84 Laboratory test 01/23/2009 [facility] Erythrocyte Sed Rate 8 MM/HR 0 -15 finding [phone] TSH 0.43 MIU/ML 0.34-5.60 Laboratory test 01/15/2009 [facility] Glucose 78 mg/dL 70-100 85, 86 finding [phone] Lipid Profile 01/15/2009 [facility] Triglyceride 49 mg/dL 40-200 (Trig/Chol/HDL) [phone] Cholesterol 165 mg/dL Less Than 200 87 High Density Lipoprotein 46 mg/dL 40-60 88 Cholesterol/HDL Ratio 3.59 AVERAGE 1-4.44 Low Density Lipoprotein 109 mg/dL High Less Than 100 89 Laboratory test 07/18/2008 [facility] Cytology <SEE 90 finding [phone] NOTE> Laboratory test 07/18/2008 [facility] TSH 0.66 MIU/ML 0.34-5 finding [phone] .60 Vitamin B12 630 pg/mL 180-914 Laboratory test 05/06/2008 [facility] Clotest N^NEGATIVE^SOBEIDA finding [phone] H Pylori Ag Stool 12/26/2007 [facility] [place]ico Pylori NEGATIVE 91 [phone] Antigen- Stool CBC With 12/25/2007 [facility] White Blood 7.2 CUMM 4.8-10. Electronic Diff [phone] Count 8 Red Cell Count 4.08 CUMM [...] Basophils 0.1 0-0.2 92 Laboratory test 12/25/2007 [facility] H Pylori Ag neg finding [phone] Stool Comp Metabolic Panel 12/25/2007 [facility] Sodium 138 mmol/L 135- 145 [phone] Potassium 4.8 mmol/L 3.5-5.0 Chloride 107 mmol/L [...] (Sgot) 20 U/L 12-42 Laboratory test 12/25/2007 [facility] TSH 0.99 MIU/ML 0.34-5.60 finding [phone] Lipid Profile 10/09/2007 [facility] Triglyceride 33 mg/dL Low 40-200 (Trig/Chol/HDL) [phone] Cholesterol 127 mg/dL Less Than 200 95 High Density Lipoprotein 42 mg/dL 40-60 96 Cholesterol/HDL Ratio 3.02 AVERAGE 1-4.44 Low Density Lipoprotein 78 mg/dL Less Than 100 97 Laboratory test finding 10/09/2007 [facility] Glucose 89 mg/dL 70- 105 [phone] Comp Metabolic Panel 10/09/2007 [facility] Sodium 137 mmol/L 135- 145 [phone] Potassium 3.8 mmol/L 3.5-5.0 Chloride 111 mmol/L [...] (Sgot) 19 U/L 12-42 Laboratory test 10/09/2007 [facility] TSH 0.15 MIU/ML Low 0.34-5.60 finding [phone] Laboratory test 11/23/2006 [facility] TSH 0.59 MIU/ML 0.34-5.60 finding [phone] CMP 10/13/2006 [facility] One Over 1.42 [phone] Creatinine Anion Gap 8.0 mmol/L 2-11 99 [...] Creatinine 0.7 mg/dL 0.5-1.4 Laboratory test 10/13/2006 [facility] Troponin-I (TnI) 0.05 NG/ML 0- 0.06 100 finding [phone] CBC With Manual 10/13/2006 [facility] White Blood 10.7 CUMM 4.8- 10.8 Diff Stat [phone] Count Absolute Neutrophil Count 8.6 Atypical Lymph [...] WDTH 12 % 10.5-15 Laboratory test 09/30/2005 [facility] TSH 0.57 MIU/ML 0.34- 5.60 finding [address] [place] [address] [phone] Laboratory test 02/13/2004 [facility] TSH 1.11 MIU/ML 0.34-5.60 finding [phone] Comp Metabolic 03/15/2003 [facility] Anion Gap 4.0 mmol/L 2-11 101 Panel [phone] Albumin/Globulin Ratio 1.2 1-3 Albumin 3.3 GM/DL [...] Total 0.8 mg/dL 0.4-1.5 Laboratory test 03/15/2003 [facility] TSH 0.60 MIU/ML 0.34-5.60 finding [phone] Lipid Profile 03/15/2003 [facility] Cholesterol/H 2.79 AVERAGE 1- 4.44 (Trig/Chol/HDL) [phone] DL Ratio Cholesterol 134 mg/dL Less Than [...] > or= 3.0 U. Studies performed at [facility] indicate that positive TERRI results <3.0 U are rarely accompanied by positive second order tests. Test Performed by: [facility] - [facility] [employer] [address] [place] [address] 12 Desirable: <150 Borderline High: 150-199 High: [...] - FDP greater than 20 ug/ml 28 [facility] Severe Sepsis and Septic Shock Management [...] 0.03 ng/mL Not supportive of diagnosis of DC 0.03 - 0.50 ng/mL Indeterminate: suggest serial studies if clinically indicated. Greater than 0.5 ng/mL Consistent with diagnosis of DC 32 If is still suspected, please repeat [...] Attend Dr: Juan Pablo Bolden MD Acct: [id number] Unit: [id number] AGE: 55 Location: [facility] Re08/21/15 SEX: F Status: REG REF SPEC: [id number] FADY: 08/21/15-[address] [facility] [address]: Juan Pablo Bolden MD REQ: [id number] RECD: 08/21/15-1301 STATUS: COMP [facility] : Gabriel Becker DO _ SOURCE: STOOL SPDESC: ORDERED: C. diff PCR, Fecal Lactoferr, O P: Giar/Crypt COMMENTS: C. Difficile toxin testing is not performed on formed stool specimens. Test of cure on positive patients is not recommended. Verbal to RAMONJuan NEFF by [id number] at 1529 on 08/21/15. Results read back [...] performed at Main Lab DEPARTMENT OF PATHOLOGY, [address] [place] [address] Denny Holbrook M.D. Director [facility] # [id number] Patient: XIAO GORMAN [id number] (Continued) Specimen: [id number] Collected: 08/21/15 Received: 08/21/15 (Continued) Procedure Result [...] is requested. Contact the Microbiology Department at [phone]. TEST LIMITATIONS: As with all diagnostic procedures, [...] not recommended. * ML - MAIN LAB ([facility]) . END OF REPORT * ML=Testing performed at Main Lab DEPARTMENT OF PATHOLOGY, [address] [place] [address] Denny Holbrook M.D. Director [facility] # [id number] Normal Range 180 to 914 Indeterminate [...] developed and its performance characteristics determined by [facility]. It has not been cleared or approved by the U.S. Food and Drug Administration. 43 ADDITIONAL INFORMATION Analyte Specific Reagent: This test was developed and its performance characteristics determined by [facility]. It has not been cleared or approved by the U.S. Food and Drug Administration. Test Performed by: [facility] - [address] [address] Rock Loader: Leland Quinonez II, M.D., Ph.D. 44 ADDITIONAL INFORMATION Analyte Specific Reagent: This test was developed and its performance characteristics determined by [facility]. It has not been cleared or approved by the U.S. Food and Drug Administration. Test Performed by: [facility] - [address] [address] Rock Loader: Leland Quinonez II, M.D., Ph.D. 45 No [...] screening test (e.g., EIA). Test Performed by: [facility] - [address] [address] [employer]: Leland Quinonez II, M.D., Ph.D. 48 SEE RESULT BELOW Name: XIAO GORMAN : [address]: Juan Pablo Bolden MD Acct: [id number] Unit: [id number] AGE: 54 Location: [facility] Re09/20/14 SEX: F Status: REG REF SPEC: [id number] FADY: 09/20/14-[address] [facility] [address]: Juan Pablo Bolden MD REQ: [id number] RECD: 09/20/14 STATUS: ZELDA LUTHER DR: Gloria [...] performed at Main Lab DEPARTMENT OF PATHOLOGY, [address] [place] [address] Denny Holbrook M.D. Director [facility] # [id number] RUN DATE: 09/24/14 [facility] LAB LIVE PAGE 2 Patient: XIAO GORMAN [id number] (Continued) SPECIMEN COMMENTS (Continued) Comment: The cecum [...] performed at Main Lab DEPARTMENT OF PATHOLOGY, [address] [place] [address] Denny Holbrook M.D. Director [facility] # [id number] RUN DATE: 09/24/14 [facility] LAB LIVE PAGE 3 Patient: DEBBIEXIAO [id number] (Continued) GROSS DESCRIPTION (Continued) GROSS DESCRIPTION (Continued) [...] performed at Main Lab DEPARTMENT OF PATHOLOGY, [facility] [employer] [place], [place] [address] Denny Holbrook M.D. Director [facility] # [id number] 49 --- 01/09/14 1410 --- TSH previously [...] <15 (or dialysis) 51 Test Performed by: [address] [address] Rock [employer]er: Shaw Ye III, M.D. 52 Normally menstruating females - Follicular phase 3 - 9 - Mid-cycle peak 4 - 23 - Luteal phase 1 - 6 Postmenopausal females 16 - 114 53 RUN DATE: 12/31/13 [facility] LAB LIVE PAGE 1 RUN TIME: 904 [facility] [employer] [place], [place] [address] Specimen Inquiry Name: XIAO GORMAN: [address]: Jason See MD Acct: [id number] Unit: [id number] AGE: 53 Location: [facility] Re12/28/13 SEX: F Status: DEP ER SPEC: [id number] FADY: 12/28/13-[address]: Jason See MD REQ: [id number] RECD: 12/29/13-120 STATUS: ANALIA LUTHER DR: Tessy QUESADA _ SOURCE: URINE SPDESC: ORDERED: Urine Culture Procedure Result Verified Site Urine Culture Final 12/31/13- 09 ML Organism 1 ESCHERICHIA COLI [place] Count 25-50,000 (Moderate) CFU/ML 1. ESCHERICHIA COLI [...] performed at Main Lab DEPARTMENT OF PATHOLOGY, [facility] [employer] [place], [place] [address] Denny Holbrook M.D. Director [facility] # [id number] RUN DATE: 12/16/12 [facility] LAB LIVE PAGE 1 RUN TIME: 1001 [facility] [employer] [place], [place] [address] Specimen Inquiry Name: XIAO GORMAN : [address]: Tessy QUESADA Acct: [id number] Unit: [id number] AGE: 52 Location: [facility] Re12/12/12 SEX: F Status: REG REF SPEC: [id number] FADY: 12/12/12-[address] [facility] [address]: Tessy QUESADA REQ: [id number] RECD: 12/13/12 STATUS: COMP _ SOURCE: STOOL SPDESC: ORDERED: Stool Culture, Fecal Lactoferr, C. diff Amp DNA COMMENTS: C. Difficile toxin testing is not performed on formed stool specimens. Test of cure on positive patients is not recommended. Verbal to GLORIA RODRIGUES/MYKEL by [id number] at 0908 on 12/14/12. QUERIES: Medent Number [id number] Procedure Result Verified Site Stool Culture Final [...] at Main Lab DEPARTMENT OF PATHOLOGY, [address] [place], [place] [address] Denny Holbrook M.D. Director [facility] Permit #[id number] RUN DATE: 12/16/12 [facility] LAB LIVE PAGE 2 RUN TIME: 1001 [address] [place], [place] [address] Specimen Inquiry Patient: XIAO GORMAN [id number] (Continued) Specimen: [id number] Collected: 12/12/12 Received: 12/13/12-1844 (Continued) Procedure Result Verified Site Shiga Toxin 1 2 Final (continued) 12/15/12- 142 Immunochromatographic Assay C. difficile Amplified DNA Final 12/14/12- 822 ML Test not performed Fecal Lactoferrin (Stool WBC) Final 12/14/12- 1430 ML Fecal Lactoferrin Negative by Immunoassay END OF REPORT * ML=Testing performed at Main Lab DEPARTMENT OF PATHOLOGY, [facility] [employer] [place] [address] Denny Holbrook M.D. Director [facility] Permit #[id number] RUN DATE: 12/14/12 [facility] LAB LIVE PAGE 1 RUN TIME: 1430 [facility] [employer] [place], [place] [address] Specimen Inquiry Name: XIAO GORMAN : [address]: Tessy QUESADA Acct: [id number] Unit: [id number] AGE: 52 Location: [facility] Re12/12/12 SEX: F Status: REG REF SPEC: [id number] FADY: 12/12/12-[address] [facility] [address]: Tessy QUESADA REQ: [id number] RECD: 12/13/12 STATUS: RES _ SOURCE: STOOL SPDESC: ORDERED: Stool Culture, Fecal Lactoferr, C. diff Amp DNA COMMENTS: C. Difficile toxin testing is not performed on formed stool specimens. Test of cure on positive patients is not recommended. Verbal to GLORIA RODRIGUES/MYKEL by [id number] at 0908 on 12/14/12. QUERIES: Medent Number [id number] Procedure Result Verified Site Stool Culture Preliminary [...] performed at Main Lab DEPARTMENT OF PATHOLOGY, [facility] [employer] [place], [place] [address] Denny Holbrook M.D. Director [facility] Permit #[id number] RUN DATE: 12/08/12 [facility] LAB LIVE PAGE 1 RUN TIME: 1112 [facility] [employer] [place], [place] [address] Specimen Inquiry Name: XIAO GORMAN : [address]: Tessy QUESADA Acct: [id number] Unit: [id number] AGE: 52 Location: [facility] Re12/05/12 SEX: F Status: REG REF SPEC: [id number] FADY: 12/05/12-[address]: Tessy QUESADA REQ: [id number] RECD: 12/06/125 STATUS: COMP _ SOURCE: VAGINAL SPDESC: ORDERED: Genital Culture QUERIES: Medent Number [id number] Procedure Result Verified Site Genital Culture Final 12/08/12- 1112 ML Organism 1 NORMAL ROXIE Quantity 3+ END OF REPORT * ML=Testing performed at Main Lab DEPARTMENT OF PATHOLOGY, [address] [place] [address] eDnny Hlobrook M.D. Director [facility] Permit #[id number] 57 CHOLESTEROL INTERPRETATION: Desirable: Less than 200 [...] normal population are 25-80 Test Performed by: [facility] Dpt of Lab Med and Pathology [address] [place] [address] Rock Loader: Shaw Ye III, M.D. 61 Test Performed by: [facility] Dpt of Lab Med and Pathology [address] [place] [address] Rock Loader: Shaw Ye III, M.D. 62 Monocytosis % 63 Anion gap measurement may be of limited value in the presence of any alkalosis, especially in a combined acid base disorder. . 64 A metabolite of Naproxen, O-desmethylnaproxen, has been shown to interfere with the [place] method for measuring total bilirubin. Samples from [...] is requested. Contact the Microbiology Department at [phone]. TEST LIMITATIONS: As with all diagnostic procedures, [...] LIQUID NONFORMED 74 ---- RUN DATE: 09/05/09 [facility] NMI LIVE PAGE 1 RUN TIME: 1531 Specimen Inquiry RUN USER: INTERFACE -- Name: XIAO GORMAN Jamshid Status: REG REF Re09/03/09 Age/Sex: 49/F Unit#: [id number] Location: [facility] : 58 -- Specimen: [id number] Spec Date: 09/03/[address]: Juan [...] of acute cryptitis -- DEPARTMENT OF PATHOLOGY, [address] [place] [address] [facility] Permit #[id number] Reanna Yanez M.D. Bottle Packing Machine Cleaner Dir sury -- -- RUN DATE: 09/05/09 [facility] NMI LIVE PAGE 2 RUN TIME: 1531 Specimen Inquiry RUN USER: INTERFACE -- Name: XIAO GORMAN Status: REG REF Re09/03/09 Age/Sex: 49/F Unit#: [id number] Location: END : 58 -- -- CONTINUED [...] 09/05/09 1531 -- -- DEPARTMENT OF PATHOLOGY, [address] [place] [address] [facility] Permit #[id number] Denny Holbrook M.D. Director Ronda Faustin [...] change was based on recommendations from the [place] [employer]. 82 Please note change in [...] change was based on recommendations from the [place] [employer]. 87 CHOLESTEROL INTERPRETATION: Desirable: Less [...] 189 MG/DL 90 ---- RUN DATE: 07/19/08 [facility] NMI LIVE PAGE 1 RUN TIME: 1307 Specimen Inquiry RUN USER: INTERFACE -- Name: XIAO GORMAN Status: REG REF Re07/18/08 Age/Sex: 47/F Unit#: [id number] Location: [facility] : 58 -- Specimen: [id number] [id number] Spec Date: 07/18/[address]: Yulissa [...] was evaluated with the assistance of the [employer] Pap Test Imaging System. The Pap Smear [...] 7 -- -- DEPARTMENT OF PATHOLOGY, [address] [place] [address] [facility] Permit #[id number] Denny Holbrook M.D. Director Ronda Faustin M.D. Bottle Packing Machine Cleaner Dir sury -- 91 Test performed by: [facility] [employer] [address] [place], [place] [address] N^NEGATIVE^HELAG 92 Lymphopenia % 93 Anion gap [...] <0.06 ng/ml NOT SUPPORTIVE OF DIAGNOSIS OF DC 0.06 - 0.50 ng/ml INDETERMINATE: SUGGEST SERIAL STUDIES IF CLINICALLY INDICATED. > 0.5 ng/ml CONSISTENT WITH DIAGNOSIS OF DC . 101 Anion gap measurement may be of limited value in the presence of any alkalosis, especially in a combined acid base disorder. . 102 Classification: Desirable . 103 CALCULATED LDL APPROXIMATES THE VALUE OF A DIRECT LDL MEASUREMENT. Classification: Optimal Level . Procedures Date Code Description Status 11/22/2018 85713 Dexa Bone Density Study One Or More Sites Axial Completed Skeleton 09/29/2018 61215930 Mammogram Completed 10/24/2017 26326 Omt 3 To 4 Body Regions Involved Completed 09/09/2017 82495 Destruction Of Skin Lesions Up To 14 Flat Completed Warts/Molluscum Contag 06/21/2016 48225 Dexa Bone Density Study One Or More Sites Axial Completed Skeleton 04/14/2016 44298 SC/Im Injections Completed 07/22/2015 70811 Omt 3 To 4 Body Regions Involved Completed 09/20/2014 46466216 Colonoscopy Completed 01/16/2014 60484 Injection Intralesional Up To 7 Completed 01/16/2014 85172 Dexa Bone Density Study One Or More Sites Axial Completed Skeleton 12/14/2013 93911 Injection Intralesional Up To 7 Completed 08/30/2013 55796 Injection Intralesional Up To 7 Completed 06/29/2010 21304 Oximetry, Single Completed 06/29/2010 42529 Electrocardiogram Complete Completed 03/31/2009 0 Payment Completed 01/23/2009 35363 Electrocardiogram Complete Completed 02/13/2004 81508 Omt 3 To 4 Body Regions Involved Completed Encounters Type Date Location Provider Dx Diagnosis Office Visit 10/13/2018 1:45p Main Office Gabriel [...] Office Visit 07/17/2018 4:20p Main Office Tessy Conte J01.90 Acute sinusitis, P.A. unspecified G47.00 Insomnia, unspecified Office Visit 10/24/2017 10:45a Main Office Gabriel Becker D.OAbraham M54.5 Low back pain M25.562 Pain in [...] Office Visit 01/12/2017 11:00a Main Office Darcie Montana F41.9 Anxiety disorder, PA unspecified H81.12 Benign paroxysmal vertigo, left ear Office Visit 01/11/2017 9:45a Main Office Gabriel Becker H81.12 Benign paroxysmal D.O. vertigo, left ear [...] Office Visit 05/19/2016 3:30p Main Office Gabriel Becker D.O. R11.0 Nausea R42 Dizziness and giddiness [...] D.O. 729.82 Cramp Of Limb V58.69 Medications Global Chief Experience Officer (Current) Use Encounter 695.2 Erythema Nodosum Office Visit 06/08/2013 4:00p Main Office Tessy Conte 354.0 Carpal Tunnel P.A. Syndrome V58.69 Medications Half-Way (Current) Use Encounter 723.1 Cervicalgia 724.5 Backache [...] Other Spec Site 723.1 Cervicalgia V72.31 Routine Sewer Maintenance Supervisor Examination Office Visit 12/05/2012 4:00p Main Office Tessy Conte 789.09 Pain Abdominal P.A. Other Spec Site 616.10 Vaginitis & Vulvovaginitis Unspec Office Visit 11/23/2012 4:20p Main Office Tessy Conte P.A. 723.1 Cervicalgia 715.90 Osteoarthrosis Unspec Genlzd Or Localized Site Unspec 556.9 Ulcerative Colitis Unspec 461.2 Sinusitis Acute Ethmoidal Office Visit 11/01/2012 4:00p Main Office Tessy Conte, 461.2 Sinusitis Acute P.A. Ethmoidal 379.90 Eye Disorder Unspec Office Visit 06/28/2012 1:40p Main Office Tessy Conte 300.00 Anxiety State P.A. Unspec 309.0 Adjustment Disorder With Depression Office Visit 05/19/2012 10:20a Main Office Tessy Conte 300.00 Anxiety State P.A. Unspec 309.0 Adjustment [...] Office Visit 03/15/2012 11:00a Main Office Tessy Conte 300.00 Anxiety State P.A. Unspec Office Visit 09/03/2011 2:30p Main Office Jose Scott, 724.2 Lumbago M.D. 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 724.5 Backache Unspec 729.2 Neuralgia Neuritis & Radiculitis Unspec 723.1 Cervicalgia Office Visit 04/08/2011 4:00p Main Office Jesus Watson.AAbraham 724.5 Backache Unspec 729.2 Neuralgia Neuritis & [...] Main Office Jose Scott, 300.4 Dysthymic Disorder M.D. 780.52 Insomnia Unspecified 244.8 Hypothyroidism Other Spec 556.9 Ulcerative Colitis Unspec 723.1 Cervicalgia Office Visit 05/16/2009 4:45p Main Office Jose Scott, 300.4 Dysthymic Disorder M.D. 780.52 Insomnia Unspecified Office Visit 01/23/2009 1:45p [...] Yulissa Lopez MD 723.1 Cervicalgia V72.31 Routine Sewer Maintenance Supervisor Examination V72.31 Routine Sewer Maintenance Supervisor Examination 244.8 Hypothyroidism Other Spec V76.2 Screening Malignant Neoplasm Cervix V76.2 Screening Malignant Neoplasm Cervix V72.31 Routine Sewer Maintenance Supervisor Examination 244.8 Hypothyroidism Other Spec 244.8 Hypothyroidism [...] Headache Office Visit 05/10/2007 4:00p Main Office klepack 723.1 Cervicalgia 782.0 Skin Sensation Disturbance 724.5 Backache Unspec Office Visit 04/14/2007 1:00p Main Office klepack 723.1 Cervicalgia 782.0 Skin Sensation Disturbance Office Visit 12/01/2006 4:20p Main Office klepack 719.43 Pain Joint Forearm Office Visit 10/24/2006 4:20p Main Office klepack 719.43 Pain Joint Forearm Office Visit 10/14/2006 2:15p Main Office klepack 724.5 Backache Unspec 787.01 Nausea W/ Vomiting [...] Class Office Visit 03/13/2003 3:30p Main Office rohit 788.41 Urinary Frequency 783.5 Polydipsia
--- OUTSIDE RECORDS SUMMARY | 2018-11-27 20:11 | XMS REPORT | Continuity of Care Document ---
:1960 External Reference #:[id number] Author Name Sari Luis Care Team Providers Name Role Phone Gabriel Becker MD Primary Care Physician Unavailable Payers Date Identification Numbers Payment Provider Subscriber Policy Number: [id number] Shaylaus BC/BS [facility] Xiao Gorman PayID: [id number] [address] [address] [place] [address] Family History Date Family Member(s) Observation Comments Father due to Kidney Failure () Father Alzheimer's Disease Father Lymphoma Father Hypertension Mother Osteoporosis Mother Glaucoma Children 3 First Son A&W Second Son Colitis First Daughter A&W Siblings 3 First Brother Skin Cancer Second Brother Hypercholesterolemia Second Brother Hypertension Second Brother Thyroid Disease First Sister A&W Paternal Grandfather due to VA () Paternal Grandmother due to Stroke () Maternal Grandfather due to VA () Maternal Grandmother due to Multiple Sclerosis () Social History Type Date Description Comments Sex Unknown Education Highest level completed, Bachelor's Degree Marital Status Lives With Spouse Occupation Unemployed Tobacco Use Start: Unknown Never Smoked Cigarettes ETOH Use Denies alcohol use Recreational Drug Use Denies Drug Use Tobacco Use Start: Unknown Patient has never smoked Smoking Status Reviewed: 07/28/18 Patient has never smoked Exercise Type/Frequency Does not exercise Seat Belt/Car Seat Always uses seat belt Currently Active Patient is currently not sexually active Contraceptive Methods Current methods include vasectomy STD's No STD History Allergies, Adverse Reactions, Alerts Active Allergies Reaction Severity Comments Date NKDA 12/16/2014 Gluten 02/02/2017 Medications Active Medications SIG Qnty Indications Ordering Date Provider Estradiol insert 1 tab 24tabs Gloria 07/13/2018 10mcg Tablets vaginally at MD Jagdeep bedtime two times per week Clobetasol Propionate apply thin layer 15units Gloria 07/13/2018 to area bid for 7 MD Jagdeep 0.05% Ointment days then qd for 7 days Bupropion HCL ER (XL) take 1 tablet by Unknown mouth once daily 150mg Tablets ER 24HR Levothyroxine Sodium take 1 tablet by Unknown mouth once daily 100mcg Tablets Lexapro 1 by mouth every Unknown 10mg Tablets day Iron (Ferrous Unknown Sulfate) Multivitamin Adults Unknown Benzonatate Unknown History Medications Zofran Unknown - 07/12/2018 Meclizine HCL Unknown - 07/12/2018 Pepcid Unknown - 07/12/2018 Probiotic Unknown - 07/12/2018 Flonase Allergy Relief Unknown - 07/12/2018 Calcium + D Unknown - 07/11/2018 Carafate Unknown - 07/12/2018 1GM/10ML Suspension Tylenol Unknown - 07/12/2018 325mg Tablets Magnesium Unknown - 07/12/2018 100mg Tablets Probiotic & Acidophilus Unknown - 02/16/2016 Formula Extra Strength Soma Unknown - 07/12/2018 Valium Unknown - 07/12/2018 Zolpidem Tartrate take 1 Tab at bedtime Unknown - 07/12/2018 10mg Tablets if needed for sleep Pantoprazole Sodium take 1 tablet by mouth Unknown - [address] once daily Celecoxib take 1 capsule by Unknown - 02/16/2016 100mg Capsules mouth twice a day if needed for pain Vital Signs Date Vital Result Comment 07/28/2018 3:44pm BP Systolic 114 mmHg BP Diastolic 66 mmHg Height 62 inches 5'2" Weight 151.00 lb BMI (Body Mass Index) 27.6 kg/m2 Last Menstrual Period 5253841 3 Parity 3 07/13/2018 2:52pm BP Systolic 112 mmHg BP Diastolic 80 mmHg Height 62 inches 5'2" Weight 152.00 lb BMI (Body Mass Index) 27.8 kg/m2 3 Parity 3 03/09/2017 3:26pm BP Systolic 122 mmHg BP Diastolic 76 mmHg Height 62 inches 5'2" Weight 147.00 lb BMI (Body Mass Index) 26.9 kg/m2 Last Menstrual Period 0230125 3 Parity 3 02/02/2017 11:10am BP Systolic 130 mmHg BP Diastolic 72 mmHg Height 62 inches 5'2" Weight 147.00 lb BMI (Body Mass Index) 26.9 kg/m2 Last Menstrual Period 1968504 3 Parity 3 02/16/2016 3:50pm BP Systolic 120 mmHg BP Diastolic 80 mmHg Height 62 inches 5'2" Weight 145.00 lb BMI (Body Mass Index) 26.5 kg/m2 Last Menstrual Period 7043595 3 Parity 3 12/16/2014 8:19am BP Systolic 106 mmHg BP Diastolic 58 mmHg Height 62 inches 5'2" Weight 149.00 lb BMI (Body Mass Index) 27.2 kg/m2 Last Menstrual Period 4272908 3 Parity 3 Results Test Date Facility Test Result H/L Range Note Laboratory test 03/09/2017 [facility] Cytology SEE RESULT [address] [place] [address] BELOW [phone] Human Papilloma Virus Rna Negative N Negative 2 Laboratory test 02/16/2016 [facility] Cytology SEE RESULT BELOW [address] [place] [address] [phone] Laboratory test 12/16/2014 [facility] Cytology SEE RESULT BELOW [address] [place], [place] [address] [phone] Human Papilloma Virus Rna Negative N Negative 5 Laboratory test 09/20/2014 [facility] Surgical SEE RESULT [address] [place] [address] Interface Order BELOW [phone] 1 SEE RESULT BELOW Name: XIAO GORMAN : [address]: Gloria Gannon MD Acct: [id number] Unit: [id number] AGE: 56 Location: [facility] Re03/09/17 SEX: F Status: REG REF SPEC: [id number] FADY: 03/09/17-[address]: Gloria Gannon MD REQ: [id number] RECD: 03/10/17 STATUS: SOUT _ ORDERED: TP IMAGE ANAL, HPV/Thin Prep COMMENTS: [id number] FINAL DIAGNOSIS Negative for Intraepithelial lesion or Malignancy A. Ectocervical/Endocervical Specimen Adequacy: Satisfactory of evaluation Transformation zone component identified Patient Information: HPV: High risk HPV RNA testing regardless of pap results. Actual Specimen Date: 03/10/17 Last Menstrual Date: 01/17/16 Date of Last Specimen: 02/16/16 Date Time Test Result Flag (u) Normal Range 03/09/17 1610 HPV RNA Negative Negative The high-risk HPV types detected by the assay include: 16, 18, 31, 33, 35, 39, 45, 51, 52, 56, 58, 59, 66, and 68. Signed (signature on file) Alex CoatesKWADWO mcghee (ASCP) 03/11 1435 This Pap test was evaluated with the assistance of the S3BubblePrep Test Imaging System. Due to cytologic findings at the [place] lakes leverman microscope, comprehensive manual rescreening by a Propagation Manager may be required. The Pap Smear is a screening test designed to aid in the detection of premalignant and malignant conditions of the uterine cervix. It is not a diagnostic procedure and should not be used as the sole means of detecting cervical cancer. Both false- positive and false- negative reports do occur. Depending on your risk status, a Pap smear should be obtained and evaluated every 1-3 years. END OF REPORT * ML=Testing performed at Main Lab DEPARTMENT OF PATHOLOGY, [address] [place] [address] Denny Holbrook M.D. Director [facility] # [id number] 2 The high-risk HPV types detected by the assay include: 16, 18, 31, 33, 35, 39, 45, 51, 52, 56, 58, 59, 66, and 68. 3 SEE RESULT BELOW Name: XIAO GORMAN : [address]: Gloria Gannon MD Acct: [id number] Unit: [id number] AGE: 55 Location: [facility] Re02/16/16 SEX: F Status: REG REF SPEC: [id number] FADY: 02/16/16-[address]: Gloria Gannon MD REQ: [id number] RECD: 02/17/16-1304 STATUS: SOUT _ ORDERED: IMAGE ANALYSIS COMMENTS: [id number] FINAL DIAGNOSIS Negative for Intraepithelial lesion or Malignancy A. Ectocervical/Endocervical Specimen Adequacy: Satisfactory of evaluation Transformation zone component identified Patient Information: HPV: Thin Layer Pap Test w/reflex to high risk HPV RNA testing when ASCUS Actual Specimen Date: 02/16/16 Last Menstrual Date: 01/17/16 Spec Date if unknown: 12/2014 Signed (signature on file) KWADWO Menon(ASCP) 02/17 1234 This Pap test was evaluated with the assistance of the S3BubblePrep Test Imaging System. Due to cytologic findings at the [place] leverman microscope, comprehensive manual rescreening by a Propagation Manager may be required. The Pap Smear is a screening test designed to aid in the detection of premalignant and malignant conditions of the uterine cervix. It is not a diagnostic procedure and should not be used as the sole means of detecting cervical cancer. Both false- positive and false- negative reports do occur. Depending on your risk status, a Pap smear should be obtained and evaluated every 1-3 years. END OF REPORT * ML=Testing performed at Main Lab DEPARTMENT OF PATHOLOGY, [address] [place] [address] Denny Holbrook M.D. Director [facility] # [id number] 4 SEE RESULT BELOW Name: XIAO GORMAN : [address]: Gloria Gannon MD Acct: [id number] Unit: [id number] AGE: 54 Location: [facility] Re12/16/14 SEX: F Status: REG REF SPEC: [id number] FADY: 12/16/[address] [facility] [address]: Gloria Gannon MD REQ: [id number] RECD: 12/16/14 STATUS: SOUT _ ORDERED: IMAGE ANALYSIS, HPV/Thin Prep FINAL DIAGNOSIS Negative for Intraepithelial lesion or Malignancy A. Ectocervical/Endocervical Specimen Adequacy: Satisfactory of evaluation Transformation zone component identified Patient Information: HPV: High risk HPV RNA testing regardless of pap results. Actual Specimen Date: 12/16/14 Last Menstrual Date: 11/30/14 Spec Date if unknown: 2013 Other Pertinent History: prior specimen 2014 elsewhere Date Time Test Result Flag (u) Normal Range 12/16/14 0927 HPV RNA Negative Negative The high-risk HPV types detected by the assay include: 16, 18, 31, 33, 35, 39, 45, 51, 52, 56, 58, 59, 66, and 68. Signed (signature on file) Jimmary Card 12/17/14 1406 This Pap test was evaluated with the assistance of the [employer] Test Imaging System. Due to cytologic findings at the [place] leverman microscope, comprehensive manual rescreening by a Propagation Manager may be required. The Pap Smear is a screening test designed to aid in the detection of premalignant and malignant conditions of the uterine cervix. It is not a diagnostic procedure and should not be used as the sole means of detecting cervical cancer. Both false- positive and false- negative reports do occur. Depending on your risk status, a Pap smear should be obtained and evaluated every 1-3 years. END OF REPORT * ML=Testing performed at Main Lab DEPARTMENT OF PATHOLOGY, [address], [place], [place] [address] Denny Holbrook M.D. Director [facility] # [id number] 5 The high-risk HPV types detected by the assay include: 16, 18, 31, 33, 35, 39, 45, 51, 52, 56, 58, 59, 66, and 68. 6 SEE RESULT BELOW Name: XIAO GORMAN : [address]: Juan Pablo Bolden MD Acct: [id number] Unit: [id number] AGE: 54 Location: [facility] Re09/20/14 SEX: F Status: REG REF SPEC: [id number] FADY: 09/20/14-[address] [facility] [address]: Juan Pablo Bolden MD REQ: [id number] RECD: 09/20/14 STATUS: ZELDA LUTHER DR: Gloria [...] performed at Main Lab DEPARTMENT OF PATHOLOGY, [address] [place] [address] Denny Holbrook M.D. Director [facility] # [id number] RUN DATE: 09/24/14 [facility] LAB LIVE PAGE 2 Patient: XIAO GORMAN [id number] (Continued) SPECIMEN COMMENTS (Continued) Comment: The cecum [...] performed at Main Lab DEPARTMENT OF PATHOLOGY, [address] [place] [address] Denny Holbrook M.D. Director [facility] # [id number] RUN DATE: 09/24/14 [facility] LAB LIVE PAGE 3 Patient: XIAO GORMAN [id number] (Continued) GROSS DESCRIPTION (Continued) GROSS DESCRIPTION (Continued) [...] performed at Main Lab DEPARTMENT OF PATHOLOGY, [address] [place] [address] Denny Holbrook M.D. 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
--- OUTSIDE RECORDS SUMMARY | 2018-11-27 20:11 | XMS REPORT | Continuity of Care Document ---
:1960 External Reference #:[id number] Author Name Sari Luis Care Team Providers Name Role Phone Gabriel Becker MD Primary Care Physician Unavailable Payers Date Identification Numbers Payment Provider Subscriber Policy Number: [id number] Shaylaus BC/BS [facility] Xiao Gorman PayID: [id number] [address] [address] [place] [address] Family History Date Family Member(s) Observation Comments Father due to Kidney Failure () Father Alzheimer's Disease Father Lymphoma Father Hypertension Mother Osteoporosis Mother Glaucoma Children 3 First Son A&W Second Son Colitis First Daughter A&W Siblings 3 First Brother Skin Cancer Second Brother Hypercholesterolemia Second Brother Hypertension Second Brother Thyroid Disease First Sister A&W Paternal Grandfather due to DC () Paternal Grandmother due to Stroke () Maternal Grandfather due to DC () Maternal Grandmother due to Multiple Sclerosis [...] Mass Index) 27.6 kg/m2 Last Menstrual Period 2458136 3 Parity 3 07/13/2018 2:52pm BP Systolic 112 mmHg BP Diastolic 80 mmHg Height 62 inches 5'2" Weight 152.00 lb BMI (Body Mass Index) 27.8 kg/m2 3 Parity 3 03/09/2017 3:26pm BP Systolic 122 mmHg BP Diastolic 76 mmHg Height 62 inches 5'2" Weight 147.00 lb BMI (Body Mass Index) 26.9 kg/m2 Last Menstrual Period 8989758 3 Parity 3 02/02/2017 11:10am BP Systolic 130 mmHg BP Diastolic 72 mmHg Height 62 inches 5'2" Weight 147.00 lb BMI (Body Mass Index) 26.9 kg/m2 Last Menstrual Period 4434842 3 Parity 3 02/16/2016 3:50pm BP Systolic 120 mmHg BP Diastolic 80 mmHg Height 62 inches 5'2" Weight 145.00 lb BMI (Body Mass Index) 26.5 kg/m2 Last Menstrual Period 6488374 3 Parity 3 12/16/2014 8:19am BP Systolic 106 mmHg BP Diastolic 58 mmHg Height 62 inches 5'2" Weight 149.00 lb BMI (Body Mass Index) 27.2 kg/m2 Last Menstrual Period 7319660 3 Parity 3 Results Test Date Facility Test Result H/L Range Note Laboratory test 03/09/2017 [facility] Cytology SEE RESULT 1 [place] [address] BELOW [phone] Human Papilloma Virus Rna Negative N Negative 2 Laboratory test 02/16/2016 [facility] Cytology SEE RESULT BELOW [address] [place] [address] [phone] Laboratory test 12/16/2014 [facility] Cytology SEE RESULT BELOW [address] [place], [place] [address] [phone] Human Papilloma Virus Rna Negative N Negative 5 Laboratory test 09/20/2014 [facility] Surgical SEE RESULT [address] [place] [address] Interface Order BELOW [phone] 1 SEE RESULT BELOW Name: XIAO GORMAN : [address]: Gloria Gannon MD Acct: [id number] Unit: [id number] AGE: 56 Location: [facility] Re03/09/17 SEX: F Status: REG REF SPEC: [id number] FADY: 03/09/17-[address]: Gloria Gannon MD REQ: [id number] RECD: 03/10/17 STATUS: SOUT _ ORDERED: TP IMAGE ANAL, HPV/Thin Prep COMMENTS: [id number] FINAL DIAGNOSIS Negative for Intraepithelial lesion or [...] was evaluated with the assistance of the [employer] Express[employer] Test Imaging System. Due to cytologic findings at the certified nursing assistant instructor microscope, comprehensive manual rescreening by a Machine Ceramic Coater may be required. The Pap Smear is [...] performed at Main Lab DEPARTMENT OF PATHOLOGY, [address] [place] [address] Denny Holbrook M.D. Director [facility] # [id number] 2 The high-risk HPV types detected by the assay include: 16, 18, 31, 33, 35, 39, 45, 51, 52, 56, 58, 59, 66, and 68. 3 SEE RESULT BELOW Name: XIAO GORMAN : [address]: Gloria Gannon MD Acct: [id number] Unit: [id number] AGE: 55 Location: [facility] Re02/16/16 SEX: F Status: REG REF SPEC: [id number] FADY: 02/16/16-[address]: Gloria Gannon MD REQ: [id number] RECD: 02/17/16-1304 STATUS: SOUT _ ORDERED: IMAGE ANALYSIS COMMENTS: [id number] FINAL DIAGNOSIS Negative for Intraepithelial lesion or [...] was evaluated with the assistance of the [employer] ExpressPrep Test Imaging System. Due to cytologic findings at the certified nursing assistant instructor microscope, comprehensive manual rescreening by a Machine Ceramic Coater may be required. The Pap Smear is [...] performed at Main Lab DEPARTMENT OF PATHOLOGY, [address] [place] [address] Denny Holbrook M.D. Director [facility] # [id number] 4 SEE RESULT BELOW Name: XIAO GORMAN : [address]: Gloria Gannon MD Acct: [id number] Unit: [id number] AGE: 54 Location: [facility] Re12/16/14 SEX: F Status: REG REF SPEC: [id number] FADY: 12/16/[address] [facility] [address]: Gloria Gannon MD REQ: [id number] RECD: 12/16/14 STATUS: SOUT _ ORDERED: IMAGE [...] was evaluated with the assistance of the [employer] Test Imaging System. Due to cytologic findings at the certified nursing assistant instructor microscope, comprehensive manual rescreening by a Machine Ceramic Coater may be required. The Pap Smear is [...] PATHOLOGY, [address], [place], [place] [address] Denny Holbrook M.D. Director [facility] # [id number] 5 The high-risk HPV types detected by the assay include: 16, 18, 31, 33, 35, 39, 45, 51, 52, 56, 58, 59, 66, and 68. 6 SEE RESULT BELOW Name: XIAO GORMAN : [address]: Juan Pablo Bolden MD Acct: [id number] Unit: [id number] AGE: 54 Location: [facility] Re09/20/14 SEX: F Status: REG REF SPEC: [id number] FADY: 09/20/14-[address] [facility] [address]: Juan Pablo Bolden MD REQ: [id number] RECD: 09/20/14 STATUS: ZELDA LUTHER DR: Gloria [...] performed at Main Lab DEPARTMENT OF PATHOLOGY, [address] [place] [address] Denny Holbrook M.D. Director [facility] # [id number] RUN DATE: 09/24/14 [facility] LAB LIVE PAGE 2 Patient: XIAO GORMAN [id number] (Continued) SPECIMEN COMMENTS (Continued) Comment: The cecum [...] performed at Main Lab DEPARTMENT OF PATHOLOGY, [address] [place] [address] Denny Holbrook M.D. Director [facility] # [id number] RUN DATE: 09/24/14 [facility] LAB LIVE PAGE 3 Patient: XIAO GORMAN [id number] (Continued) GROSS DESCRIPTION (Continued) GROSS DESCRIPTION (Continued) [...] performed at Main Lab DEPARTMENT OF PATHOLOGY, [address] [place] [address] Denny Holbrook M.D. Director [facility] # [id number] Procedures Date Code Description Status 05/09/2017 [id number] Mammogram Completed 03/09/2017 68938 Echography Transvaginal Completed 05/09/2014 45116660 Colonoscopy Completed Encounters Type Date Location Provider Dx Diagnosis Office Visit 03/09/[address] 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
[2018-11-27 20:24] VITALS: BP 127/75
--- NOTE | 2018-11-27 20:39 | ED ---
Skin Complaint - HPI Summary HPI Summary: Patient is a 58-year-old female who presents to the urgent care with a chief complaint of having erythema, swelling, and pain in the right side of the right nostril. Patient has been with the symptoms for the last couple days and today is getting worse. She reports that everything started with a small pimple and now she has more erythema and pain. She denies any fevers or chills, she has a headache because of the infection, and she has no other complaints. - History of Current Complaint Chief Complaint: UCSkin Time Seen by Provider: 11/27/18 20:24 Stated Complaint: POSSIBLE INFECTION Hx Obtained From: Patient Hx Last Menstrual Period: post menopause Skin Exposure Onset/Duration: Days Ago Timing: Constant Onset Severity: Mild Current Severity: Mild Pain Intensity: 3 - Allergy/Home Medications Allergies/Adverse Reactions: Allergies Allergy/AdvReac Type Severity Reaction Status Date / Time amoxicillin Allergy Abdominal Verified 11/27/18 20:26 Pain citalopram [From Celexa] Allergy GI Upset Verified 11/27/18 20:26 gabapentin Allergy GI Upset Verified 11/27/18 20:26 meloxicam Allergy Abdominal Verified 11/27/18 20:26 Pain GLUTEN INTOLERANCE Allergy ABDOMINAL Uncoded 11/28/17 13:40 AND NEUROLOGICAL ISSUES MOST ORAL ANTIBIOTICS Allergy GI Upset Uncoded 11/28/17 13:40 Home Medications: Home Medications Calcium Carbonate [Calcium] 11/27/18 [History] Escitalopram Oxalate [Lexapro 10 mg] 11/27/18 [History] PMH/Surg Hx/FS Hx/Imm Hx Previously Healthy: Yes Endocrine/Hematology History: Reports: Hx Thyroid Disease, Hx Anemia - IRON DEFICIENCY Denies: Hx Diabetes Cardiovascular History: Denies: Hx Hypertension, Hx Pacemaker/ICD Respiratory History: Reports: Hx Asthma - ulcerative colitis GI History: Reports: Hx Gastroesophageal Reflux Disease - HX OF, Hx Ulcer, Other GI Disorders - ulcerative colitis, gluten intolerance History: Reports: 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, Other Problems/Disorders - 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 UNKNOWN Musculoskeletal History: Reports: Hx Arthritis - BILATERAL THUMBS,, Hx Tendonitis, Other Musculoskeletal History - DEGENERATIVE DISC DISEASE Denies: Hx Scoliosis Sensory History: Reports: Hx Contacts or Glasses - GLASSES Denies: Hx Hearing Aid Opthamlomology History: Reports: Hx Contacts or Glasses - GLASSES Neurological History: Denies: Hx Headaches, Other Neuro Impairments/Disorders Psychiatric History: Reports: Hx Anxiety - CONTROL WITH MED, Hx Depression - CONTROL WITH MEDS Denies: Hx Panic Disorder - Cancer History Hx Chemotherapy: No Hx Radiation Therapy: No - Surgical History Surgery Procedure, Year, and Place: 2000 LEFT KNEE ACL RECONSTRUCTION. [facility]. 2012 URETHRAL DILITATION FOR CONGENTAL PROBLEM, OFFICE. EXCISION OF LESION FROM BRIDGE OF NOSE, [facility]. multiple surgeries on wrists bilaterally. 2015 RIGHT WRIST DEQUERVAINS RELEASE AND CORTISONE INJECTIONS BILATERAL THUMBS, [facility]. ARTHROPLASTY JOINT REMOVAL BASAL THUMBS. 04/2016-LEFT THUMB [facility] Hx Anesthesia Reactions: Yes - NAUSEA - Immunization History Date of Tetanus Vaccine: unknown Infectious Disease History: No Infectious Disease History: Denies: Traveled Outside the [place] in Last 30 Days - Family History Known Family History: Positive: None - Pt denies, Non-Contributory Family History: R & n/C - Social History Alcohol Use: None Hx Substance Use: No Substance Use Type: Reports: Excessive Caffeine Hx Tobacco Use: No Smoking Status (MU): Never Smoked Tobacco Review of Systems Constitutional: Negative Eyes: Negative ENT: Negative Cardiovascular: Negative Respiratory: Negative Gastrointestinal: Negative Genitourinary: Negative Musculoskeletal: Negative Positive: Other - erythema, swelling, and pain in the right Tuesday noted. Neurological: Negative Psychological: Normal All Other Systems Reviewed And Are Negative: Yes Physical Exam - Summary Physical Exam Summary: VITAL SIGNS: Reviewed. GENERAL: Patient is a well developed and nourished female who is lying comfortably in the stretcher. Patient is not in any acute respiratory distress. HEAD AND FACE: No signs of trauma. No ecchymosis, hematomas or skull depressions. No sinus tenderness. EYES: PERRLA, EOMI x 2, No injected conjunctiva, no nystagmus. EARS: Hearing grossly intact. Ear canals and tympanic membranes are within normal limits. MOUTH: Oropharynx within normal limits. NECK: Supple, trachea is midline, no adenopathy, no JVD, no carotid bruit, no c- spine tenderness, neck with full ROM. CHEST: Symmetric, no tenderness at palpation LUNGS: Clear to auscultation bilaterally. No wheezing or crackles. CVS: Regular rate and rhythm, S1 and S2 present, no murmurs or gallops appreciated. ABDOMEN: Soft, non-tender. No signs of distention. No rebound no guarding, and no masses palpated. Bowel sounds are normal. EXTREMITIES: FROM in all major joints, no edema, no cyanosis or clubbing. NEURO: Alert and oriented x 3. No acute neurological deficits. Speech is normal and follows commands. SKIN: Dry and warm. Positive erythema, swelling, tenderness in the right side of the nostril. Triage Information Reviewed: Yes Vital Signs On Initial Exam: Initial Vitals Temp Pulse Resp BP Pulse Ox 98.6 F 62 16 127/75 99 11/27/18 20:17 11/27/18 20:17 11/27/18 20:17 11/27/18 20:17 11/27/18 20:17 Vital Signs Reviewed: Yes Appearance: Positive: Well-Appearing Diagnostics - Vital Signs Vital Signs Temp Pulse Resp BP Pulse Ox 11/27/18 20:17 98.6 F 62 16 127/75 99 - Laboratory Lab Statement: Any lab studies that have been ordered have been reviewed, and results considered in the medical decision making process. Course/Dx - Course Assessment/Plan: Patient has and sclerae cellulitis. Therefore the patient will be given a prescription for Bactrim for 7 days. Patient is to follow with the primary care physician. The patient is hemodynamically stable alert and oriented 3. - Diagnoses Provider Diagnoses: Cellulitis Discharge - Sign-Out/Discharge Documenting (check all that apply): Patient Departure All imaging exams completed and their final reports reviewed: No Studies - Discharge Plan Condition: Stable Disposition: HOME Prescriptions: Sulfamethox/Trimethoprim DS* [Bactrim DS 800/160 TAB*] 1 tab PO BID #14 tab Patient Education Materials: Cellulitis (ED) Referrals: Gabriel Becker DO [Primary Care Provider] - Additional Instructions: Take medications as instructed Increase your fluid intake F/U with PCP in the next 2-3 days Return to the if symptoms worsen - Billing Disposition and Condition Condition: STABLE Disposition: Home
== END 2018-11-27 20:48 | disposition home or self-care (01) ==
LOC: UCEAST 20:02
DX: J34.0 Abscess, furuncle and carbuncle of nose (principal)
CPT/HCPCS: 99202; G0463